=== PATIENT | male | born 1955 | race Caucasian/White ===

== ENCOUNTER 2019-05-17 12:31 | Outpatient (RCR) | payer MEDICARE, SELFPAY ==
[2019-03-12 10:21] LABS: INR 1.6; Prothrombin Time 18.8 Seconds (11.1-14.7)
[2019-03-15 12:17] LABS: INR 2.1
[2019-04-03 10:44] LABS: INR 3.8; Prothrombin Time 36.8 Seconds (11.1-14.7)
[2019-05-07 15:29] LABS: Prothrombin Time 12.9 Seconds (11.1-14.7)
[2019-05-17 13:07] LABS: INR 2.3; Prothrombin Time 25.1 Seconds (11.1-14.7)
== END 2019-06-03 23:59 | disposition home or self-care (01) ==
LOC: ANHLAB 12:31
PROVIDERS: Visit Provider Internal Medicine Cardiovascular Disease
DX: Z95.4 Presence of other heart-valve replacement (principal); Z79.01 Long term (current) use of anticoagulants
CPT/HCPCS: 36415; 85610

== ENCOUNTER 2019-07-04 15:19 | Inpatient (IN) | payer MEDICARE, SELFPAY ==
[2019-07-04] VITALS (26 sets, daily range): BP systolic 77–132; BP diastolic 44–79; PULSE 56–80; RESP 10–23; TEMP 35.8–36.8; O2SAT 93–100; BMI 24.0
--- NOTE | ~2019-07-04 | US_ITS ---
US right upper quadrant INDICATION: Possible choledocholithiasis PROCEDURE: Realtime right upper abdominal ultrasound. COMPARISON: No prior studies for comparison. FINDINGS: The pancreas is normal without focal mass or pancreatic ductal dilation. Fatty infiltratio n of the liver. There is normal directional flow in the portal vein. There are gallstones. Mild gallbladder wall thickening. Common bile duct measures 9 mm. No sonograph ic Luis's sign. IMPRESSION: 1: Choledocholithiasis with dilated common bile duct measuring 9 mm and mild gallbladder wall thicken ing. Findings suspicious for acute cholecystitis. Correlate clinically. Reviewed, dictated and finalized at location A. IMPRESSION: 1: Choledocholithiasis with dilated common bile duct measuring 9 mm and mild ga llbladder wall thickening. Findings suspicious for acute cholecystitis. Correla te clinically.
--- NOTE | ~2019-07-04 | CT_ITS ---
EXAMINATION: CT abdomen pelvis wo con DATE: 07/09/2019 09:19 INDICATION: Right lower quadrant abscess, pain TECHNIQUE: Computed tomography (CT) of the abdomen and pelvis was performed without intravenous contr ast. Automated exposure control and iterative reconstruction technique were employed. Exam dose: 629 .50 mGy-cm total exam DLP. COMPARISON: 07/04/2019 CT abdomen pelvis FINDINGS: There are mild bilateral pleural effusions. No pericardial effusion. There is dependent ate lectasis in both lower lobes. Plate and screws are noted at the sternum; status post aortic valve rep lacement. Coronary artery calcification. Again noted is an approximately 13 mm left hepatic cyst. Calcified splenic granulomas. Multiple stones are noted in the dependent aspect of the gallbladder. No gallbladder wall thickening or pericholecystic fluid or stranding. Small stones are suggested in the common bile duct that there is no common bile duct or pancreatic du ct dilatation. Minimal calcification of the pancreatic head. Normal morphology of the adrenal glands. Again noted are abdominal aortic and right and left common iliac artery aneurysms as described on 07/03. No intraperitoneal or retroperitoneal mass lesion or lymphadenopathy. There is minimal free fluid in the dependent pelvis. There is a percutaneous drainage catheter in the right lower quadrant with nearly complete resolution of right lower quadrant abscess, with minimal remaining fluid and free air. Prostate calcifications. The urinary bladder and seminal vesicles are unremarkable. No bowel obstruction is evident. There is mild anterior wedge compression fracture deformity of L2. Degenerative changes of the thorac ic us and lumbar spine. 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 Reviewed, dictated and finalized at location B. 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
--- NOTE | ~2019-07-04 | XR_ITS ---
EXAMINATION: XR chest 2V EXAM DATE: 07/04/2019 19:39 INDICATION: Cough, right lower quadrant pain. History CHF hypertension. TECHNIQUE: Frontal and lateral projections of the chest obtained and reviewed. Comparison is made to prior examination from 05/10/2019. FINDINGS: Aortic valve replacement. Sternotomy hardware. The lungs are clear. There are no pleural effusions. The cardiomediastinal silhouette is within normal limits. There is no pneumothorax suspe cted. Mild to moderate thoracic spondylosis. IMPRESSION: No acute cardiopulmonary findings. Reviewed, dictated and finalized at location A. [employer]
--- NOTE | ~2019-07-04 | CT_ITS ---
EXAMINATION: CT guide absc cath placement DATE: 07/05/2019 10:41 INDICATION: Periappendiceal abscess. TECHNIQUE: The procedure including the risks, benefits, and alternatives was discussed with the patie nt. Risks discussed included bleeding and infection. The patient understood the risks and benefits an d agreed to proceed. The patient was confirmed to be receiving appropriate antibiotic coverage. The skin overlying the abdomen was prepped and draped in usual sterile fashion. Anesthetic was administe red with 1% lidocaine subcutaneously. Sedation was provided by anesthesiology. An 18 gauge trochar ne edle was inserted into the periappendiceal abscess with CT guidance. The needle was exchanged over a wire for 6 Guatemalan, 8 Guatemalan, and 9 Guatemalan dilators and then for an 8.5 Guatemalan pigtail catheter. The c atheter was stitched to the skin, and a sterile dressing was applied. The mA was adjusted according t o patient size. Iterative reconstruction technique was employed. The dose-length product was 113.92 m Gy-cm. There were no immediate complications. FINDINGS: CT images demonstrate the catheter within the periappendiceal abscess. 6 mL fluid was aspir ated for testing. IMPRESSION: 1. Successful CT-guided periappendiceal abscess drainage. 2. 6 mL foul-smelling, opaque, red-mercado fluid was sent for aerobic and anaerobic cultures. Reviewed, dictated and finalized at location A. MATIC BUFFING WHEEL FORMER
--- NOTE | ~2019-07-04 | CT_ITS ---
EXAMINATION: CT abdomen pelvis w con EXAM DATE: 07/04/2019 19:31 INDICATION: Right lower quadrant pain. TECHNIQUE: Spiral CT of the abdomen and pelvis was performed following intravenous injection of 100 m L Omnipaque 350. Axial, coronal and sagittal images were reviewed. The dose-length product (DLP) fo r this examination was 456.29 mGy-cm. The exposure was tailored according to patient size (auto mA e xposure control), and iterative reconstruction (ASIR) was used as additional dose reduction technique . There is no prior study for comparison. FINDINGS: There is severe edema, inflammation of the terminal ileum and cecal base, with a fluid neil ection which appears to involve the wall of both of these 2 structures measuring about 6 x 10 cm in s ize. There are septations within this wall, some tiny foci of gas and surrounding inflammation. Appen gilmar is not identified. Differential diagnosis includes appendical abscess, cancer, terminal ileitis. No small bowel obstruction. There is a hypodensity in the left liver lobe measuring 1.3 cm consistent with a cyst. The spleen, p ancreas, and adrenal glands are unremarkable. There are gallstones within an otherwise unremarkable gallbladder. No evidence of obstructive biliary disease. Portal and splenic veins are patent. Kidn eys enhance symmetrically. There is no hydronephrosis. The prostate is unremarkable. The bladder is unremarkable. There is no retroperitoneal or pelvic lymphadenopathy. There is abdominal aortic aneurysm measuring 4.1 x 3.5 cm. The right common iliac artery is also aneurysmal at 2.6 cm. Smaller left common iliac artery at 2.3 cm. Aortic valve replacement. Sternotomy wires. The lung bases are unremarkable. There are no osteoblas tic or osteolytic lesions identified. Small umbilical fat-containing hernia. IMPRESSION: 1. Large right lower quadrant abscess involving the patricia of the cecal base and terminal ileum. Coul d be perforated appendicitis with abscess. Differential diagnosis does include cancer, terminal ileit is. 2. Abdominal aortic, common iliac artery aneurysms. Reviewed, dictated and finalized at location A. L MUSIC INSTRUCTOR IMPRESSION: 1. Large right lower quadrant abscess involving the patricia of the cecal base an d terminal ileum. Could be perforated appendicitis with abscess. Differential d iagnosis does include cancer, terminal ileitis. 2. Abdominal aortic, common iliac artery aneurysms.
--- NOTE | ~2019-07-04 | CT_ITS ---
EXAMINATION: CT guide absc cath placement DATE: 07/06/2019 12:14 INDICATION: Periappendiceal abscess. TECHNIQUE: The procedure including the risks, benefits, and alternatives was discussed with the patie nt. Risks discussed included bleeding and infection. The patient understood the risks and benefits an d agreed to proceed. The patient was confirmed to be receiving appropriate antibiotic coverage. The skin overlying the abdomen was prepped and draped in usual sterile fashion. Anesthetic was administe red with 1% lidocaine subcutaneously. The existing abscess drain was cut and exchanged over a wire fo r 10 Serbian, 12 Serbian, and 14 Serbian dilators and then for a 14 Serbian pigtail catheter under [address] candace dance. The catheter was stitched to the skin, and a sterile dressing was applied. The mA was adjusted according to patient size. Iterative reconstruction technique was employed. The dose-length product was 69.68 mGy-cm. There were no immediate complications. FINDINGS: CT images demonstrate the catheter within the periappendiceal abscess. IMPRESSION: 1. Successful CT-guided periappendiceal abscess drain exchange. Reviewed, dictated and finalized at location A. ING MACHINE OPERATOR
[2019-07-04 17:15] LABS: Basophils Absolute Auto 0.1 K/mm3 (0.0-0.1); Basophils Percent Auto 0.2 % (0.2-1.2); Hematocrit 44.6 % (42.0-52.0); Hemoglobin 14.8 g/dL (14.0-18.0); Immature Granulocyte Absolute 0.39 K/mm3 (0.00-0.031); Immature Granulocyte Percent A 1.5 % (0-0.5); Lymphocytes Percent Auto 3.6 % (18.3-44.2); Mean Corpuscular HGB Conc 33.2 g/dl (32-36); Mean Corpuscular Hemoglobin 28.1 pg (26-34); Mean Corpuscular Volume 84.6 fl (80-100); Mean Platelet Volume 10.1 fl (7.4-10.4); Neutrophils Absolute Auto 21.9 K/mm3 (1.3-6.7); Neutrophils Percent Auto 86.7 % (45.5-73.1); Platelet Count Result 411 k/mm3 (150-375); Red Blood Count 5.27 M/mm3 (4.6-6.20); Red Cell Distribution Width 14.2 % (11.5-14.5); White Blood Count 25.3 K/mm3 (4.5-10.0)
[2019-07-04 17:27] LABS: Alanine Aminotransferase 24 U/L (4-50); Albumin Level 3.9 g/dL (3.5-5.1); Alkaline Phosphatase 116 U/L (38-126); Aspartate Amino Transferase 27 U/L (17-59); Bilirubin,Total 0.7 mg/dL (0.2-1.3); Blood Urea Nitrogen 25 mg/dL (9-20); Calcium 9.1 mg/dL (8.4-10.2); Carbon Dioxide 30 mmol/L (22-30); Chloride 85 mmol/L (98-107); Estimated CRCL calculation 51 ml/min; Estimated Glomerular Filt Rate 55; Glucose 279 mg/dL (75-110); Lipase 39 U/L (23-300); Potassium 3.9 mmol/L (3.4-5.0); Sodium 131 mmol/L (137-145)
--- NOTE | 2019-07-04 18:56 | ED.ABDPAIN ---
HPI - Abdominal Pain General Chief Complaint: Abdominal Pain Stated Complaint: blood in stool Time Seen by Provider: 07/04/19 18:54 Source: patient Mode of arrival: ambulatory Limitations: no limitations History of Present Illness HPI narrative: A 64 y/o male pt presents to the ED, with c/o ABD pain x 5 days that is worsening and dark stools that began today. Pt notes sweats, N/V/D, cough, bulging to the rt side of his ABD, SOB d/t pain, but denies dysuria, obvious blood in stools, or frequent/infrequent urination. Pt denies having any similar episodes to this in the past. He notes that laying down and sitting up aggravates his pain. Pt notes a PMHx of CHF, AL, DM. He states that he was prescribed Trulicity for his DM, but he was taken off of this d/t his BS being maintained. Pt reports being hospitalised for his CHF in May 2019. He denies any recent Abx use and reports NKA. Pt rates his pain as a 10. MD elicited complaint: abdominal pain Onset (ago): day(s) (5) Pain Consistency: other (worsening) Location: other (rt abd) Pain scale (0-10): 10 Exacerbating factors: movement Associated symptoms: nausea, vomiting, diarrhea and other (sweats, cough, bulging in rt ABD, SOB d/t pain, dark stools) Related Data Home Medications Medication Instructions Recorded Confirmed aspirin 81 mg PO DAILY 05/10/19 05/10/19 clopidogrel 75 mg PO DAILY 05/10/19 05/10/19 escitalopram oxalate [Lexapro] 20 mg PO DAILY 05/10/19 05/10/19 furosemide 40 mg PO DAILY 05/10/19 05/10/19 gabapentin 300 mg PO TID 05/10/19 05/10/19 isosorbide mononitrate 60 mg PO DAILY 05/10/19 05/10/19 lisinopril 5 mg PO DAILY 05/10/19 05/10/19 nitroglycerin 0.4 mg SUBLINGUAL Q5M PRN 05/10/19 05/10/19 rosuvastatin 20 mg PO DAILY 05/10/19 05/10/19 Allergies Allergy/AdvReac Type Severity Reaction Status Date / Time No Known Allergies Allergy Verified 05/10/19 15:55 Review of Systems Review of Systems: All systems reviewed & are unremarkable except as noted in HPI and below Constitutional: Constitutional: Reports excessive sweating Respiratory: Respiratory: Reports cough and Reports dyspnea (d/t pain) Gastrointestinal: Gastrointestinal: Reports abdominal pain (rt side, rt side bulging), Reports diarrhea, Reports nausea, Reports vomiting and Reports other (dark stools) Genitourinary: Genitourinary: Denies dysuria, Denies urinary frequency and Denies other (infrequent urination) [facility] Past Medical History Medical History Angina at rest Atrial flutter Congestive heart failure Echocardiogram July 2018 showed ejection fraction of 30 to 35% with moderate to severe mitral regurgitation, aortic valve area of 1.3 centimeter squared with mean gradient 8 millimeters of mercury, mild tricuspid regurgitation, and RVSP of 50 to 55 millimeters of mercury. Coronary artery disease Depression Diabetes History of left common carotid artery stent placement March 2019, Bib Bender History of right common carotid artery stent placement December 2018, Bib Villarreal Hyperlipidemia Hypertension Ischemic cardiomyopathy Myocardial infarction Neoplasm of prostate Peripheral vascular disease 2013: Bilateral common femoral artery rectum ease and patch angioplasty by Dr. Moreno 2014: Complex intervention of both femoral arteries and SFA is by Dr. Yancey Tobacco use Surgical History Surgical History H/O aortic valve replacement 2003, mechanical aortic valve replacement H/O mechanical aortic valve replacement H/O Spinal surgery H/O vascular surgery Bilateral common femoral endarterectomy with patch angioplasty in 2012. Status post complex intervention of, and superficial femoral artery History of cardiac cath 03/2011: SVG to PDA occluded, radial to OM was string sign, and MALDONADO to LAD was patent. 09/2018: Chronic total occlusion of the mid LAD and mid RCA as well as proximal circumflex with patent
--- NOTE | 2019-07-04 19:29 | PC.NURSE ---
Called lab to add on on PT INT, PTT
[2019-07-04] MEDS: SODIUM CHLORIDE 0.9% IV 1,000 ML 999 ML IV CONT ×2 (19:41→21:22)
[2019-07-04 19:42] LABS: Lactic Acid Reflex 2.3 mmol/L (0.7-2.1)
[2019-07-04 20:07] LABS: CRP 20.9 mg/dL (<1.0)
[2019-07-04 20:55] LABS: Prothrombin Time > 120.0 Seconds (11.1-14.7)
[2019-07-04 20:57] LABS: INR > 19.0
[2019-07-04 20:58] LABS: Partial Thromboplastin Time 182.9 SECONDS (22.3-36.8)
[2019-07-04] MEDS: PHYTONADIONE INJ 10 MG/ML AMP IM (21:06)
[2019-07-04 21:26] LABS: Add Urine Microscopic? YES; Appearance Urine Clear (Clear); Bilirubin Urine Negative (Negative); Blood Urine 1+ (Negative); Color Urine Yellow (Yellow); Glucose Urine UA 1+ mg/dL (Negative); Ketones Urine Negative (Negative); Leukocyte Esterase Ur Negative LEU/UL (Negative); Mucus Urine Rare /lpf; Nitrate Urine Negative (Negative); Protein Urine 1+ mg/dL (Negative); Specific Grav Ur 1.041 (1.001-1.035); Squamous Epithelial Cell Urine Rare /hpf (Few); Urobilinogen Urine Negative mg/dL (<2.0)
--- NOTE | 2019-07-04 21:30 | PM.IMHP ---
H&P: HPI History of Present Illness Chief complaint: sepsis intra abdominal abscess Narrative: This is a 64 year old Diabetic male with known atrial flutter, CHF, CAD, mechanical aortic valve on chronic anticoagulation w/ warfarin presented to the hospital tonight after having worsening RLQ abdominal pain for the past 5 days. He initially developed RLQ abdominal pain while doing yardwork and simply thought he had pulled a muscle. He has had chills but no overt fevers. He also complains of associated diaphoresis, sporadic cough, and abdominal distention. He has been nauseated but denies any vomiting. He has had diarrhea which he noted was black in color. Today he had #2 episodes of bloody nose. He denies any other symptoms tonight and denies any chest pain. The patient was evaluated in the ER tonight and found to be severely septic with an elevated WBC of 25,300, tachypneic, and an elevated lactic acid of 2.3. CT abd pelvis demonstrated a large right lower quadrant abscess involving the patricia of the cecal base and terminal ileum. The patient's INR came back at 19. General Surgery has been consulted by ER provider and has asked that we admit the patient to the hospital and they will evaluate him. Review of Systems Review of Systems: All systems reviewed & are unremarkable except as noted in HPI and below PMFSH Past Medical History Medical History Angina at rest Atrial flutter Congestive heart failure Echocardiogram July 2018 showed ejection fraction of 30 to 35% with moderate to severe mitral regurgitation, aortic valve area of 1.3 centimeter squared with mean gradient 8 millimeters of mercury, mild tricuspid regurgitation, and RVSP of 50 to 55 millimeters of mercury. Coronary artery disease Depression Diabetes History of left common carotid artery stent placement March 2019, Bib Bender History of right common carotid artery stent placement December 2018, Bib Villarreal Hyperlipidemia Hypertension Ischemic cardiomyopathy Myocardial infarction Neoplasm of prostate Peripheral vascular disease 2013: Bilateral common femoral artery rectum ease and patch angioplasty by Dr. Moreno 2014: Complex intervention of both femoral arteries and SFA is by Dr. Yancey Tobacco use Surgical History Surgical History (Updated 07/04/19 @ 21:42 by Mark Tapia MD) H/O aortic valve replacement 2003, mechanical aortic valve replacement H/O mechanical aortic valve replacement H/O Spinal surgery H/O vascular surgery Bilateral common femoral endarterectomy with patch angioplasty in 2012. Status post complex intervention of, and superficial femoral artery History of cardiac cath 03/2011: SVG to PDA occluded, radial to OM was string sign, and MALDONADO to LAD was patent. 09/2018: Chronic total occlusion of the mid LAD and mid RCA as well as proximal circumflex with patent MALDONADO to LAD. History of endarterectomy Bilateral. S/P CABG x 2 2009. Status post cataract extraction Family History Family History Mother Diabetes mellitus Breast cancer Hypertension Sibling Diabetes mellitus Hypertension Father Hypertension Pneumonia Social History Social History Social History: Lives with girlfriend, Nathaly, in [place]. They have a pit bull named Dayna and a pot belly pig named Thien. 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 Smokes half a pack per day, but smoked as much as 2 packs of cigarettes a day. Occasionally smokes marijuana. Denies alcohol abuse. he designates his girlfriend, Dari, as his surrogate decision maker and wishes to be a full code. Smoking packs per day: 0.5 Smoking cigarettes per day: 10.0 Years smoked: 40 Smoking pack-years: 20.00 Smoking status: Current every day smoker Tobacco type: cigarettes Second hand tobacco smoke exposure: Yes Alcohol intake: never
--- NOTE | 2019-07-04 21:35 | ADMGEN ---
This patient, Onel He, was admitted to Intensive Care Unit-5. Patient/family oriented to hospital policies and general routines including ID bracelet, bed and alarms, visiting hours, pain management, procedures, bathroom and other care routines, personal items, smoking policy, room service/diet, and visiting hours. Valuables list has been completed. Information on how to activate the Rapid Response Team has been discussed. Patient/Family are encouraged to report perceived risks to care and to ask questions if they do not understand what they are told or what they should do.
--- NOTE | 2019-07-04 21:45 | ECG_ITS ---
Measurements Intervals [place] Rate: 76 P: [place]: 0 QRS: 48 QRSD: 119 T: 108 QT: 435 QTc: 491 Interpretive Statements ATRIAL FLUTTER/TACHYCARDIA INTRAVENTRICULAR CONDUCTION DELAY DELAYED PRECORDIAL R/S TRANSITION CONSIDER INFERIOR INFARCT, AGE INDETERMINATE BORDERLINE ST-T WAVE ABNORMALITY- ANTEROLAT/LAT LEADS BASELINE WANDER- V1-V3 ABNORMAL ECG Electronically Signed On 07-07-2019 12:41:10 ASSAYER by Jake Bird D.O.
[2019-07-04 22:22] LABS: Lactic Acid Reflex 1.3 mmol/L (0.7-2.1)
[2019-07-04 22:27] LABS: Reflex Lactic Acid Yes or No Add Lactic
[2019-07-04] MEDS: SODIUM CHLORIDE 0.9% IV 250 ML 30 ML IV CONT (23:17)
[2019-07-04 23:47] LABS: Glucose Point of Care 174 (65-105)
[2019-07-05] VITALS (20 sets, daily range): BP systolic 103–142; BP diastolic 65–108; PULSE 63–122; RESP 16–25; TEMP 36.4–37.4; O2SAT 91–99
[2019-07-05 04:34] LABS: IFOB Positive Control Positive; Immunochemical Fecal Occult Bl Positive (N)
[2019-07-05] MEDS: SODIUM CHLORIDE 0.9% IV 1,000 ML 50 ML IV CONT (05:05)
[2019-07-05 06:11] LABS: Basophils Percent Auto 0.2 % (0.2-1.2); Eosinophils Percent Auto 0.1 % (0-4.4); Hemoglobin 10.8 g/dL (14.0-18.0); Immature Granulocyte Absolute 0.22 K/mm3 (0.00-0.031); Immature Granulocyte Percent A 1.2 % (0-0.5); Lymphocytes Absolute Auto 0.77 K/mm3 (0.9-3.2); Lymphocytes Percent Auto 4.1 % (18.3-44.2); Mean Corpuscular HGB Conc 32.7 g/dl (32-36); Mean Corpuscular Hemoglobin 27.9 pg (26-34); Mean Corpuscular Volume 85.3 fl (80-100); Mean Platelet Volume 9.9 fl (7.4-10.4); Monocytes Absolute Auto 1.7 K/mm3 (0.1-0.6); Monocytes Percent Auto 9.1 % (2.6-8.5); Neutrophils Absolute Auto 15.8 K/mm3 (1.3-6.7); Neutrophils Percent Auto 85.3 % (45.5-73.1); Platelet Count Result 309 k/mm3 (150-375); Red Blood Count 3.87 M/mm3 (4.6-6.20); Red Cell Distribution Width 14.2 % (11.5-14.5); White Blood Count 18.6 K/mm3 (4.5-10.0)
[2019-07-05 06:20] LABS: INR 2.9; Prothrombin Time 29.7 Seconds (11.1-14.7)
[2019-07-05 06:22] LABS: Partial Thromboplastin Time 73.5 SECONDS (22.3-36.8)
--- NOTE | 2019-07-05 07:43 | PM.CNGS ---
Assessment and Plan Assessment and plan (1) Severe sepsis: Code(s): A41.9 - Sepsis, unspecified organism; R65.20 - Severe sepsis without septic shock Status: Acute Assessment and Plan: Improving with critical care management per Dr. bates. Patient has received IV fluids antibiotics. We will proceed with source control today with CT-guided drainage of the right lower quadrant abscess. (2) Abdominal abscess: Status: Acute Assessment and Plan: Proceed with CT-guided drainage of abscess per Radiology. If this does not provide adequate source control, he will need operative drainage. Keep patient NPO and do not restart Plavix or warfarin. (3) Supratherapeutic INR: Code(s): R79.1 - Abnormal coagulation profile Status: Acute Assessment and Plan: Improved after vitamin K and FFP (4) Lactic acidosis: Code(s): E87.2 - Acidosis Status: Acute Assessment and Plan: improving. (5) COPD (chronic obstructive pulmonary disease): Qualifiers: COPD type: unspecified COPD Qualified Code(s): J44.9 - Chronic obstructive pulmonary disease, unspecified Code(s): J44.9 - Chronic obstructive pulmonary disease, unspecified Status: Chronic (6) CHF (congestive heart failure): Qualifiers: Heart failure chronicity: unspecified Heart failure type: unspecified Qualified Code(s): I50.9 - Heart failure, unspecified Code(s): I50.9 - Heart failure, unspecified Status: Chronic (7) Tobacco use: Code(s): Z72.0 - Tobacco use Status: Chronic History of Present Illness Consult details Consult date: 07/05/19 Reason for consult: abdominal pain ( Right lower quadrant for the last 5 days) Narrative: patient is a 64-year-old man with severe cardiac cerebral and peripheral vascular disease. He has had coronary artery bypass and aortic valve replacement. He has also had bilateral carotid artery stents and bilateral femoral endarterectomies as well as bilateral femoral angioplasty and stenting. He has an ejection fraction of 30-35%. He was admitted with congestive heart failure in May of this year. He smokes both cigarettes and occasionally marijuana. He presented to the emergency room with a 5 day history of severe right lower quadrant abdominal pain. In the emergency room he was noted to have a right lower quadrant mass. CT scan showed this to be a large abscess adjacent to the cecum. He had severe coagulopathy last night with INR over 19 and a PT of over 120. He received vitamin K as well as 3 units of FFP. He has also had fluid resuscitation for sepsis. He has been on antibiotics. His protime was down to 29.7 this morning. His INR is now 2.9. APTT is 73.5. I reviewed his CT scan myself and he does have a large abscess in the right lower quadrant most likely due to ruptured appendicitis. He is seen now in consultation. Plans are to proceed with CT-guided drainage later today. He currently feels better and his pain is less than it was last night. He has not had any fever but his initial temperature in the emergency room was 35.8. His blood pressure was low initially and the lowest measurement was 77/44. He has responded to the above therapy including fluid resuscitation and pressures now are 120/70 or better. Review of Systems Review of Systems: All systems reviewed & are unremarkable except as noted in HPI and below Constitutional: Constitutional: Denies headache(s) ENT: Denies headache(s) Cardiovascular: Cardiovascular: Denies chest pain and Denies dyspnea Respiratory: Respiratory: Denies cough and Denies dyspnea Gastrointestinal: Gastrointestinal: Reports as per HPI Neurologic: Denies confusion and Denies headache(s) Psychiatric: Psychiatric: Denies confusion Hematologic/Lymphatic: Hematologic/Lymphatic: Reports easy bleeding and Reports easy bruising Comments: takes both Coumadin and Plavix. PMFSH
--- NOTE | 2019-07-05 08:03 | WPDMODSED ---
Moderate Sedation Note-Pt Data Patient Data Diagnosis: Periappendiceal abscess. Present Complaint: Periappendiceal abscess. Procedure to be performed/Plan: CT-guided periappendiceal abscess drainage. Allergies Allergy/AdvReac Type Severity Reaction Status Date / Time No Known Allergies Allergy Verified 05/10/19 15:55 Home Medications Medication Instructions Recorded Confirmed Type aspirin 81 mg PO DAILY 05/10/19 07/04/19 History clopidogrel 75 mg PO DAILY 05/10/19 07/04/19 History escitalopram oxalate [Lexapro] 20 mg PO DAILY 05/10/19 07/04/19 History furosemide 40 mg PO DAILY 05/10/19 07/04/19 History gabapentin 300 mg PO TID 05/10/19 07/04/19 History isosorbide mononitrate 60 mg PO DAILY 05/10/19 07/04/19 History lisinopril 5 mg PO DAILY 05/10/19 07/04/19 History nitroglycerin 0.4 mg SUBLINGUAL Q5M PRN 05/10/19 07/04/19 History rosuvastatin 20 mg PO DAILY 05/10/19 07/04/19 History metoprolol succinate [Toprol XL] 12.5 mg PO QAM #30 tablet 05/11/19 07/04/19 Rx warfarin [Coumadin] 2 mg PO 3XW 07/04/19 07/04/19 History warfarin [Coumadin] 5 mg PO 3XW 07/04/19 07/04/19 History warfarin [Coumadin] 6 mg PO 4XW 07/04/19 07/04/19 History Current Medications: Active Medications Dextrose (Dextrose 50% Syringe) 12.5 gm IV PUSH PRN PRN; Protocol PRN Reason: Hypoglycemia Glucagon (Glucagon For Inj) 1 mg IM PRN PRN; Protocol PRN Reason: Hypoglycemia Piperacillin/Tazobactam/Dextrose (Zosyn 3.375 Gm/D5w 50ml Pm) 3.375 gm in 50 mls @ 100 mls/hr IVPB Q6HR ABBEY Last Infusion: 07/05/19 05:35 Dose: Infused Documented by: Acetaminophen (Ofirmev 1,000 Mg Ivpb) 1,000 mg in 100 mls @ 400 mls/hr IVPB Q6H PRN PRN Reason: Pain Rated 4-6 Stop: 07/05/19 21:49 Dextrose (Dextrose 5% 1,000 Ml) 1,000 mls @ 100 mls/hr IVPB PRN PRN; Protocol PRN Reason: Hypoglycemia Sodium Chloride (Normal Saline Iv) 1,000 mls @ 50 mls/hr IV CONT .Q20H [facility] Last Admin: 07/05/19 05:05 Dose: 50 mls/hr Documented by: Insulin Aspart (Novolog) 2 - 5 units SUB-Q TIDWM ABBEY; Protocol Sedation/Anesthesia: No previous sedation/anesthesia problems (including family history). [facility] Past Medical History Medical History Angina at rest Atrial flutter Congestive heart failure Echocardiogram July 2018 showed ejection fraction of 30 to 35% with moderate to severe mitral regurgitation, aortic valve area of 1.3 centimeter squared with mean gradient 8 millimeters of mercury, mild tricuspid regurgitation, and RVSP of 50 to 55 millimeters of mercury. Coronary artery disease Depression Diabetes History of left common carotid artery stent placement March 2019, Bib Bender History of right common carotid artery stent placement December 2018, Bib Villarreal Hyperlipidemia Hypertension Ischemic cardiomyopathy Myocardial infarction Neoplasm of prostate Peripheral vascular disease 2013: Bilateral common femoral artery rectum ease and patch angioplasty by Dr. Moreno 2014: Complex intervention of both femoral arteries and SFA is by Dr. Yancey Tobacco use Surgical History Surgical History H/O aortic valve replacement 2003, mechanical aortic valve replacement H/O mechanical aortic valve replacement H/O Spinal surgery H/O vascular surgery Bilateral common femoral endarterectomy with patch angioplasty in 2012. Status post complex intervention of, and superficial femoral artery History of cardiac cath 03/2011: SVG to PDA occluded, radial to OM was string sign, and MALDONADO to LAD was patent. 09/2018: Chronic total occlusion of the mid LAD and mid RCA as well as proximal circumflex with patent MALDONADO to LAD. History of endarterectomy Bilateral. S/P CABG x 2 2009. Status post cataract extraction Family History Family History Mother Diabetes mellitus Breast cancer Hypertension Sibling Diabetes mellitus Hypertension Father
--- NOTE | 2019-07-05 08:46 | WPDCNINT ---
Assessment and Plan Assessment and plan (1) Severe sepsis: Code(s): A41.9 - Sepsis, unspecified organism; R65.20 - Severe sepsis without septic shock Status: Acute Assessment and Plan: patient with severe sepsis, elevated lactic acid, supratherapeutic INR and leukocytosis or chills. Likely related to abdominal abscess - continue Zosyn - patient adequately fluid-resuscitated - lactic acid has normalized - blood cultures obtained and pending (2) Abdominal abscess: Status: Acute Assessment and Plan: appreciate surgery evaluation and recommendations. Patient to proceed with CT-guided drainage of right lower quadrant abscess - will send fluid for culture - pain control (3) Supratherapeutic INR: Code(s): R79.1 - Abnormal coagulation profile Status: Acute Assessment and Plan: patient presented with supratherapeutic INR > 19. patient was given 2 units of FFP is and vitamin K, this morning INR is 2.9 (4) Ischemic cardiomyopathy: Code(s): I25.5 - Ischemic cardiomyopathy Status: Acute Assessment and Plan: patient has history of ischemic cardiomyopathy - echocardiogram on 05/11/2019 showed an EF of 30-35% with moderately reduced LV systolic function. Aortic valve mechanical prosthesis is poorly visualized, functional valve area 1.6 centimeters squared. No prosthetic regurgitation. (5) H/O mechanical aortic valve replacement: Code(s): Z95.2 - Presence of prosthetic heart valve Status: Chronic Assessment and Plan: Patient on Coumadin, INR supratherapeutic, received FFP and vitamin K, INR 2.9 (6) Atrial flutter: Qualifiers: Atrial flutter type: unspecified Qualified Code(s): I48.92 - Unspecified atrial flutter Code(s): I48.92 - Unspecified atrial flutter Status: Chronic Assessment and Plan: Rate controlled atrial flutter (7) DVT prophylaxis: Code(s): Z29.9 - Encounter for prophylactic measures, unspecified Status: Acute Assessment and Plan: therapeutic INR Additional Plan discussed with patient updated with his condition and plan of care. He is aware that his abscess is going to be drained today. Code status: Full code Critical care time spent: 43 minutes Due to a high probability of clinically significant, life threatening deterioration, the patient required my highest level of preparedness to intervene emergently and I personally spent this critical care time directly and personally managing the patient. This critical care time included obtaining a history; examining the patient; pulse oximetry; ordering and review of studies; arranging urgent treatment with development of a management plan; evaluation of patient's response to treatment; frequent reassessment; and discussions with other providers. It was exclusive of separately billable procedures and treating other patients and teaching time. Please see Assessment and Plan section and the rest of the note for further information on patient assessment and treatment [facility] Consult Note Consult date: 07/05/19 Time Seen: 07:01 Reason for consult: severe sepsis, intra-abdominal abscess HPI: Onel He is a 64 year old male with significant past medical history of ischemic cardiomyopathy, diabetes, atrial flutter, CHF, mechanical aortic valve on chronic anticoagulation with warfarin, peripheral vascular disease presented the ED on 07/04/2019 with complains of worsening right lower abdominal pain for about 5 days. In the emergency room he was noted to have a right lower quadrant mass it CT scan showed this to be a large abscess adjacent to the cecum. He denies any fevers but complained of chills along with diaphoresis, sporadic cough and abdominal distension. Patient also complained of nausea but no vomiting. He has been having diarrhea which is noted to be black in color. He also had 2 episodes of epistaxis. David
--- NOTE | 2019-07-05 09:37 | WPDANESEPPF ---
Anes - Initial Pre Proc Eval Procedure: Drain placement under CT Date/Time: 07/05/19 09:37 Surgeon: Gary Pre Op Diagnosis: sepsis intra abdominal abscess Patient Data Age: 64 Gender: M Height: 1.75 m Weight: 74.3 kg Last Vital Signs Temp 36.5 C 07/05/19 08:00 Pulse 75 07/05/19 08:00 Resp 16 07/05/19 08:00 BP 142/76 H 07/05/19 08:00 Pulse Ox 99 07/05/19 08:00 Allergies Allergy/AdvReac Type Severity Reaction Status Date / Time No Known Allergies Allergy Verified 05/10/19 15:55 Home Medications Medication Instructions Recorded Confirmed Type aspirin 81 mg PO DAILY 05/10/19 07/04/19 History clopidogrel 75 mg PO DAILY 05/10/19 07/04/19 History escitalopram oxalate [Lexapro] 20 mg PO DAILY 05/10/19 07/04/19 History furosemide 40 mg PO DAILY 05/10/19 07/04/19 History gabapentin 300 mg PO TID 05/10/19 07/04/19 History isosorbide mononitrate 60 mg PO DAILY 05/10/19 07/04/19 History lisinopril 5 mg PO DAILY 05/10/19 07/04/19 History nitroglycerin 0.4 mg SUBLINGUAL Q5M PRN 05/10/19 07/04/19 History rosuvastatin 20 mg PO DAILY 05/10/19 07/04/19 History metoprolol succinate [Toprol XL] 12.5 mg PO QAM #30 tablet 05/11/19 07/04/19 Rx warfarin [Coumadin] 2 mg PO 3XW 07/04/19 07/04/19 History warfarin [Coumadin] 5 mg PO 3XW 07/04/19 07/04/19 History warfarin [Coumadin] 6 mg PO 4XW 07/04/19 07/04/19 History Laboratory Tests 07/04/19 07/04/19 07/04/19 17:07 17:07 19:22 WBC 25.3 K/mm3 H K/mm3 (4.5-10.0) RBC 5.27 M/mm3 M/mm3 (4.6-6.20) Hgb 14.8 g/dL g/dL (14.0-18.0) Hct 44.6 % % (42.0-52.0) MCV 84.6 fl fl (80-100) MCH 28.1 pg pg (26-34) MCHC 33.2 g/dl g/dl (32-36) RDW 14.2 % % (11.5-14.5) Plt Count 411 k/mm3 H k/mm3 (150-375) MPV 10.1 fl fl (7.4-10.4) Immature Gran % (Auto) 1.5 % H % (0-0.5) Neut % (Auto) 86.7 % H % (45.5-73.1) Lymph % (Auto) 3.6 % L % (18.3-44.2) V[place] % (Auto) 8.0 % % (2.6-8.5) Eos % (Auto) 0.0 % % (0-4.4) Baso % (Auto) 0.2 % % (0.2-1.2) Lymph # (Auto) 0.90 K/mm3 K/mm3 (0.9-3.2) [place] # (Auto) 2.0 K/mm3 H K/mm3 (0.1-0.6) Eos # (Auto) 0.0 K/mm3 K/mm3 (0-0.3) Baso # (Auto) 0.1 K/mm3 K/mm3 (0.0-0.1) Abs Immat Gran (auto) 0.39 K/mm3 H K/mm3 (0.00-0.031) Absolute Neuts (auto) 21.9 K/mm3 H K/mm3 (1.3-6.7) Absolute Nucleated RBC 0.0 K/mm3 K/mm3 (0.0-0.012) Nucleated RBC % 0.0 % % (0.0-0.2) PT INR APTT Sodium 131 mmol/L L mmol/L (137-145) Potassium 3.9 mmol/L mmol/L (3.4-5.0) Chloride 85 mmol/L L mmol/L (98-107) Carbon Dioxide 30 mmol/L mmol/L (22-30) BUN 25 mg/dL H mg/dL (9-20) Creatinine 1.30 mg/dL mg/dL (0.7-1.3) Estim Creat Clear Calc 51 ml/min ml/min Estimated GFR 55 L (59 - ) Glucose 279 mg/dL H mg/dL (75-110) POC Capillary Glucose Lactic Acid 2.3 mmol/L H mmol/L (0.7-2.1) Calcium 9.1 mg/dL mg/dL (8.4-10.2) Total Bilirubin 0.7 mg/dL mg/dL (0.2-1.3) AST 27 U/L U/L (17-59) ALT 24 U/L U/L (4-50) Alkaline Phosphatase 116 U/L U/L (38-126) C-Reactive Protein Total Protein 8.0 g/dL g/dL (6.3-8.2) Albumin 3.9 g/dL g/dL (3.5-5.1) Lipase 39 U/L U/L (23-300) Urine Color Urine Appearance Urine pH Ur Specific [place] Urine Protein Urine Glucose (UA) Urine Ketones Ur Blood (Man) Urine Nitrate Urine Bilirubin Urine Urobilinogen Leukocyte Esterase Rfl Urine RBC Urine WBC Ur Squamous
--- NOTE | 2019-07-05 11:39 | PM.IMPN ---
Progress Note: A&P Assessment and Plan (1) Abdominal abscess: Status: Acute Assessment and Plan: Likely a perforated appendicitis? The patient with severe sepsis from a large abdominal abscess. Percut drain placed today. Follow up on cultures. Continue abx. (2) Severe sepsis: Code(s): A41.9 - Sepsis, unspecified organism; R65.20 - Severe sepsis without septic shock Status: Acute Assessment and Plan: Source of sepsis appears to be intraabdominal abscess. Currently on IV Zosyn Day2. Blood cultures NGTD. Percut drain placed today. Follow up on culture results. Appreciate General Surgery and Switch Operator input. (3) Supratherapeutic INR: Code(s): R79.1 - Abnormal coagulation profile Status: Acute Assessment and Plan: PT/PTT were markedly elevated (unmeasurable). INR reversed w/ vitamin K and FFP. INR better at 2.9. Monitor PT/INR. Start Heparin once INR<2.0. (4) Lactic acidosis: Code(s): E87.2 - Acidosis Status: Acute Assessment and Plan: Secondary to severe sepsis from abdominal abscess. Repeat Lactic acid was normal. (5) CHF (congestive heart failure): Qualifiers: Heart failure chronicity: unspecified Heart failure type: unspecified Qualified Code(s): I50.9 - Heart failure, unspecified Code(s): I50.9 - Heart failure, unspecified Status: Chronic Assessment and Plan: Currently compensated. Monitor Is and Os, daily weights closely. (6) Atrial flutter: Qualifiers: Atrial flutter type: unspecified Qualified Code(s): I48.92 - Unspecified atrial flutter Code(s): I48.92 - Unspecified atrial flutter Status: Chronic Assessment and Plan: Tele reviewed. Patient is rate controlled. Continue to monitor. (7) H/O mechanical aortic valve replacement: Code(s): Z95.2 - Presence of prosthetic heart valve Status: Chronic Assessment and Plan: Patient with a [employer] mechanical valve. INR better. Resume coumadin when appropriate. May need Heparin drip if further surgery/procedure planned. (8) Diabetes: Qualifiers: Diabetes mellitus complication status: without complication Diabetes mellitus loan adviser insulin use: without loan adviser use Diabetes mellitus type: type 2 Qualified Code(s): E11.9 - Type 2 diabetes mellitus without complications Code(s): E11.9 - Type 2 diabetes mellitus without complications Status: Chronic Assessment and Plan: A1c 6.4 last year. Glucose reviewed on 07/05/19 but not many values. Continue accuchecks with SSI Coverage and hypoglycemic protocol. (9) Hypertension: Qualifiers: Hypertension type: unspecified Qualified Code(s): I10 - Essential (primary) hypertension Code(s): I10 - Essential (primary) hypertension Status: Chronic Assessment and Plan: Continue to hold home antihypertensives as the patient has been hypotensive. Monitor blood pressure. Resume home antihypertensives when appropriate. Subjective Date/time seen: 07/05/19 0740 Interval history: 64yo male with chronic AFlutter adn mechanical AVR here for abd abscess. Pateint noted RLQ abdominal pain on Tuesday. Pain progressively worsened and he noted swelling in the RLQ. No fever but subjective chills. Developed nausea and vomiting and diarrhea. Decreased appetite. He was admitted to the ICU. no problems overnight. Pain controlled. Exam Narrative: Exam Narrative: Gen - NARD Chest -expiratory rhonchi anteriorly and flanks. CV - RRR S1/S2; telemetry showing atrial flutter. Abd -soft. Positive bowel sounds. Large, firm and tender right lower quadrant mass. Ext - No pedal edema Psych - Nml mood and affect Skin - Warm and dry Objective Data Vital Signs Vital Signs: Vital Signs - 24 hr 07/04/19 17:00 07/04/19 19:13 07/04/19 19:41 Temperature 96.5 F L 98.3 F Pulse Rate 56 L 80 76 Respi
[2019-07-05] MEDS: PANTOPRAZOLE SODIUM IV 40 MG VIAL IV PUSH ×2 (12:36→22:13)
[2019-07-05 17:19] LABS: Glucose Point of Care 290 (65-105)
[2019-07-05] MEDS: INSULIN ASPART (*BKC) 100 UNITS/ML SUB-Q (17:40)
[2019-07-06] VITALS (12 sets, daily range): BP systolic 75–115; BP diastolic 51–90; PULSE 73–105; RESP 10–20; TEMP 36.4–37.1; O2SAT 93–98; BMI 24.2
[2019-07-06 04:43] LABS: Basophils Absolute Auto 0.1 K/mm3 (0.0-0.1); Basophils Percent Auto 0.3 % (0.2-1.2); Hematocrit 35.9 % (42.0-52.0); Hemoglobin 11.7 g/dL (14.0-18.0); Immature Granulocyte Absolute 0.25 K/mm3 (0.00-0.031); Immature Granulocyte Percent A 1.1 % (0-0.5); Lymphocytes Absolute Auto 0.82 K/mm3 (0.9-3.2); Lymphocytes Percent Auto 3.7 % (18.3-44.2); Mean Corpuscular HGB Conc 32.6 g/dl (32-36); Mean Corpuscular Hemoglobin 28.1 pg (26-34); Mean Corpuscular Volume 86.1 fl (80-100); Mean Platelet Volume 10.2 fl (7.4-10.4); Monocytes Absolute Auto 1.6 K/mm3 (0.1-0.6); Monocytes Percent Auto 7.1 % (2.6-8.5); Neutrophils Absolute Auto 19.2 K/mm3 (1.3-6.7); Neutrophils Percent Auto 87.8 % (45.5-73.1); Platelet Count Result 344 k/mm3 (150-375); Red Blood Count 4.17 M/mm3 (4.6-6.20); Red Cell Distribution Width 14.3 % (11.5-14.5); White Blood Count 21.9 K/mm3 (4.5-10.0)
[2019-07-06 04:55] LABS: Hemoglobin A1C 8.5 % (<5.7)
[2019-07-06 05:00] LABS: Albumin Level 3.1 g/dL (3.5-5.1); Blood Urea Nitrogen 14 mg/dL (9-20); Calcium 8.3 mg/dL (8.4-10.2); Carbon Dioxide 37 mmol/L (22-30); Chloride 91 mmol/L (98-107); Estimated CRCL calculation 65 ml/min; Estimated Glomerular Filt Rate > 60; Glucose 183 mg/dL (75-110); Magnesium 1.7 mg/dL (1.6-2.3); Potassium 3.1 mmol/L (3.4-5.0); Sodium 133 mmol/L (137-145)
[2019-07-06 07:49] LABS: Glucose Point of Care 165 (65-105)
--- NOTE | 2019-07-06 08:44 | PM.PNGS ---
Progress Note: A&P Assessment and Plan (1) Abdominal abscess: Status: Acute Assessment and Plan: Drainage from pigtail has the appearance of fecal matter. If this is the case, the abscess may not be adequately drained with pigtail catheter drainage. 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 . He is definitely improved from yesterday and the day before. Will repeat labs tomorrow and continue clear liquid diet. I will repeat his protime and INR tomorrow as well. Surgery may be necessary but he is a very poor surgical candidate and the decision to operate should not be taken lightly. (2) Severe sepsis: Code(s): A41.9 - Sepsis, unspecified organism; R65.20 - Severe sepsis without septic shock Status: Acute Assessment and Plan: Much improved. Hopefully adequate source control with pigtail catheter drainage done yesterday. Continue IV antibiotics. Okay to transfer from ICU from my perspective. (3) Supratherapeutic INR: Code(s): R79.1 - Abnormal coagulation profile Status: Acute Assessment and Plan: Recheck coags tomorrow. (4) Ischemic cardiomyopathy: Code(s): I25.5 - Ischemic cardiomyopathy Status: Chronic (5) CAD (coronary artery disease): Code(s): I25.10 - Atherosclerotic heart disease of cheesh-na coronary artery without angina pectoris Status: Chronic (6) H/O mechanical aortic valve replacement: Code(s): Z95.2 - Presence of prosthetic heart valve Status: Chronic (7) Tobacco use: Code(s): Z72.0 - Tobacco use Status: Chronic (8) Hypertension: Qualifiers: Hypertension type: unspecified Qualified Code(s): I10 - Essential (primary) hypertension Code(s): I10 - Essential (primary) hypertension Status: Chronic (9) Diabetes: Qualifiers: Diabetes mellitus type: type 2 Diabetes mellitus shelter insulin use: without outside plant supervisor use Diabetes mellitus complication status: without complication Qualified Code(s): E11.9 - Type 2 diabetes mellitus without complications Code(s): E11.9 - Type 2 diabetes mellitus without complications Status: Chronic Subjective Subjective Date/Time Seen: 07/06/19 08:44 Feels better. Right lower quadrant drain site is sore. Tolerated clear liquids without difficulty. Review of Systems Review of Systems: All systems reviewed & are unremarkable except as noted in HPI and below Constitutional: Constitutional: Denies headache(s) ENT: Denies headache(s) Cardiovascular: Cardiovascular: Denies chest pain and Denies dyspnea Respiratory: Respiratory: Denies cough and Denies dyspnea Gastrointestinal: Gastrointestinal: Reports as per HPI Neurologic: Denies confusion and Denies headache(s) Psychiatric: Psychiatric: Denies confusion Exam Const: General: comfortable and no acute distress; No confusion Orientation/consciousness: patient oriented x3 and No confusion GI: Inspection: non-distended and incision ( Right lower quadrant pigtail draining feculent material) GI Palp: Yes Soft to palpation, Yes Tenderness to palpation present (GI) ( right lower quadrant drain site.), No Guarding due to palpation present (GI) and No Rebound tenderness present Auscultation: normal bowel sounds Neuro: General: patient oriented x3, no focal motor deficits and No confusion Extrem: General: no calf tenderness and no edema Psych: Affect: normal affect Insight: Good insight present (Psych) Judgement: Good judgement present (Psych) Objective Data Vital Signs Vital Signs: Vital Signs - 24 hr 07/05/19 10:00 07/05/19 12:00 07/05/19 14:00 Temperature 36.5 C 36.6 C Pulse Rate 80 63 66 Respiratory Rate 22 H 22 H 25 H Blood Pressure 115/73 115/71 133/80 Pulse Oximetry 95 96 95 07/05/19 16:00 07/05/19 18:00 07/05/19 20:00 Temperature 37.4 C 37.2 C Pulse Rate 122 H 94 70 Respiratory Rate 16 22 H 18 Blood Pressure 123/108
[2019-07-06] MEDS: POTASSIUM CHLORIDE 20 MEQ TABLET.ER PO ×3 (09:10→17:00)
[2019-07-06] MEDS: KCL 40 MEQ/D5/0.9% SOD CHL 1,000 ML 60 ML IV CONT (09:10)
[2019-07-06] MEDS: PANTOPRAZOLE 40 MG TABLET PO (09:10)
[2019-07-06 12:29] LABS: Glucose Point of Care 260 (65-105)
[2019-07-06] MEDS: INSULIN ASPART (*BKC) 100 UNITS/ML SUB-Q (12:31)
--- NOTE | 2019-07-06 14:43 | PM.IMPN ---
Progress Note: A&P Assessment and Plan (1) Abdominal abscess: Status: Acute Assessment and Plan: Likely a perforated appendicitis. Can not exclude cancer. The patient with severe sepsis from a large abdominal abscess. Percut drain replaced today. Blood cultures NGTD. Abscess culture pending. Continue abx. Check CEA (2) Severe sepsis: Code(s): A41.9 - Sepsis, unspecified organism; R65.20 - Severe sepsis without septic shock Status: Acute Assessment and Plan: Source of sepsis appears to be intraabdominal abscess. Currently on IV Zosyn Day3. Blood cultures NGTD. MRSA nasal swab negative. Percut drain replaced today. Abscess cx growing GNB and GPC. Follow up on culture results. Appreciate General Surgery. (3) Supratherapeutic INR: Code(s): R79.1 - Abnormal coagulation profile Status: Acute Assessment and Plan: PT/PTT were markedly elevated (unmeasurable). INR reversed w/ vitamin K and FFP. INR better. Monitor PT/INR. Start Heparin once INR<2.0. (4) Lactic acidosis: Code(s): E87.2 - Acidosis Status: Acute Assessment and Plan: Secondary to severe sepsis from abdominal abscess. Repeat Lactic acid was normal. (5) CHF (congestive heart failure): Qualifiers: Heart failure chronicity: unspecified Heart failure type: unspecified Qualified Code(s): I50.9 - Heart failure, unspecified Code(s): I50.9 - Heart failure, unspecified Status: Chronic Assessment and Plan: Currently compensated. Monitor Is and Os, daily weights closely. Still on IVF. (6) Atrial flutter: Qualifiers: Atrial flutter type: unspecified Qualified Code(s): I48.92 - Unspecified atrial flutter Code(s): I48.92 - Unspecified atrial flutter Status: Chronic Assessment and Plan: Tele reviewed. Patient is rate controlled. Continue to monitor. (7) H/O mechanical aortic valve replacement: Code(s): Z95.2 - Presence of prosthetic heart valve Status: Chronic Assessment and Plan: Patient with a [employer] mechanical valve. INR better. Resume coumadin when appropriate. May need Heparin drip if further surgery/procedure planned. (8) Diabetes: Qualifiers: Diabetes mellitus complication status: without complication Diabetes mellitus snf insulin use: without manager intermediate use Diabetes mellitus type: type 2 Qualified Code(s): E11.9 - Type 2 diabetes mellitus without complications Code(s): E11.9 - Type 2 diabetes mellitus without complications Status: Chronic Assessment and Plan: A1c 8.5. Glucose reviewed on 07/06/19 and ranging anywhere from 160-290. Not on home meds for DM. Continue accuchecks with SSI coverage and hypoglycemic protocol. Add Lantus (9) Hypertension: Qualifiers: Hypertension type: unspecified Qualified Code(s): I10 - Essential (primary) hypertension Code(s): I10 - Essential (primary) hypertension Status: Chronic Assessment and Plan: BP reviewed on 07/06/19. BP 75/51 but not felt to be real per RN. BP otherwise stable. Continue to hold home antihypertensive medication for now. Monitor blood pressure. Resume home antihypertensives when appropriate. Subjective Date/time seen: 07/06/19 14:43 Interval history: 64yo male with chronic AFlutter and mechanical AVR here for abd abscess. Pain better controlled. Feels better. Does feel sore in the abdomen. Toelrting clear liquid diet. +flatus. No CP or SOB. Drain replaced today. Exam Narrative: Exam Narrative: Gen - NARD lying semirecumbent in bed Chest -CTA bilaterally. nml RR CV - RRR S1/S2; telemetry showing atrial flutter with variable conduction (currently 2:1). Abd -soft. Positive bowel sounds. RLQ dressing that is clean and dry. chocolate brown liquid in drain Ext - No pedal edema Psych - Nml mood and affect Skin - Warm and dry Objec
[2019-07-06 15:16] LABS: INR 2.8; Prothrombin Time 29.1 Seconds (11.1-14.7)
[2019-07-06 16:45] LABS: Glucose Point of Care 142 (65-105)
[2019-07-06] MEDS: ESCITALOPRAM OXALATE 10 MG TABLET 20 MG PO (16:59)
[2019-07-06] MEDS: GABAPENTIN 300 MG CAPSULE PO ×2 (17:00→21:23)
[2019-07-06 21:47] LABS: Glucose Point of Care 129 (65-105)
[2019-07-06] MEDS: INSULIN GLARGINE (*BKC) 100 UNITS/ML 8 UNITS SUB-Q (22:27)
[2019-07-07] VITALS (14 sets, daily range): BP systolic 91–103; BP diastolic 54–69; PULSE 63–99; RESP 16–22; TEMP 36.1–36.9; O2SAT 90–96
--- NOTE | 2019-07-07 01:18 | ADMGEN ---
This patient, Onel He, was transferred from ICU-5 to IMU Room 201-01 on 07/06/19 at 1900. Patient/family oriented to hospital policies and general routines including ID bracelet, bed and alarms, visiting hours, pain management, procedures, bathroom and other care routines, personal items, smoking policy, room service/diet, and visiting hours. Valuables list has been completed. Report received from ANGY Varela. Information on how to activate the Rapid Response Team has been discussed. Patient/Family are encouraged to report perceived risks to care and to ask questions if they do not understand what they are told or what they should do.
[2019-07-07] MEDS: GABAPENTIN 300 MG CAPSULE PO ×3 (05:08→20:24)
[2019-07-07] MEDS: KCL 40 MEQ/D5/0.9% SOD CHL 1,000 ML 60 ML IV CONT ×2 (05:08→23:35)
[2019-07-07 05:31] LABS: Hematocrit 32.2 % (42.0-52.0); Hemoglobin 10.4 g/dL (14.0-18.0); Mean Corpuscular HGB Conc 32.3 g/dl (32-36); Mean Corpuscular Hemoglobin 28.2 pg (26-34); Mean Corpuscular Volume 87.3 fl (80-100); Mean Platelet Volume 10.4 fl (7.4-10.4); Platelet Count Result 347 k/mm3 (150-375); Red Blood Count 3.69 M/mm3 (4.6-6.20); Red Cell Distribution Width 14.2 % (11.5-14.5); White Blood Count 15.5 K/mm3 (4.5-10.0)
[2019-07-07 05:42] LABS: INR 2.9; Prothrombin Time 29.5 Seconds (11.1-14.7)
[2019-07-07 05:43] LABS: Partial Thromboplastin Time 76.2 SECONDS (22.3-36.8)
[2019-07-07 05:46] LABS: Blood Urea Nitrogen 12 mg/dL (9-20); Calcium 7.6 mg/dL (8.4-10.2); Carbon Dioxide 34 mmol/L (22-30); Chloride 92 mmol/L (98-107); Estimated CRCL calculation 80 ml/min; Estimated Glomerular Filt Rate > 60; Glucose 203 mg/dL (75-110); Potassium 3.4 mmol/L (3.4-5.0); Sodium 129 mmol/L (137-145)
[2019-07-07 06:05] LABS: Glucose Point of Care 210 (65-105)
[2019-07-07 06:15] LABS: Carcinoembryonic Antigen 1.5 ng/mL (0.0-3.0)
[2019-07-07] MEDS: ESCITALOPRAM OXALATE 10 MG TABLET 20 MG PO (09:48)
[2019-07-07] MEDS: POTASSIUM CHLORIDE 20 MEQ TABLET.ER PO ×3 (09:49→17:08)
[2019-07-07] MEDS: PANTOPRAZOLE 40 MG TABLET PO (09:49)
--- NOTE | 2019-07-07 11:37 | PM.IMPN ---
Progress Note: A&P Assessment and Plan (1) Abdominal abscess: Status: Acute Assessment and Plan: Likely a perforated appendicitis. Can not exclude cancer but CEA 1.5. The patient with severe sepsis from a large abdominal abscess. Percut drain in place and clinically improving. Abscess culture growing Strept miliieri. Continue abx. (2) Severe sepsis: Code(s): A41.9 - Sepsis, unspecified organism; R65.20 - Severe sepsis without septic shock Status: Acute Assessment and Plan: Source of sepsis is an intraabdominal abscess. Currently on IV Zosyn Day4. Blood cultures NGTD. MRSA nasal swab negative. Percut drain placed on 07/05/19 but replaced with higher gauge on 07/06/19. Abscess cx results as above. Appreciate General Surgery input. (3) Supratherapeutic INR: Code(s): R79.1 - Abnormal coagulation profile Status: Acute Assessment and Plan: PT/PTT were markedly elevated (unmeasurable). INR reversed w/ vitamin K and FFP. INR better at 2.9 today. Monitor PT/INR. Start Heparin once INR<2.0. (4) Lactic acidosis: Code(s): E87.2 - Acidosis Status: Acute Assessment and Plan: Secondary to severe sepsis from abdominal abscess. Repeat Lactic acid was normal. (5) CHF (congestive heart failure): Qualifiers: Heart failure chronicity: chronic Heart failure type: systolic Qualified Code(s): I50.22 - Chronic systolic (congestive) heart failure Code(s): I50.9 - Heart failure, unspecified Status: Chronic Assessment and Plan: Echo 05/11/19 showing LV EF 30-35%. Currently compensated. +Fluid balance. Monitor Is and Os, daily weights closely. Still on IVF. Watch closely. (6) Atrial flutter: Qualifiers: Atrial flutter type: unspecified Qualified Code(s): I48.92 - Unspecified atrial flutter Code(s): I48.92 - Unspecified atrial flutter Status: Chronic Assessment and Plan: Patient with chronic AFlutter. Heart rate is controlled. Continue to monitor. (7) H/O mechanical aortic valve replacement: Code(s): Z95.2 - Presence of prosthetic heart valve Status: Chronic Assessment and Plan: Patient with a [facility] mechanical valve. Echo 05/11/19 shows that the aortic valve mechanical prosthesis is poorly visualized. Functional valve area 1.6 cm2. No prosthetic regurgitation. INR >19 on admission but better now. Resume coumadin when appropriate. Would recommend Heparin drip if further surgery/procedure planned. (8) Diabetes: Qualifiers: Diabetes mellitus type: type 2 Diabetes mellitus detention insulin use: without detention use Diabetes mellitus complication status: without complication Qualified Code(s): E11.9 - Type 2 diabetes mellitus without complications Code(s): E11.9 - Type 2 diabetes mellitus without complications Status: Chronic Assessment and Plan: A1c 8.5. Glucose reviewed on 07/07/19 and ranging anywhere from 120-210. Not on home meds for DM. Lantus started. Continue accuchecks with SSI coverage and hypoglycemic protocol. Monitor closely if IVF stopped. (9) Hypertension: Qualifiers: Hypertension type: unspecified Qualified Code(s): I10 - Essential (primary) hypertension Code(s): I10 - Essential (primary) hypertension Status: Chronic Assessment and Plan: BP reviewed on 07/07/19. BP 75/51 yesterday but not felt to be real per RN. BP otherwise stable since then. 'Normal' BP possibly related to the sepsis. Takes metoprolol, lisinopril, ISMO and Lasix at home. Continue to hold home antihypertensive medication for now. Monitor blood pressure. Resume home antihypertensives when appropriate. (10) Hypokalemia: Code(s): E87.6 - Hypokalemia Status: Acute Assessment and Plan: Potassium 3.4 today. He currently has potassium in IVF and on oral replacement so julienne
[2019-07-07] MEDS: INSULIN ASPART (*BKC) 100 UNITS/ML SUB-Q ×2 (12:47→17:09)
[2019-07-07 13:01] LABS: Glucose Point of Care 218 (65-105)
--- NOTE | 2019-07-07 14:00 | PM.PNGS ---
Progress Note: A&P Assessment and Plan (1) Abdominal abscess: Status: Acute Assessment and Plan: Seems to be drained better with 14 [place] pigtail catheter rather than the 8.5 Icelandic she had initially. White count is down to 15.5 1000 as well. Abdomen is negative to exam. Will advance to soft diet. (2) Supratherapeutic INR: Code(s): R79.1 - Abnormal coagulation profile Status: Acute Assessment and Plan: INR 2.9 again yesterday (3) Ischemic cardiomyopathy: Code(s): I25.5 - Ischemic cardiomyopathy Status: Chronic Assessment and Plan: poor surgical candidate (4) H/O mechanical aortic valve replacement: Code(s): Z95.2 - Presence of prosthetic heart valve Status: Chronic (5) Peripheral vascular disease: Code(s): I73.9 - Peripheral vascular disease, unspecified Status: Acute (6) History of right common carotid artery stent placement: Code(s): Z98.890 - Other specified postprocedural states; Z95.828 - Presence of other vascular implants and grafts Status: Acute Subjective Subjective Date/Time Seen: 07/07/19 14:00 Patient reports: no new complaints, feels better and pain is less Interval history: Larger pigtail catheter placed yesterday under CT guidance. Seems to be draining better. Patient reports he feels better today. Review of Systems Review of Systems: All systems reviewed & are unremarkable except as noted in HPI and below ( HPI) Constitutional: Constitutional: Denies chills and Denies fever(s) Gastrointestinal: Gastrointestinal: Denies abdominal pain, Denies GI cramping, Denies nausea and Denies vomiting Exam Const: General: comfortable and no acute distress; No confusion Orientation/consciousness: patient oriented x3 and No confusion GI: Inspection: other ( Seropurulent or possibly feculent drainage from pigtail catheter.) GI Palp: Yes Soft to palpation, Yes Tenderness to palpation present (GI) ( tender at exit site of pigtail catheter.), No Guarding due to palpation present (GI), No Palpable mass present and No Rebound tenderness present Auscultation: normal bowel sounds Neuro: General: patient oriented x3, no focal motor deficits and No confusion Extrem: General: no calf tenderness and no edema Psych: Affect: normal affect Insight: Good insight present (Psych) Judgement: Good judgement present (Psych) Objective Data Vital Signs Vital Signs: Vital Signs - 24 hr 07/06/19 16:00 07/06/19 18:00 07/06/19 20:00 Temperature 36.6 C 36.4 C L Pulse Rate 76 75 76 Respiratory Rate 19 18 Blood Pressure 107/60 Pulse Oximetry 97 07/06/19 22:00 07/07/19 00:00 07/07/19 01:31 Temperature 36.1 C L Pulse Rate 75 74 63 Respiratory Rate 18 Blood Pressure 99/54 L Pulse Oximetry 94 07/07/19 04:00 07/07/19 06:00 07/07/19 08:00 Temperature 36.1 C L 36.2 C L Pulse Rate 72 68 73 Respiratory Rate 18 20 Blood Pressure 101/67 100/62 Pulse Oximetry 90 93 07/07/19 10:00 07/07/19 12:00 Temperature 36.6 C Pulse Rate 75 75 Respiratory Rate 20 Blood Pressure 103/69 Pulse Oximetry 93 Intake/Output Intake/Output: Intake & Output 07/04/19 07/05/19 07/06/19 07/07/19 23:59 23:59 23:59 23:59 Intake Total 1050 1734 2588 1432 Output Total 1000 1400 545 Balance 1960 497 0447 887 Meds/Results Medications: Active Medications Generic Name Dose Route Start Last Admin Trade Name Freq PRN Reason Stop Dose Admin Hydrocodone Bitart/Acetaminophen 1 tab 07/06/19 00:17 07/07/19 12:48 [place] 5-325 Mg PO 1 tab Q6H PRN Administration Pain Rated 4-6 Dextrose 12.5 gm 07/04/19 21:50 Dextrose 50% Syringe IV PUSH PRN PRN Hypoglycemia Protocol Escitalopram Oxalate 20 mg 07/06/19 14:55 07/07/19 09:48 Lexapro PO 20 mg DAILY ABBEY Administration Gabapentin 300 mg 07/06/19 14:00 07/07/19 12:50 Neurontin PO 300 mg Q8HR ABBEY Administration
[2019-07-07 17:13] LABS: Glucose Point of Care 220 (65-105)
[2019-07-07 20:25] LABS: Glucose Point of Care 220 (65-105)
[2019-07-07] MEDS: INSULIN GLARGINE (*BKC) 100 UNITS/ML 8 UNITS SUB-Q (20:25)
[2019-07-08] VITALS (15 sets, daily range): BP systolic 100–128; BP diastolic 66–69; PULSE 49–95; RESP 16–22; TEMP 35.8–36.6; O2SAT 94–100
[2019-07-08 01:39] LABS: Glucose Point of Care 171 (65-105)
[2019-07-08 05:12] LABS: Basophils Absolute Auto 0.1 K/mm3 (0.0-0.1); Basophils Percent Auto 0.3 % (0.2-1.2); Eosinophils Absolute Auto 0.1 K/mm3 (0-0.3); Eosinophils Percent Auto 0.5 % (0-4.4); Hematocrit 31.9 % (42.0-52.0); Hemoglobin 10.2 g/dL (14.0-18.0); Immature Granulocyte Absolute 0.29 K/mm3 (0.00-0.031); Immature Granulocyte Percent A 1.7 % (0-0.5); Lymphocytes Absolute Auto 1.48 K/mm3 (0.9-3.2); Lymphocytes Percent Auto 8.5 % (18.3-44.2); Mean Corpuscular Hemoglobin 28.3 pg (26-34); Mean Corpuscular Volume 88.4 fl (80-100); Mean Platelet Volume 10.1 fl (7.4-10.4); Monocytes Absolute Auto 1.2 K/mm3 (0.1-0.6); Monocytes Percent Auto 6.7 % (2.6-8.5); Neutrophils Absolute Auto 14.4 K/mm3 (1.3-6.7); Neutrophils Percent Auto 82.3 % (45.5-73.1); Platelet Count Result 359 k/mm3 (150-375); Red Blood Count 3.61 M/mm3 (4.6-6.20); Red Cell Distribution Width 14.1 % (11.5-14.5); White Blood Count 17.5 K/mm3 (4.5-10.0)
[2019-07-08 05:15] LABS: INR 2.4; Prothrombin Time 25.5 Seconds (11.1-14.7)
[2019-07-08 05:24] LABS: Albumin Level 2.7 g/dL (3.5-5.1); Blood Urea Nitrogen 12 mg/dL (9-20); Calcium 7.6 mg/dL (8.4-10.2); Carbon Dioxide 30 mmol/L (22-30); Chloride 96 mmol/L (98-107); Estimated CRCL calculation 65 ml/min; Estimated Glomerular Filt Rate > 60; Glucose 165 mg/dL (75-110); Magnesium 1.6 mg/dL (1.6-2.3); Potassium 4.2 mmol/L (3.4-5.0); Sodium 130 mmol/L (137-145)
--- NOTE | 2019-07-08 05:26 | PC.NURSE ---
Daylight Savings Time For Daylight Savings Time Ending in the Fall - Clocks are moved back. For Daylight Savings Time Beginning in the Spring - Clocks are moved ahead. For [facility], the time of change occurs at 0200 hrs. Time is taken from the server security administrator. This entry on the patient's chart recognizes the change in time reflected during documentation. Example: 2 entries for vital signs may be charted for 0200 hrs.
[2019-07-08] MEDS: GABAPENTIN 300 MG CAPSULE PO ×3 (05:59→21:12)
[2019-07-08 06:15] LABS: Glucose Point of Care 185 (65-105)
[2019-07-08] MEDS: POTASSIUM CHLORIDE 20 MEQ TABLET.ER PO (09:15)
[2019-07-08] MEDS: PANTOPRAZOLE 40 MG TABLET PO (09:15)
[2019-07-08] MEDS: ESCITALOPRAM OXALATE 10 MG TABLET 20 MG PO (09:15)
[2019-07-08 13:13] LABS: Glucose Point of Care 359 (65-105)
[2019-07-08] MEDS: INSULIN ASPART (*BKC) 100 UNITS/ML SUB-Q (13:14)
--- NOTE | 2019-07-08 15:31 | PM.PNGS ---
Progress Note: A&P Assessment and Plan (1) Abdominal abscess: Status: Acute Assessment and Plan: seems to be well drained. Continue IV Zosyn antibiotics. Will recheck CT scan tomorrow. Advance to diabetic diet. WBC trending down but slightly higher today than yesterday. (2) Supratherapeutic INR: Code(s): R79.1 - Abnormal coagulation profile Status: Acute Assessment and Plan: Protime 25.5 today. Continue to monitor. (3) CHF (congestive heart failure): Qualifiers: Heart failure chronicity: chronic Heart failure type: systolic Qualified Code(s): I50.22 - Chronic systolic (congestive) heart failure Code(s): I50.9 - Heart failure, unspecified Status: Chronic (4) COPD (chronic obstructive pulmonary disease): Qualifiers: COPD type: unspecified COPD Qualified Code(s): J44.9 - Chronic obstructive pulmonary disease, unspecified Code(s): J44.9 - Chronic obstructive pulmonary disease, unspecified Status: Chronic (5) Tobacco use: Code(s): Z72.0 - Tobacco use Status: Chronic (6) H/O mechanical aortic valve replacement: Code(s): Z95.2 - Presence of prosthetic heart valve Status: Chronic (7) Peripheral vascular disease: Code(s): I73.9 - Peripheral vascular disease, unspecified Status: Acute (8) History of right common carotid artery stent placement: Code(s): Z98.890 - Other specified postprocedural states; Z95.828 - Presence of other vascular implants and grafts Status: Acute (9) History of left common carotid artery stent placement: Code(s): Z98.890 - Other specified postprocedural states; Z95.828 - Presence of other vascular implants and grafts Status: Acute (10) CAD (coronary artery disease): Code(s): I25.10 - Atherosclerotic heart disease of [place] coronary artery without angina pectoris Status: Chronic Subjective Subjective Date/Time Seen: 07/08/19 15:31 no complaints. Tolerating solid food and having bowel movements. No fever or chills. Review of Systems Review of Systems: All systems reviewed & are unremarkable except as noted in HPI and below ( HPI) Constitutional: Constitutional: Denies chills, Denies fever(s), Reports lethargy and Denies night sweats Gastrointestinal: Gastrointestinal: Denies abdominal pain ( some soreness at pigtail drainage site), Denies bloating, Denies diarrhea, Denies nausea and Denies vomiting Exam GI: Inspection: non-distended and other ( output from pigtail 90 cc yesterday. Seems to be less today.) GI Palp: Yes Soft to palpation, Yes Tenderness to palpation present (GI) ( At pigtail catheter site only) and No Guarding due to palpation present (GI) Auscultation: normal bowel sounds Objective Data Vital Signs Vital Signs: Vital Signs - 24 hr 07/07/19 16:00 07/07/19 18:00 07/07/19 19:14 Temperature 36.4 C L 36.9 C Pulse Rate 74 75 72 Respiratory Rate 16 22 H Blood Pressure 91/58 L 101/63 Pulse Oximetry 96 95 07/07/19 20:00 07/07/19 22:00 07/07/19 23:57 Temperature 36.6 C Pulse Rate 72 98 74 Respiratory Rate 22 H 18 Blood Pressure 102/68 Pulse Oximetry 95 96 07/08/19 00:00 07/08/19 01:46 07/08/19 04:00 Temperature Pulse Rate 74 87 73 Respiratory Rate 18 16 Blood Pressure Pulse Oximetry 96 95 07/08/19 04:29 07/08/19 06:00 07/08/19 07:49 Temperature 36.1 C L 35.8 C L Pulse Rate 72 70 63 Respiratory Rate 16 20 Blood Pressure 108/66 100/67 Pulse Oximetry 95 95 07/08/19 08:00 07/08/19 10:00 07/08/19 12:00 Temperature 36.3 C L Pulse Rate 72 75 72 Respiratory Rate 20 Blood Pressure 128/68 Pulse Oximetry 99 Intake/Output Intake/Output: Intake & Output 07/05/19 07/06/19 07/07/19 07/09/19 23:59 23:59 23:59 00:59 Intake Total 1734 8268 3912 2219 Output Total 1000 1400 1165 1940 Balance 736 5354 3541 279 Meds/Results Medications: Active Medications
--- NOTE | 2019-07-08 17:12 | PM.IMPN ---
Progress Note: A&P Assessment and Plan (1) Abdominal abscess: Status: Acute Assessment and Plan: Likely a perforated appendicitis. Can not exclude cancer but CEA 1.5. The patient with severe sepsis from a large abdominal abscess. Percut drain in place and clinically improving. Output from the drain is decreasing. Abscess culture growing Strept miliieri. Continue abx. (2) Severe sepsis: Code(s): A41.9 - Sepsis, unspecified organism; R65.20 - Severe sepsis without septic shock Status: Acute Assessment and Plan: Source of sepsis is an intraabdominal abscess. Currently on IV Zosyn Day5. Blood cultures NGTD. MRSA nasal swab negative. Percut drain placed on 07/05/19 but replaced with higher gauge on 07/06/19. Abscess cx results as above. Appreciate General Surgery input. (3) Supratherapeutic INR: Code(s): R79.1 - Abnormal coagulation profile Status: Acute Assessment and Plan: PT/PTT were markedly elevated (unmeasurable). INR reversed with vitamin K and FFP. INR better at 2.4 today. Monitor daily PT/INR. Start Heparin once INR<2.0. (4) Lactic acidosis: Code(s): E87.2 - Acidosis Status: Acute Assessment and Plan: Secondary to severe sepsis from abdominal abscess. Repeat Lactic acid was normal. (5) CHF (congestive heart failure): Qualifiers: Heart failure chronicity: chronic Heart failure type: systolic Qualified Code(s): I50.22 - Chronic systolic (congestive) heart failure Code(s): I50.9 - Heart failure, unspecified Status: Chronic Assessment and Plan: Echo 05/11/19 showing LV EF 30-35%. Currently compensated but off his Lasix. +Fluid balance overall but good UOP today. Monitor Is and Os, daily weights closely. IVF stopped. Continue to monitor. (6) Atrial flutter: Qualifiers: Atrial flutter type: unspecified Qualified Code(s): I48.92 - Unspecified atrial flutter Code(s): I48.92 - Unspecified atrial flutter Status: Chronic Assessment and Plan: Patient with chronic AFlutter. Heart rate is controlled. Continue to monitor. (7) H/O mechanical aortic valve replacement: Code(s): Z95.2 - Presence of prosthetic heart valve Status: Chronic Assessment and Plan: Patient with a [facility] mechanical valve. Echo 05/11/19 shows that the aortic valve mechanical prosthesis is poorly visualized. Functional valve area 1.6 cm2. No prosthetic regurgitation. INR >19 on admission but now 2.4. Start Heparin probably tomorrow. Resume coumadin when appropriate. Would recommend Heparin drip if further surgery/procedure planned. (8) Diabetes: Qualifiers: Diabetes mellitus complication status: without complication Diabetes mellitus halfway insulin use: without exterminator termite use Diabetes mellitus type: type 2 Qualified Code(s): E11.9 - Type 2 diabetes mellitus without complications Code(s): E11.9 - Type 2 diabetes mellitus without complications Status: Chronic Assessment and Plan: A1c 8.5. Glucose reviewed on 07/08/19 and ranging anywhere from 170-180 today but then 360 at lunch. Taken off the IVF with dextrose. Toelrating his oral intake. He is not on diabetic medications at home. Currently on Lantus. Continue accuchecks with SSI coverage and hypoglycemic protocol. Will hold on changes since IVF have been stopped. (9) Hypertension: Qualifiers: Hypertension type: unspecified Qualified Code(s): I10 - Essential (primary) hypertension Code(s): I10 - Essential (primary) hypertension Status: Chronic Assessment and Plan: Patietn HoTN on admission to as low as 77/44. BP since has been more stable (except 75/51 on 07/05 but not felt to be real per RN). Takes metoprolol, lisinopril, ISMO and Lasix at home. Will resume Metoprolol today and slowly add back meds as his BP tolerates. (10) Hypokal
[2019-07-08] MEDS: MAGNESIUM OXIDE 400 MG TABLET PO (17:44)
[2019-07-08] MEDS: POTASSIUM/PHOSPHORUS/SODIUM 1.5 GM PACKET 1 PACKET PO (17:44)
[2019-07-08 18:22] LABS: Glucose Point of Care 150 (65-105)
[2019-07-08] MEDS: INSULIN GLARGINE (*BKC) 100 UNITS/ML 8 UNITS SUB-Q (21:12)
[2019-07-08 21:15] LABS: Glucose Point of Care 212 (65-105)
[2019-07-09] VITALS (20 sets, daily range): BP systolic 101–134; BP diastolic 62–78; PULSE 50–107; RESP 16–20; TEMP 35.6–36.5; O2SAT 95–100
[2019-07-09] MEDS: METOPROLOL SUCCINATE EXT REL 12.5 MG TABCR PO ×2 (02:33→13:19)
[2019-07-09 05:06] LABS: Hematocrit 32.1 % (42.0-52.0); Hemoglobin 10.4 g/dL (14.0-18.0); Mean Corpuscular HGB Conc 32.4 g/dl (32-36); Mean Corpuscular Hemoglobin 28.3 pg (26-34); Mean Corpuscular Volume 87.5 fl (80-100); Mean Platelet Volume 9.6 fl (7.4-10.4); Platelet Count Result 398 k/mm3 (150-375); Red Blood Count 3.67 M/mm3 (4.6-6.20); Red Cell Distribution Width 14.3 % (11.5-14.5); White Blood Count 17.4 K/mm3 (4.5-10.0)
[2019-07-09 05:16] LABS: INR 1.7; Prothrombin Time 19.8 Seconds (11.1-14.7)
[2019-07-09 05:19] LABS: Blood Urea Nitrogen 13 mg/dL (9-20); Calcium 8.2 mg/dL (8.4-10.2); Carbon Dioxide 33 mmol/L (22-30); Chloride 94 mmol/L (98-107); Estimated CRCL calculation 65 ml/min; Estimated Glomerular Filt Rate > 60; Glucose 130 mg/dL (75-110); Magnesium 1.7 mg/dL (1.6-2.3); Phosphorus 2.8 mg/dL (2.5-4.5); Potassium 4.3 mmol/L (3.4-5.0); Sodium 130 mmol/L (137-145)
[2019-07-09] MEDS: GABAPENTIN 300 MG CAPSULE PO ×3 (05:26→21:39)
[2019-07-09 07:37] LABS: Glucose Point of Care 125 (65-105)
[2019-07-09] MEDS: ESCITALOPRAM OXALATE 10 MG TABLET 20 MG PO (09:35)
[2019-07-09] MEDS: PANTOPRAZOLE 40 MG TABLET PO (09:36)
[2019-07-09] MEDS: MAGNESIUM OXIDE 400 MG TABLET PO (09:36)
[2019-07-09] MEDS: ROSUVASTATIN 10 MG TABLET 20 MG PO (09:37)
[2019-07-09] MEDS: ASPIRIN 81 MG CHEWABLE TABLET PO (09:37)
[2019-07-09 10:14] LABS: Partial Thromboplastin Time 47.6 SECONDS (22.3-36.8)
--- NOTE | 2019-07-09 11:47 | PM.PNGS ---
Progress Note: A&P Assessment and Plan (1) Abdominal abscess: Status: Acute Assessment and Plan: Possibly from perforated acute appendicitis. Perc. drain output continues to decrease and is minimal now. CT scan repeated today and shows near complete resolution of the right lower quadrant abscess. WBC stable today at 17,400 and he remains afebrile. Continue IV antibiotics. Abscess cultures showing growth of streptococcus milleri group in preliminary results, awaiting final. Blood cultures NGTD. Will plan to leave the percutaneous drain in place and plan for about 2 weeks of antibiotics. He would likely benefit from having a colonoscopy about 6 weeks out from this episode once he is healed due to the possibility of malignancy being the cause of this. CEA was 1.5 on this admission. (2) Supratherapeutic INR: Code(s): R79.1 - Abnormal coagulation profile Status: Acute Assessment and Plan: Protime 19.8 and INR 1.7 today. Hospitalist starting Heparin gtt. (3) CHF (congestive heart failure): Qualifiers: Heart failure chronicity: chronic Heart failure type: systolic Qualified Code(s): I50.22 - Chronic systolic (congestive) heart failure Code(s): I50.9 - Heart failure, unspecified Status: Chronic (4) COPD (chronic obstructive pulmonary disease): Qualifiers: COPD type: unspecified COPD Qualified Code(s): J44.9 - Chronic obstructive pulmonary disease, unspecified Code(s): J44.9 - Chronic obstructive pulmonary disease, unspecified Status: Chronic (5) Tobacco use: Code(s): Z72.0 - Tobacco use Status: Chronic (6) H/O mechanical aortic valve replacement: Code(s): Z95.2 - Presence of prosthetic heart valve Status: Chronic (7) Peripheral vascular disease: Code(s): I73.9 - Peripheral vascular disease, unspecified Status: Acute (8) History of right common carotid artery stent placement: Code(s): Z98.890 - Other specified postprocedural states; Z95.828 - Presence of other vascular implants and grafts Status: Acute (9) History of left common carotid artery stent placement: Code(s): Z98.890 - Other specified postprocedural states; Z95.828 - Presence of other vascular implants and grafts Status: Acute (10) CAD (coronary artery disease): Code(s): I25.10 - Atherosclerotic heart disease of [place] coronary artery without angina pectoris Status: Chronic (11) Severe sepsis: Code(s): A41.9 - Sepsis, unspecified organism; R65.20 - Severe sepsis without septic shock Status: Acute Assessment and Plan: Due to the intra-abdominal abscess. Continue IV abx and plan as mentioned above. Additional Plan Overall, notably a poor surgical candidate due to his multiple co-morbidities. Discussed plan of care with Dr. Sterling today. Subjective Subjective Date/Time Seen: 07/09/19 11:20 Patient reports: no new complaints, feels better, pain is less (RLQ) and tolerating a regular diet Interval history: Patient seen and examined. Denies any new complaints today. Reports still some mild abdominal pain where the drain is located in the RLQ but much improved from admission. Same type of soreness near the drain as yesterday. Tolerating his diet without nausea, vomiting, or bloating. Reports having a bowel movement yesterday but not yet today. Flatus today. No other complaints at this time. Review of Systems Review of Systems: All systems reviewed & are unremarkable except as noted in HPI and below Exam Const: General: comfortable and no acute distress Orientation/consciousness: patient oriented x3 GI: Inspection: non-distended and incision (Right lower quadrant pigtail draining brown-bloody material) GI Palp: Yes Soft to palpation, Yes Tenderness to palpation present (GI) (at perc. drain site in RLQ only), No Guarding due to palpation present (GI) and No Rebound tenderness present Auscultation: kevin
[2019-07-09 12:23] LABS: Glucose Point of Care 169 (65-105)
[2019-07-09] MEDS: HEPARIN SOD/D5W 100 UNITS/ML 25,000 UNITS/250 ML BAG 10 UNITS IV CONT (13:17)
[2019-07-09] MEDS: HEPARIN SODIUM 5,000 UNITS/ML VIAL 4000 UNITS IV PUSH (13:18)
--- NOTE | 2019-07-09 14:29 | PCDIET ---
Nutrition Follow-Up Complete: Nutrition Diagnosis: Inadequate oral intake related to intraabdominal abscess as evidenced by NPO/clear liquid diet x 3 days. Nutrition Goal: Patient to meet estimated nutritional needs. Goal met. Patient consuming 75-100% of most meals on diabetic, carbohydrate controlled diet. Patient reports tolerating well with no GI c/o. Denies questions re: diet at this time. Last recorded weight is 83.8 kg which is increased from last review. +I/O noted. Bowel Motility: +BM today, solid, per patient Labs Reviewed: Glu (169), Na (130) Meds Noted: Novolog, Lantus, Mag-Ox, Protonix, Zosyn Additional Notes: No pressure ulcers documented. Right abdominal drain with decreased output. Recommend continuing present diet with same goal. Nutrition Monitoring and Evaluation: Follow up every 5 days.
--- NOTE | 2019-07-09 15:00 | PM.IMPN ---
Progress Note: A&P Assessment and Plan (1) Abdominal abscess: Status: Acute Assessment and Plan: Likely a perforated appendicitis. Can not exclude cancer but CEA 1.5. The patient with severe sepsis from a large abdominal abscess. Percut drain in place and clinically improving. Output from the drain is decreasing. Abscess culture growing Strept miliieri. Repeat CT scan showing near complete resolution of the abscess. CT scan also showing possible common bile duct stones. Check RUQ US. Continue abx. (2) Severe sepsis: Code(s): A41.9 - Sepsis, unspecified organism; R65.20 - Severe sepsis without septic shock Status: Acute Assessment and Plan: Source of sepsis is an intraabdominal abscess. Currently on IV Zosyn Day5. Blood cultures NGTD. MRSA nasal swab negative. Percut drain placed on 07/05/19 but replaced with higher gauge on 07/06/19. Abscess cx results as above. Appreciate General Surgery input. (3) Supratherapeutic INR: Code(s): R79.1 - Abnormal coagulation profile Status: Acute Assessment and Plan: PT/PTT were markedly elevated (unmeasurable). INR reversed with vitamin K and FFP. INR down to 1.7. Monitor daily PT/INR. (4) Lactic acidosis: Code(s): E87.2 - Acidosis Status: Acute Assessment and Plan: Secondary to severe sepsis from abdominal abscess. Repeat Lactic acid was normal. (5) CHF (congestive heart failure): Qualifiers: Heart failure chronicity: chronic Heart failure type: systolic Qualified Code(s): I50.22 - Chronic systolic (congestive) heart failure Code(s): I50.9 - Heart failure, unspecified Status: Chronic Assessment and Plan: Echo 05/11/19 showing LV EF 30-35%. Currently compensated but off his Lasix. +Fluid balance overall but good UOP yesterday. Continue to monitor. (6) Atrial flutter: Qualifiers: Atrial flutter type: unspecified Qualified Code(s): I48.92 - Unspecified atrial flutter Code(s): I48.92 - Unspecified atrial flutter Status: Chronic Assessment and Plan: Patient with chronic AFlutter. Heart rate is controlled. Continue to monitor. (7) H/O mechanical aortic valve replacement: Code(s): Z95.2 - Presence of prosthetic heart valve Status: Chronic Assessment and Plan: Patient with a [facility] mechanical valve. Echo 05/11/19 shows that the aortic valve mechanical prosthesis is poorly visualized. Functional valve area 1.6 cm2. No prosthetic regurgitation. INR >19 on admission but now 1.7. Heparin started. Resume Coumadin when okay with General Surgery. (8) Diabetes: Qualifiers: Diabetes mellitus complication status: without complication Diabetes mellitus intermodal dispatcher insulin use: without intermodal dispatcher use Diabetes mellitus type: type 2 Qualified Code(s): E11.9 - Type 2 diabetes mellitus without complications Code(s): E11.9 - Type 2 diabetes mellitus without complications Status: Chronic Assessment and Plan: A1c 8.5. Glucose reviewed on 07/09/19 and glucose better controlled since coming off the Dextrose fluids. Tolerating oral intake. He is not on diabetic medications at home. Currently on Lantus here. Continue accuchecks with SSI coverage and hypoglycemic protocol. (9) Hypertension: Qualifiers: Hypertension type: unspecified Qualified Code(s): I10 - Essential (primary) hypertension Code(s): I10 - Essential (primary) hypertension Status: Chronic Assessment and Plan: BP reviewed on 07/09/19. Patient with HoTN on admission to as low as 77/44. BP since has been more stable (except 75/51 on 07/05 but not felt to be real per RN). Takes metoprolol, lisinopril, ISMO and Lasix at home. Metoprolol resumed. Slowly add back his other BP meds as he tolerates. (10) Hypokalemia: Code(s): E87.6 - Hypokalemia Status: Acute Asse
[2019-07-09 16:15] LABS: Glucose Point of Care 177 (65-105)
[2019-07-09 20:45] LABS: Glucose Point of Care 187 (65-105)
[2019-07-09] MEDS: INSULIN GLARGINE (*BKC) 100 UNITS/ML 8 UNITS SUB-Q (21:39)
[2019-07-09 21:57] LABS: Partial Thromboplastin Time 76.3 SECONDS (22.3-36.8)
[2019-07-10] VITALS (13 sets, daily range): BP systolic 108–131; BP diastolic 50–80; PULSE 48–74; RESP 17–22; TEMP 36–36.8; O2SAT 94–98
[2019-07-10 04:37] LABS: Basophils Absolute Auto 0.1 K/mm3 (0.0-0.1); Basophils Percent Auto 0.3 % (0.2-1.2); Eosinophils Absolute Auto 0.2 K/mm3 (0-0.3); Eosinophils Percent Auto 1.2 % (0-4.4); Hemoglobin 10.2 g/dL (14.0-18.0); Immature Granulocyte Percent A 2.7 % (0-0.5); Lymphocytes Absolute Auto 1.88 K/mm3 (0.9-3.2); Lymphocytes Percent Auto 12.9 % (18.3-44.2); Mean Corpuscular HGB Conc 31.9 g/dl (32-36); Mean Corpuscular Hemoglobin 28.1 pg (26-34); Mean Corpuscular Volume 88.2 fl (80-100); Mean Platelet Volume 9.6 fl (7.4-10.4); Monocytes Absolute Auto 1.3 K/mm3 (0.1-0.6); Monocytes Percent Auto 8.8 % (2.6-8.5); Neutrophils Absolute Auto 10.8 K/mm3 (1.3-6.7); Neutrophils Percent Auto 74.1 % (45.5-73.1); Platelet Count Result 398 k/mm3 (150-375); Red Blood Count 3.63 M/mm3 (4.6-6.20); Red Cell Distribution Width 14.3 % (11.5-14.5); White Blood Count 14.6 K/mm3 (4.5-10.0)
[2019-07-10 04:46] LABS: INR 1.4
[2019-07-10 04:47] LABS: Partial Thromboplastin Time 78.9 SECONDS (22.3-36.8)
[2019-07-10 04:52] LABS: Blood Urea Nitrogen 17 mg/dL (9-20); Calcium 8.3 mg/dL (8.4-10.2); Carbon Dioxide 36 mmol/L (22-30); Chloride 93 mmol/L (98-107); Estimated CRCL calculation 59 ml/min; Estimated Glomerular Filt Rate > 60; Glucose 141 mg/dL (75-110); Potassium 4.4 mmol/L (3.4-5.0); Sodium 131 mmol/L (137-145)
[2019-07-10] MEDS: GABAPENTIN 300 MG CAPSULE PO ×3 (05:05→21:44)
[2019-07-10 08:34] LABS: Glucose Point of Care 238 (65-105)
--- NOTE | 2019-07-10 11:24 | PM.IMPN ---
Progress Note: A&P Assessment and Plan (1) Abdominal abscess: Status: Acute Assessment and Plan: Appreciate help from general surgery. CT scan on admission with large RLQ abscess. Repeat CT scan on 07/09/2019 with diminished size of RLQ abscess since placement of percutaneous drain. Culture positive for Streptococcus milleri. Discussed with surgery today. Has been on IV Zosyn. Will discharge home on oral Augmentin to complete 2 week course when ready for discharge. Unable to discharge today due to mechanical aortic valve with subtherapeutic INR. Will however transfer to medical floor as stable. (2) Severe sepsis: Code(s): A41.9 - Sepsis, unspecified organism; R65.20 - Severe sepsis without septic shock Status: Acute Assessment and Plan: Criteria met on admission. Result of intra-abdominal abscess. Will continue IV Zosyn while here. MRSA nasal culture negative. Blood and urine cultures final and negative. Culture of intra-abdominal abscess positive for Streptococcus milleri as noted above. WBC down to 14.6 today. (3) H/O mechanical aortic valve replacement: Code(s): Z95.2 - Presence of prosthetic heart valve Status: Chronic Assessment and Plan: Patient with a [employer] [facility] mechanical valve. Echocardiogram on 05/11/19 shows that the aortic valve mechanical prosthesis is poorly visualized. Functional valve area 1.6 cm2. No prosthetic regurgitation. INR >19 on admission with warfarin held. Heparin resumed yesterday with INR down to 1.7. INR 1.4 today. Will resume warfarin at 4 mg today after clearance by surgery. Will continue heparin bridge until therapeutic. (4) Supratherapeutic INR: Code(s): R79.1 - Abnormal coagulation profile Status: Acute Assessment and Plan: PT/PTT were markedly elevated (unmeasurable). INR reversed with vitamin K and FFP. INR 1.4 today as noted above. Will continue monitor. (5) Atrial flutter: Qualifiers: Atrial flutter type: unspecified Qualified Code(s): I48.92 - Unspecified atrial flutter Code(s): I48.92 - Unspecified atrial flutter Status: Chronic Assessment and Plan: Patient with chronic atrial flutter. Telemetry reviewed on 07/10/2019 with heart rate controlled. Will continue to monitor. (6) Lactic acidosis: Code(s): E87.2 - Acidosis Status: Acute Assessment and Plan: Secondary to severe sepsis from abdominal abscess. Repeat Lactic acid was normal. (7) CHF (congestive heart failure): Qualifiers: Heart failure chronicity: chronic Heart failure type: systolic Qualified Code(s): I50.22 - Chronic systolic (congestive) heart failure Code(s): I50.9 - Heart failure, unspecified Status: Chronic Assessment and Plan: Echocardiogram 05/11/19 showing LV EF 30-35%. Currently compensated but off his Lasix. Will continue to monitor. Will continue metoprolol. Home lisinopril also still on hold. (8) Diabetes: Qualifiers: Diabetes mellitus complication status: without complication Diabetes mellitus usp insulin use: without terminal press operator use Diabetes mellitus type: type 2 Qualified Code(s): E11.9 - Type 2 diabetes mellitus without complications Code(s): E11.9 - Type 2 diabetes mellitus without complications Status: Chronic Assessment and Plan: HgbA1C 8.5. Glucose reviewed on 07/10/2019 with acceptable control. Not on medication at home. Remains on Lantus here. Will continue to monitor. Sliding scale insulin available as needed. (9) Hypertension: Qualifiers: Hypertension type: unspecified Qualified Code(s): I10 - Essential (primary) hypertension Code(s): I10 - Essential (primary) hypertension Status: Chronic Assessment and Plan: Blood pressure reviewed on 07/10/2019. Blood pressure low normal stable. Will continue to monitor on metoprolol. Other home medicatio
[2019-07-10] MEDS: ROSUVASTATIN 10 MG TABLET 20 MG PO (11:35)
[2019-07-10] MEDS: METOPROLOL SUCCINATE EXT REL 12.5 MG TABCR PO (11:35)
[2019-07-10] MEDS: PANTOPRAZOLE 40 MG TABLET PO (11:35)
[2019-07-10] MEDS: ASPIRIN 81 MG CHEWABLE TABLET PO (11:36)
[2019-07-10] MEDS: MAGNESIUM OXIDE 400 MG TABLET PO (11:36)
[2019-07-10] MEDS: ESCITALOPRAM OXALATE 10 MG TABLET 20 MG PO (11:36)
--- NOTE | 2019-07-10 11:44 | PM.PNGS ---
Progress Note: A&P Assessment and Plan (1) Abdominal abscess: Status: Acute Assessment and Plan: Possibly from perforated acute appendicitis. Perc. drain output continues to decrease and is minimal now. CT scan repeated yesterday and shows near complete resolution of the right lower quadrant abscess. WBC down to 14,000 and he remains afebrile. Abscess cultures showing growth of streptococcus milleri group. Blood cultures NGTD. Day 6 of IV Zosyn. He continues to tolerate a diet and his bowels are moving. Okay from a surgical standpoint to discharge the patient. Leave the percutaneous drain in place on discharge and follow-up with Dr. Sterling in 1 week in our office. Okay to switch to oral antibiotics on discharge for a total of a 2 week course. He would likely benefit from having a colonoscopy about 6 weeks out from this episode once he is healed due to the possibility of malignancy being the cause of this. This can be discussed and scheduled as an outpatient. (2) Supratherapeutic INR: Code(s): R79.1 - Abnormal coagulation profile Status: Acute Assessment and Plan: Resolved. Okay from a surgical standpoint to restart the patient's warfarin and Plavix. (3) CHF (congestive heart failure): Qualifiers: Heart failure chronicity: chronic Heart failure type: systolic Qualified Code(s): I50.22 - Chronic systolic (congestive) heart failure Code(s): I50.9 - Heart failure, unspecified Status: Chronic (4) COPD (chronic obstructive pulmonary disease): Qualifiers: COPD type: unspecified COPD Qualified Code(s): J44.9 - Chronic obstructive pulmonary disease, unspecified Code(s): J44.9 - Chronic obstructive pulmonary disease, unspecified Status: Chronic (5) Tobacco use: Code(s): Z72.0 - Tobacco use Status: Chronic (6) H/O mechanical aortic valve replacement: Code(s): Z95.2 - Presence of prosthetic heart valve Status: Chronic (7) Peripheral vascular disease: Code(s): I73.9 - Peripheral vascular disease, unspecified Status: Acute (8) History of right common carotid artery stent placement: Code(s): Z98.890 - Other specified postprocedural states; Z95.828 - Presence of other vascular implants and grafts Status: Acute (9) History of left common carotid artery stent placement: Code(s): Z98.890 - Other specified postprocedural states; Z95.828 - Presence of other vascular implants and grafts Status: Acute (10) CAD (coronary artery disease): Qualifiers: Coronary Disease-Associated Artery/Lesion type: [place] artery [place] vs. transplanted heart: [place] heart Associated angina: without angina Qualified Code(s): I25.10 - Atherosclerotic heart disease of [place] coronary artery without angina pectoris Code(s): I25.10 - Atherosclerotic heart disease of [place] coronary artery without angina pectoris Status: Chronic (11) Severe sepsis: Code(s): A41.9 - Sepsis, unspecified organism; R65.20 - Severe sepsis without septic shock Status: Acute (12) Cholelithiasis with choledocholithiasis: Code(s): K80.70 - Calculus of gallbladder and bile duct without cholecystitis without obstruction Status: Acute Assessment and Plan: Noted incidentally on CT yesterday and on ultrasound today. Patient is completely asymptomatic. No biliary colic. Again a poor surgical candidate due to multiple co-morbidities and his overall health and acute infection. I checked his LFTs today, which were normal. No indication for urgent surgery at this time, but we will be following him on an outpatient basis and would be able to discuss cholecystectomy further once he has recovered from this intra-abdominal abscess. I discussed with the patient that if he develops upper abdominal pain, nausea, vomiting, or fevers, then to present to the ED. Additional Plan Overall, notably a poor surgical candidate due to his
[2019-07-10 11:55] LABS: Alanine Aminotransferase 24 U/L (4-50); Albumin Level 3.5 g/dL (3.5-5.1); Alkaline Phosphatase 93 U/L (38-126); Aspartate Amino Transferase 25 U/L (17-59); Bilirubin,Total 0.5 mg/dL (0.2-1.3)
[2019-07-10 13:17] LABS: Glucose Point of Care 200 (65-105)
[2019-07-10 17:10] LABS: Glucose Point of Care 178 (65-105)
[2019-07-10] MEDS: HEPARIN SOD/D5W 100 UNITS/ML 25,000 UNITS/250 ML BAG 10 UNITS IV CONT (17:52)
[2019-07-10] MEDS: WARFARIN (*PBKC) 4 MG TABLET PO (17:53)
[2019-07-10] MEDS: INSULIN GLARGINE (*BKC) 100 UNITS/ML 8 UNITS SUB-Q (21:44)
[2019-07-10 21:58] LABS: Glucose Point of Care 194 (65-105)
[2019-07-11 05:34] LABS: Hematocrit 31.1 % (42.0-52.0); Hemoglobin 9.9 g/dL (14.0-18.0); Mean Corpuscular HGB Conc 31.8 g/dl (32-36); Mean Corpuscular Hemoglobin 28.1 pg (26-34); Mean Corpuscular Volume 88.4 fl (80-100); Mean Platelet Volume 9.5 fl (7.4-10.4); Platelet Count Result 422 k/mm3 (150-375); Red Blood Count 3.52 M/mm3 (4.6-6.20); Red Cell Distribution Width 14.6 % (11.5-14.5); White Blood Count 10.5 K/mm3 (4.5-10.0)
[2019-07-11] MEDS: GABAPENTIN 300 MG CAPSULE PO ×3 (05:42→21:56)
[2019-07-11 05:44] LABS: INR 1.1; Prothrombin Time 14.2 Seconds (11.1-14.7)
[2019-07-11 05:46] LABS: Partial Thromboplastin Time 62.3 SECONDS (22.3-36.8)
[2019-07-11 06:00] VITALS: BP 110/55; PULSE 56; RESP 18; TEMP 36; O2SAT 97
[2019-07-11 06:04] LABS: Blood Urea Nitrogen 19 mg/dL (9-20); Calcium 8.4 mg/dL (8.4-10.2); Carbon Dioxide 34 mmol/L (22-30); Chloride 95 mmol/L (98-107); Estimated CRCL calculation 59 ml/min; Estimated Glomerular Filt Rate > 60; Glucose 166 mg/dL (75-110); Potassium 4.2 mmol/L (3.4-5.0); Sodium 131 mmol/L (137-145)
[2019-07-11] MEDS: HEPARIN SODIUM 5,000 UNITS/ML VIAL 3500 UNITS IV PUSH ×2 (07:31→15:02)
[2019-07-11] MEDS: ROSUVASTATIN 10 MG TABLET 20 MG PO (09:26)
[2019-07-11] MEDS: MAGNESIUM OXIDE 400 MG TABLET PO (09:27)
[2019-07-11] MEDS: ESCITALOPRAM OXALATE 10 MG TABLET 20 MG PO (09:27)
[2019-07-11] MEDS: PANTOPRAZOLE 40 MG TABLET PO (09:27)
[2019-07-11] MEDS: ASPIRIN 81 MG CHEWABLE TABLET PO (09:27)
[2019-07-11] MEDS: METOPROLOL SUCCINATE EXT REL 12.5 MG TABCR PO (09:27)
[2019-07-11 09:31] LABS: Glucose Point of Care 119 (65-105)
[2019-07-11 10:00] VITALS: BP 91/62; PULSE 67; RESP 16; TEMP 36.4; O2SAT 92
[2019-07-11 13:43] LABS: Partial Thromboplastin Time 69.3 SECONDS (22.3-36.8)
[2019-07-11 14:00] VITALS: BP 121/74; PULSE 57; RESP 16; TEMP 36.6; O2SAT 98
[2019-07-11 14:10] LABS: Glucose Point of Care 165 (65-105)
--- NOTE | 2019-07-11 15:56 | PM.IMPN ---
Progress Note: A&P Assessment and Plan (1) Abdominal abscess: Status: Acute Assessment and Plan: Appreciate help from general surgery. CT scan on admission with large RLQ abscess. Repeat CT scan on 07/09/2019 with diminished size of RLQ abscess since placement of percutaneous drain. Culture positive for Streptococcus milleri. Discussed with surgery on 07/10/2019. Continue IV Zosyn while here but plan to transition to oral Augmentin to complete a 2 week course when ready for discharge. Not yet ready to discharge due to subtherapeutic INR. Will continue to monitor. (2) Severe sepsis: Code(s): A41.9 - Sepsis, unspecified organism; R65.20 - Severe sepsis without septic shock Status: Acute Assessment and Plan: Criteria met on admission. Result of intra-abdominal abscess. Will continue IV Zosyn while here as noted above. MRSA nasal culture negative. Blood and urine cultures final and negative. Culture of intra-abdominal abscess positive for Streptococcus milleri as noted above. WBC down to 10.5 today. (3) H/O mechanical aortic valve replacement: Code(s): Z95.2 - Presence of prosthetic heart valve Status: Chronic Assessment and Plan: Patient with a [facility] mechanical valve. Echocardiogram on 05/11/19 shows that the aortic valve mechanical prosthesis is poorly visualized. Functional valve area 1.6 cm2. No prosthetic regurgitation. INR >19 on admission with warfarin held. Heparin resumed on 07/09/2019 with INR down to 1.7. Warfarin resumed at 4 mg on 07/10/2019. INR lower again today at 1.1. Will increase warfarin. Continue heparin bridge until INR therapeutic. Home when INR therapeutic. (4) Supratherapeutic INR: Code(s): R79.1 - Abnormal coagulation profile Status: Acute Assessment and Plan: PT/PTT were markedly elevated (unmeasurable). INR reversed with vitamin K and FFP. INR 1.1 today as noted above. Will continue monitor. (5) Atrial flutter: Qualifiers: Atrial flutter type: unspecified Qualified Code(s): I48.92 - Unspecified atrial flutter Code(s): I48.92 - Unspecified atrial flutter Status: Chronic Assessment and Plan: Patient with chronic atrial flutter. Clinically stable. Will monitor. (6) Lactic acidosis: Code(s): E87.2 - Acidosis Status: Acute Assessment and Plan: Secondary to severe sepsis from abdominal abscess. Repeat Lactic acid was normal. (7) CHF (congestive heart failure): Qualifiers: Heart failure chronicity: chronic Heart failure type: systolic Qualified Code(s): I50.22 - Chronic systolic (congestive) heart failure Code(s): I50.9 - Heart failure, unspecified Status: Chronic Assessment and Plan: Echocardiogram 05/11/19 showing LV EF 30-35%. Remains compensated but off his Lasix. Will continue to monitor. Will continue metoprolol. Home lisinopril also still on hold. (8) Diabetes: Qualifiers: Diabetes mellitus complication status: without complication Diabetes mellitus prison insulin use: without doughnut dough mixer use Diabetes mellitus type: type 2 Qualified Code(s): E11.9 - Type 2 diabetes mellitus without complications Code(s): E11.9 - Type 2 diabetes mellitus without complications Status: Chronic Assessment and Plan: HgbA1C 8.5. Glucose reviewed on 07/11/2019 with continue acceptable control. Not on medication at home. Remains on Lantus here. Will continue to monitor. Sliding scale insulin available as needed. (9) Hypertension: Qualifiers: Hypertension type: unspecified Qualified Code(s): I10 - Essential (primary) hypertension Code(s): I10 - Essential (primary) hypertension Status: Chronic Assessment and Plan: Blood pressure reviewed on 07/11/2019. Blood pressure remaining lower end of normal but stable. Will continue to monitor on metoprolol. Other home medi
[2019-07-11] MEDS: HEPARIN SOD/D5W 100 UNITS/ML 25,000 UNITS/250 ML BAG 14 UNITS IV CONT (16:57)
[2019-07-11] MEDS: WARFARIN (*PBKC) 5 MG TABLET PO (17:00)
[2019-07-11 18:00] VITALS: BP 102/52; PULSE 53; RESP 16; TEMP 36.6; O2SAT 96
[2019-07-11 18:20] LABS: Glucose Point of Care 208 (65-105)
[2019-07-11] MEDS: INSULIN ASPART (*BKC) 100 UNITS/ML SUB-Q (18:45)
[2019-07-11] MEDS: INSULIN GLARGINE (*BKC) 100 UNITS/ML 8 UNITS SUB-Q (20:42)
[2019-07-11 21:21] LABS: Partial Thromboplastin Time 130.2 SECONDS (22.3-36.8)
[2019-07-11 22:01] LABS: Glucose Point of Care 207 (65-105)
[2019-07-11 22:23] VITALS: BP 98/51; PULSE 62; RESP 16; TEMP 36.6; O2SAT 96
[2019-07-12] VITALS (7 sets, daily range): BP systolic 93–131; BP diastolic 53–79; PULSE 16–74; RESP 16–68; TEMP 35.6–36.4; O2SAT 92–96
[2019-07-12 04:35] LABS: Hematocrit 32.3 % (42.0-52.0); Hemoglobin 10.1 g/dL (14.0-18.0); Mean Corpuscular HGB Conc 31.3 g/dl (32-36); Mean Corpuscular Hemoglobin 27.8 pg (26-34); Mean Platelet Volume 9.1 fl (7.4-10.4); Platelet Count Result 448 k/mm3 (150-375); Red Blood Count 3.63 M/mm3 (4.6-6.20); Red Cell Distribution Width 14.9 % (11.5-14.5); White Blood Count 11.7 K/mm3 (4.5-10.0)
[2019-07-12 04:45] LABS: INR 1.3; Prothrombin Time 15.4 Seconds (11.1-14.7)
[2019-07-12 04:47] LABS: Blood Urea Nitrogen 17 mg/dL (9-20); Calcium 8.5 mg/dL (8.4-10.2); Carbon Dioxide 34 mmol/L (22-30); Chloride 96 mmol/L (98-107); Estimated CRCL calculation 59 ml/min; Estimated Glomerular Filt Rate > 60; Glucose 146 mg/dL (75-110); Partial Thromboplastin Time 119.9 SECONDS (22.3-36.8); Potassium 4.7 mmol/L (3.4-5.0); Sodium 132 mmol/L (137-145)
[2019-07-12] MEDS: GABAPENTIN 300 MG CAPSULE PO ×3 (06:07→21:01)
[2019-07-12] MEDS: ROSUVASTATIN 10 MG TABLET 20 MG PO (08:12)
[2019-07-12] MEDS: METOPROLOL SUCCINATE EXT REL 12.5 MG TABCR PO (08:12)
[2019-07-12] MEDS: ESCITALOPRAM OXALATE 10 MG TABLET 20 MG PO (08:12)
[2019-07-12] MEDS: MAGNESIUM OXIDE 400 MG TABLET PO (08:12)
[2019-07-12] MEDS: PANTOPRAZOLE 40 MG TABLET PO (08:12)
[2019-07-12] MEDS: ASPIRIN 81 MG CHEWABLE TABLET PO (08:12)
[2019-07-12 08:21] LABS: Glucose Point of Care 132 (65-105)
--- NOTE | 2019-07-12 11:01 | PCDIET ---
Nutrition Follow-Up Complete: Inadequate oral intake related to intraabdominal abcess POD #1 s/p CT guided periappendiceal abscess drainage as evidenced by NPO/clear liquid diet x 3 days. Patient to meet estimated nutritional needs. Goal met. Pt consuming 100% of all meals since 07/09 Nutrition recommendation: Recommend continuation of DM CHO consistent diet to establish blood glu control and help pt meet estimated nutrient needs. Last recorded weight is 81.4 kg. Has increased from 74.3kg at admin. Bowel Motility: +BM 07/11 Labs Reviewed: Na(132), K(4.7), BUN(17), Cr(1.10), Glu(146), Ca(8.5), PT(15.4), RBC (3.63) Meds Noted: Coumadin, Lantus, Staples, Mg-Ox, crestor Additional Notes: Pt tolerating diet well and appetite remains good. Had biscuits and gravy, stubbs, sausage, cream of wheat and fruit cup this morning. States no N/V but some pain from abscess. He had just been given pain medication but rated pain at about 6-7. Will monitor intake and labs. Follow up every 5 days.
[2019-07-12 11:41] LABS: Partial Thromboplastin Time 65.5 SECONDS (22.3-36.8)
--- NOTE | 2019-07-12 11:50 | PCNSR ---
On 07/12/19, the student, [An Callahan ], provided care and completed [facility] documentation on this patient. I have reviewed the student's documentation and agree with the findings.
[2019-07-12] MEDS: HEPARIN SODIUM 5,000 UNITS/ML VIAL 3500 UNITS IV PUSH (11:54)
[2019-07-12 13:19] LABS: Glucose Point of Care 178 (65-105)
--- NOTE | 2019-07-12 13:26 | PM.IMPN ---
Progress Note: A&P Assessment and Plan (1) H/O mechanical aortic valve replacement: Code(s): Z95.2 - Presence of prosthetic heart valve Status: Chronic Assessment and Plan: Patient with a [facility] mechanical valve. Echocardiogram on 05/11/19 shows that the aortic valve mechanical prosthesis is poorly visualized. Functional valve area 1.6 cm2. No prosthetic regurgitation. INR >19 on admission with warfarin held. Heparin resumed on 07/09/2019 with INR down to 1.7. Warfarin resumed on 07/10/2019. INR still low at 1.3 today. Will increase warfarin to 6 mg daily. Continue heparin bridge until INR therapeutic. Home when INR therapeutic with range needed to be 2.5-3.5. (2) Abdominal abscess: Status: Acute Assessment and Plan: Appreciate help from general surgery. CT scan on admission with large RLQ abscess. Repeat CT scan on 07/09/2019 with diminished size of RLQ abscess since placement of percutaneous drain. Culture positive for Streptococcus milleri. Discussed with surgery on 07/10/2019. Continue IV Zosyn while here but plan to transition to oral Augmentin to complete a 2 week course when ready for discharge. Steadily improving. Home when INR therapeutic as noted above. (3) Severe sepsis: Code(s): A41.9 - Sepsis, unspecified organism; R65.20 - Severe sepsis without septic shock Status: Acute Assessment and Plan: Criteria met on admission. Result of intra-abdominal abscess. Will continue IV Zosyn while here as noted above. MRSA nasal culture negative. Blood and urine cultures final and negative. Culture of intra-abdominal abscess positive for Streptococcus milleri as noted above. WBC 11.7 today. (4) Supratherapeutic INR: Code(s): R79.1 - Abnormal coagulation profile Status: Acute Assessment and Plan: PT/PTT were markedly elevated (unmeasurable). INR reversed with vitamin K and FFP. INR 1.3 as noted above. (5) Atrial flutter: Qualifiers: Atrial flutter type: unspecified Qualified Code(s): I48.92 - Unspecified atrial flutter Code(s): I48.92 - Unspecified atrial flutter Status: Chronic Assessment and Plan: Patient with chronic atrial flutter. Clinically remains stable. Will monitor. (6) Lactic acidosis: Code(s): E87.2 - Acidosis Status: Acute Assessment and Plan: Secondary to severe sepsis from abdominal abscess. Repeat Lactic acid was normal. (7) CHF (congestive heart failure): Qualifiers: Heart failure chronicity: chronic Heart failure type: systolic Qualified Code(s): I50.22 - Chronic systolic (congestive) heart failure Code(s): I50.9 - Heart failure, unspecified Status: Chronic Assessment and Plan: Echocardiogram 05/11/19 showing LV EF 30-35%. Still off Lasix but stable. Continue metoprolol. Home lisinopril also still on hold but will resume with blood pressure improved. Will monitor. (8) Diabetes: Qualifiers: Diabetes mellitus complication status: without complication Diabetes mellitus residential insulin use: without watermelon inspector use Diabetes mellitus type: type 2 Qualified Code(s): E11.9 - Type 2 diabetes mellitus without complications Code(s): E11.9 - Type 2 diabetes mellitus without complications Status: Chronic Assessment and Plan: HgbA1C 8.5. Glucose reviewed on 07/12/2019 and remains controlled. Not on medication at home. Remains on Lantus here. Will continue to monitor. Sliding scale insulin available as needed. (9) Hypertension: Qualifiers: Hypertension type: unspecified Qualified Code(s): I10 - Essential (primary) hypertension Code(s): I10 - Essential (primary) hypertension Status: Chronic Assessment and Plan: Blood pressure reviewed on 07/12/2019. Blood pressure still in normal range but increasing. Will continue metoprolol. Resuming lisinopril as noted above. Ulises
[2019-07-12] MEDS: HEPARIN SOD/D5W 100 UNITS/ML 25,000 UNITS/250 ML BAG 12 UNITS IV CONT (16:21)
[2019-07-12] MEDS: WARFARIN (*PBKC) 4 MG TABLET PO (17:41)
[2019-07-12] MEDS: WARFARIN (*PBKC) 3 MG TABLET PO (17:41)
[2019-07-12 17:51] LABS: Glucose Point of Care 187 (65-105)
[2019-07-12 18:24] LABS: Partial Thromboplastin Time 128.4 SECONDS (22.3-36.8)
[2019-07-12] MEDS: INSULIN GLARGINE (*BKC) 100 UNITS/ML 8 UNITS SUB-Q (20:57)
[2019-07-12 22:40] LABS: Glucose Point of Care 207 (65-105)
[2019-07-13] VITALS (7 sets, daily range): BP systolic 92–128; BP diastolic 46–76; PULSE 65–74; RESP 16–18; TEMP 36–36.6; O2SAT 93–98
[2019-07-13 00:46] LABS: Partial Thromboplastin Time 149.4 SECONDS (22.3-36.8)
--- NOTE | 2019-07-13 00:58 | PC.NURSE ---
0055 PTT 149.4, HEP GTT TURNED OFF FOR 1 HR THE WILL DECREASE RATE
[2019-07-13] MEDS: GABAPENTIN 300 MG CAPSULE PO ×3 (05:48→20:45)
[2019-07-13 07:30] LABS: Glucose Point of Care 110 (65-105)
[2019-07-13 08:10] LABS: Hematocrit 36.7 % (42.0-52.0); Hemoglobin 11.2 g/dL (14.0-18.0); Mean Corpuscular HGB Conc 30.5 g/dl (32-36); Mean Corpuscular Hemoglobin 27.7 pg (26-34); Mean Corpuscular Volume 90.6 fl (80-100); Mean Platelet Volume 9.1 fl (7.4-10.4); Platelet Count Result 477 k/mm3 (150-375); Red Blood Count 4.05 M/mm3 (4.6-6.20); Red Cell Distribution Width 15.2 % (11.5-14.5); White Blood Count 9.6 K/mm3 (4.5-10.0)
[2019-07-13 08:21] LABS: INR 1.3; Prothrombin Time 16.1 Seconds (11.1-14.7)
[2019-07-13 08:22] LABS: Partial Thromboplastin Time 45.4 SECONDS (22.3-36.8)
[2019-07-13 08:23] LABS: Blood Urea Nitrogen 15 mg/dL (9-20); Calcium 8.7 mg/dL (8.4-10.2); Carbon Dioxide 35 mmol/L (22-30); Chloride 96 mmol/L (98-107); Estimated CRCL calculation 65 ml/min; Estimated Glomerular Filt Rate > 60; Glucose 130 mg/dL (75-110); Potassium 4.9 mmol/L (3.4-5.0); Sodium 134 mmol/L (137-145)
[2019-07-13] MEDS: ASPIRIN 81 MG CHEWABLE TABLET PO (08:38)
[2019-07-13] MEDS: ESCITALOPRAM OXALATE 10 MG TABLET 20 MG PO (08:38)
[2019-07-13] MEDS: ROSUVASTATIN 10 MG TABLET 20 MG PO (08:38)
[2019-07-13] MEDS: PANTOPRAZOLE 40 MG TABLET PO (08:38)
[2019-07-13] MEDS: METOPROLOL SUCCINATE EXT REL 12.5 MG TABCR PO (08:38)
[2019-07-13] MEDS: MAGNESIUM OXIDE 400 MG TABLET PO (08:38)
[2019-07-13] MEDS: lisinopriL 5 MG TABLET PO (08:38)
[2019-07-13] MEDS: HEPARIN SODIUM 5,000 UNITS/ML VIAL 4000 UNITS IV PUSH (08:40)
[2019-07-13 12:04] LABS: Glucose Point of Care 153 (65-105)
--- NOTE | 2019-07-13 12:53 | PM.IMPN ---
Progress Note: A&P Assessment and Plan (1) H/O mechanical aortic valve replacement: Code(s): Z95.2 - Presence of prosthetic heart valve Status: Chronic Assessment and Plan: No new issues. Patient with a [employer] [facility] mechanical valve. Echocardiogram on 05/11/19 shows that the aortic valve mechanical prosthesis is poorly visualized. Functional valve area 1.6 cm2. No prosthetic regurgitation. INR >19 on admission with warfarin held and reversal with vitamin K and FFP given. Heparin resumed on 07/09/2019 with INR down to 1.7. Warfarin resumed on 07/10/2019. INR remains low and unchanged at 1.3 today. Will increase warfarin to 10 mg daily. Continue heparin bridge until INR therapeutic. Home when INR therapeutic with range needed to be 2.5-3.5. Will not be able to discharge until INR therapeutic. (2) Abdominal abscess: Status: Acute Assessment and Plan: Appreciate help from general surgery. CT scan on admission with large RLQ abscess. Repeat CT scan on 07/09/2019 with diminished size of RLQ abscess since placement of percutaneous drain. Culture positive for Streptococcus milleri. Discussed with surgery on 07/10/2019. Continue IV Zosyn while here but plan to transition to oral Augmentin to complete a 2 week course when ready for discharge. Dressing around drain redone today. Will monitor for any concerns of leakage. (3) Severe sepsis: Code(s): A41.9 - Sepsis, unspecified organism; R65.20 - Severe sepsis without septic shock Status: Acute Assessment and Plan: Criteria met on admission. Result of intra-abdominal abscess. Will continue IV Zosyn while here as noted above. MRSA nasal culture negative. Blood and urine cultures final and negative. Culture of intra-abdominal abscess positive for Streptococcus milleri as noted above. WBC normal at 9.6. (4) Supratherapeutic INR: Code(s): R79.1 - Abnormal coagulation profile Status: Acute Assessment and Plan: PT/PTT were markedly elevated (unmeasurable). INR reversed with vitamin K and FFP. INR still low at 1.3 as noted above. (5) Atrial flutter: Qualifiers: Atrial flutter type: unspecified Qualified Code(s): I48.92 - Unspecified atrial flutter Code(s): I48.92 - Unspecified atrial flutter Status: Chronic Assessment and Plan: Patient with chronic atrial flutter. Remains stable. Will monitor. (6) CHF (congestive heart failure): Qualifiers: Heart failure chronicity: chronic Heart failure type: systolic Qualified Code(s): I50.22 - Chronic systolic (congestive) heart failure Code(s): I50.9 - Heart failure, unspecified Status: Chronic Assessment and Plan: Echocardiogram 05/11/19 showing LV EF 30-35%. Stable on metoprolol and lisinopril. Lasix remains on hold. Will monitor. (7) Diabetes: Qualifiers: Diabetes mellitus complication status: without complication Diabetes mellitus long-term insulin use: without long-term use Diabetes mellitus type: type 2 Qualified Code(s): E11.9 - Type 2 diabetes mellitus without complications Code(s): E11.9 - Type 2 diabetes mellitus without complications Status: Chronic Assessment and Plan: HgbA1C 8.5. Glucose reviewed on 07/13/2019. Remains well controlled. Not on medication at home. Continue Lantus here. Will continue to monitor. Sliding scale insulin available as needed. (8) Hypertension: Qualifiers: Hypertension type: unspecified Qualified Code(s): I10 - Essential (primary) hypertension Code(s): I10 - Essential (primary) hypertension Status: Chronic Assessment and Plan: Blood pressure reviewed on 07/13/2019. Blood pressure low normal but stable. Will continue metoprolol and lisinopril. Will continue to monitor. (9) Hypokalemia: Code(s): E87.6 - Hypokalemia Status: Resolved Assessment and Plan: Potassium 4.9 today.
[2019-07-13 15:03] LABS: Partial Thromboplastin Time 89.1 SECONDS (22.3-36.8)
[2019-07-13] MEDS: WARFARIN (*PBKC) 10 MG TABLET PO (17:16)
[2019-07-13] MEDS: HEPARIN SOD/D5W 100 UNITS/ML 25,000 UNITS/250 ML BAG 10 UNITS IV CONT (17:16)
[2019-07-13 17:23] LABS: Glucose Point of Care 191 (65-105)
[2019-07-13] MEDS: INSULIN GLARGINE (*BKC) 100 UNITS/ML 8 UNITS SUB-Q (20:48)
[2019-07-13 20:54] LABS: Glucose Point of Care 204 (65-105)
[2019-07-14] VITALS (7 sets, daily range): BP systolic 93–126; BP diastolic 54–72; PULSE 53–75; RESP 16–18; TEMP 36.3–36.6; O2SAT 92–99
[2019-07-14 05:46] LABS: INR 1.8; Prothrombin Time 20.4 Seconds (11.1-14.7)
[2019-07-14 05:49] LABS: Partial Thromboplastin Time 113.7 SECONDS (22.3-36.8)
[2019-07-14 05:56] LABS: Blood Urea Nitrogen 18 mg/dL (9-20); Calcium 8.7 mg/dL (8.4-10.2); Carbon Dioxide 36 mmol/L (22-30); Chloride 98 mmol/L (98-107); Estimated CRCL calculation 55 ml/min; Estimated Glomerular Filt Rate > 60; Glucose 145 mg/dL (75-110); Potassium 4.8 mmol/L (3.4-5.0); Sodium 134 mmol/L (137-145)
[2019-07-14] MEDS: GABAPENTIN 300 MG CAPSULE PO ×3 (06:02→20:22)
[2019-07-14 07:08] LABS: Glucose Point of Care 117 (65-105)
[2019-07-14] MEDS: lisinopriL 5 MG TABLET PO (08:01)
[2019-07-14] MEDS: MAGNESIUM OXIDE 400 MG TABLET PO (08:01)
[2019-07-14] MEDS: PANTOPRAZOLE 40 MG TABLET PO (08:01)
[2019-07-14] MEDS: ASPIRIN 81 MG CHEWABLE TABLET PO (08:01)
[2019-07-14] MEDS: ROSUVASTATIN 10 MG TABLET 20 MG PO (08:01)
[2019-07-14] MEDS: METOPROLOL SUCCINATE EXT REL 12.5 MG TABCR PO (08:02)
[2019-07-14] MEDS: ESCITALOPRAM OXALATE 10 MG TABLET 20 MG PO (08:02)
[2019-07-14 12:04] LABS: Glucose Point of Care 109 (65-105)
--- NOTE | 2019-07-14 12:09 | PM.IMPN ---
Progress Note: A&P Assessment and Plan (1) H/O mechanical aortic valve replacement: Code(s): Z95.2 - Presence of prosthetic heart valve Status: Chronic Assessment and Plan: No new issues. Patient with a [employer] mechanical valve. Echocardiogram on 05/11/19 shows that the aortic valve mechanical prosthesis is poorly visualized. Functional valve area 1.6 cm2. No prosthetic regurgitation. INR >19 on admission with warfarin held and reversal with vitamin K and FFP given. Heparin resumed on 07/09/2019 with INR down to 1.7. Warfarin resumed on 07/10/2019. INR still low but now up to 1.8 today. Continue warfarin at 10 mg daily with heparin bridge. Will need to continue heparin bridge until INR therapeutic. Home when INR therapeutic with range needed to be 2.5-3.5. Will not be able to discharge until INR therapeutic. Hopeful discharge soon. (2) Abdominal abscess: Status: Acute Assessment and Plan: Appreciate help from general surgery. CT scan on admission with large RLQ abscess. Repeat CT scan on 07/09/2019 with diminished size of RLQ abscess since placement of percutaneous drain. Culture positive for Streptococcus milleri. Discussed with surgery on 07/10/2019. Continue IV Zosyn while here but plan to transition to oral Augmentin to complete a 2 week course when ready for discharge. Currently stable. Will monitor. (3) Severe sepsis: Code(s): A41.9 - Sepsis, unspecified organism; R65.20 - Severe sepsis without septic shock Status: Acute Assessment and Plan: Criteria met on admission. Result of intra-abdominal abscess. Will continue IV Zosyn while here as noted above. MRSA nasal culture negative. Blood and urine cultures final and negative. Culture of intra-abdominal abscess positive for Streptococcus milleri as noted above. WBC normal at 9.6 on last check. (4) Supratherapeutic INR: Code(s): R79.1 - Abnormal coagulation profile Status: Acute Assessment and Plan: PT/PTT were markedly elevated (unmeasurable). INR reversed with vitamin K and FFP. INR up to 1.8 as noted above. (5) Atrial flutter: Qualifiers: Atrial flutter type: unspecified Qualified Code(s): I48.92 - Unspecified atrial flutter Code(s): I48.92 - Unspecified atrial flutter Status: Chronic Assessment and Plan: Patient with chronic atrial flutter. Remains stable. Will monitor. (6) CHF (congestive heart failure): Qualifiers: Heart failure chronicity: chronic Heart failure type: systolic Qualified Code(s): I50.22 - Chronic systolic (congestive) heart failure Code(s): I50.9 - Heart failure, unspecified Status: Chronic Assessment and Plan: Echocardiogram 05/11/19 showing LV EF 30-35%. Stable on metoprolol and lisinopril. Continue to hold Lasix. Will monitor. (7) Diabetes: Qualifiers: Diabetes mellitus complication status: without complication Diabetes mellitus meterman insulin use: without long-term use Diabetes mellitus type: type 2 Qualified Code(s): E11.9 - Type 2 diabetes mellitus without complications Code(s): E11.9 - Type 2 diabetes mellitus without complications Status: Chronic Assessment and Plan: HgbA1C 8.5. Glucose reviewed on 07/14/2019. Remains on Lantus here with glucose well controlled. Not on medication at home. Sliding scale insulin available as needed. Will monitor. (8) Hypertension: Qualifiers: Hypertension type: unspecified Qualified Code(s): I10 - Essential (primary) hypertension Code(s): I10 - Essential (primary) hypertension Status: Chronic Assessment and Plan: Blood pressure reviewed on 07/14/2019. Blood pressure remains low normal but stable. Will continue metoprolol and lisinopril. Will continue to monitor. (9) Hypokalemia: Code(s): E87.6 - Hypokalemia Status: Resolved Assessment and Plan: Potassium
[2019-07-14 13:14] LABS: Partial Thromboplastin Time 71.6 SECONDS (22.3-36.8)
[2019-07-14 17:00] LABS: Glucose Point of Care 209 (65-105)
[2019-07-14] MEDS: INSULIN ASPART (*BKC) 100 UNITS/ML SUB-Q (17:22)
[2019-07-14] MEDS: CLOPIDOGREL BISULFATE 75 MG TABLET PO (17:23)
[2019-07-14] MEDS: WARFARIN (*PBKC) 10 MG TABLET PO (17:24)
[2019-07-14 19:57] LABS: Partial Thromboplastin Time 65.7 SECONDS (22.3-36.8)
[2019-07-14] MEDS: HEPARIN SOD/D5W 100 UNITS/ML 25,000 UNITS/250 ML BAG 8 UNITS IV CONT (20:25)
[2019-07-14] MEDS: INSULIN GLARGINE (*BKC) 100 UNITS/ML 8 UNITS SUB-Q (20:26)
[2019-07-14] MEDS: HEPARIN SODIUM 5,000 UNITS/ML VIAL 3500 UNITS IV PUSH (20:43)
[2019-07-14 20:48] LABS: Glucose Point of Care 228 (65-105)
[2019-07-15 02:00] VITALS: BP 118/64; PULSE 58; RESP 16; TEMP 36.2; O2SAT 96
[2019-07-15 03:13] LABS: INR 2.4; Prothrombin Time 25.7 Seconds (11.1-14.7)
[2019-07-15] MEDS: GABAPENTIN 300 MG CAPSULE PO ×3 (04:50→20:39)
[2019-07-15 06:00] VITALS: BP 107/65; PULSE 70; RESP 18; TEMP 36.3; O2SAT 96
[2019-07-15 06:14] LABS: Glucose Point of Care 158 (65-105)
[2019-07-15 09:16] VITALS: PULSE 70
[2019-07-15] MEDS: METOPROLOL SUCCINATE EXT REL 12.5 MG TABCR PO (09:16)
[2019-07-15] MEDS: lisinopriL 5 MG TABLET PO (09:16)
[2019-07-15] MEDS: PANTOPRAZOLE 40 MG TABLET PO (09:16)
[2019-07-15] MEDS: ASPIRIN 81 MG CHEWABLE TABLET PO (09:16)
[2019-07-15] MEDS: ESCITALOPRAM OXALATE 10 MG TABLET 20 MG PO (09:16)
[2019-07-15] MEDS: ROSUVASTATIN 10 MG TABLET 20 MG PO (09:16)
[2019-07-15] MEDS: CLOPIDOGREL BISULFATE 75 MG TABLET PO (09:16)
[2019-07-15] MEDS: MAGNESIUM OXIDE 400 MG TABLET PO (09:17)
[2019-07-15 11:22] LABS: Partial Thromboplastin Time 91.9 SECONDS (22.3-36.8)
--- NOTE | 2019-07-15 11:56 | PM.IMPN ---
Progress Note: A&P Assessment and Plan (1) H/O mechanical aortic valve replacement: Code(s): Z95.2 - Presence of prosthetic heart valve Status: Chronic Assessment and Plan: No new issues. Patient with a [facility] mechanical valve. Echocardiogram on 05/11/19 shows that the aortic valve mechanical prosthesis is poorly visualized. Functional valve area 1.6 cm2. No prosthetic regurgitation. INR >19 on admission with warfarin held and reversal with vitamin K and FFP given. Heparin resumed on 07/09/2019 with INR down to 1.7. Warfarin resumed on 07/10/2019. INR now up to 2.4 today. Will decrease warfarin to 7 mg tonight. Continue heparin bridge. Hopeful discharge tomorrow if INR therapeutic and no other issues. (2) Abdominal abscess: Status: Acute Assessment and Plan: Appreciate help from general surgery. CT scan on admission with large RLQ abscess. Repeat CT scan on 07/09/2019 with diminished size of RLQ abscess since placement of percutaneous drain. Culture positive for Streptococcus milleri. Discussed with surgery on 07/10/2019. Has been on IV Zosyn with plan to transition to oral Augmentin to complete a 2 week course when ready for discharge but transitioned today as IV Zosyn due to renew. Surgery to be notified of issues with drain. Will monitor. (3) Severe sepsis: Code(s): A41.9 - Sepsis, unspecified organism; R65.20 - Severe sepsis without septic shock Status: Acute Assessment and Plan: Criteria met on admission. Result of intra-abdominal abscess. No on oral Augmentin as noted above. MRSA nasal culture negative. Blood and urine cultures final and negative. Culture of intra-abdominal abscess positive for Streptococcus milleri as noted above. WBC normal at 9.6 on last check on 07/13/2019. (4) Supratherapeutic INR: Code(s): R79.1 - Abnormal coagulation profile Status: Acute Assessment and Plan: PT/PTT were markedly elevated (unmeasurable). INR reversed with vitamin K and FFP. INR 2.4 today as noted above. (5) Atrial flutter: Qualifiers: Atrial flutter type: unspecified Qualified Code(s): I48.92 - Unspecified atrial flutter Code(s): I48.92 - Unspecified atrial flutter Status: Chronic Assessment and Plan: Patient with chronic atrial flutter. No acute issue. Stable. Will monitor. (6) CHF (congestive heart failure): Qualifiers: Heart failure chronicity: chronic Heart failure type: systolic Qualified Code(s): I50.22 - Chronic systolic (congestive) heart failure Code(s): I50.9 - Heart failure, unspecified Status: Chronic Assessment and Plan: Echocardiogram 05/11/19 showing LV EF 30-35%. Remains stable on metoprolol and lisinopril. Continue to hold Lasix for now. Will monitor. (7) Diabetes: Qualifiers: Diabetes mellitus complication status: without complication Diabetes mellitus halfway insulin use: without curriculum manager use Diabetes mellitus type: type 2 Qualified Code(s): E11.9 - Type 2 diabetes mellitus without complications Code(s): E11.9 - Type 2 diabetes mellitus without complications Status: Chronic Assessment and Plan: HgbA1C 8.5. Glucose reviewed on 07/15/2019. Remains on low-dose Lantus here with glucose well controlled. Not on medication at home. Sliding scale insulin available as needed. Will monitor. (8) Hypertension: Qualifiers: Hypertension type: unspecified Qualified Code(s): I10 - Essential (primary) hypertension Code(s): I10 - Essential (primary) hypertension Status: Chronic Assessment and Plan: Blood pressure reviewed on 07/15/2019. Blood pressure still low normal but stable. Will continue metoprolol and lisinopril. Will continue to monitor. (9) Hypokalemia: Code(s): E87.6 - Hypokalemia Status: Resolved Assessment and Plan: Potassium stable at 4.8 on 07/14/2019. Wi
[2019-07-15 12:38] LABS: Glucose Point of Care 124 (65-105)
[2019-07-15] MEDS: AMOXICILLIN/CLAVULANATE K 875-125 MG TAB 1 TABLET PO ×2 (13:39→20:39)
[2019-07-15 14:00] VITALS: BP 94/46; PULSE 80; RESP 18; TEMP 36.4; O2SAT 100
[2019-07-15] MEDS: WARFARIN (*PBKC) 2 MG TABLET PO (17:25)
[2019-07-15] MEDS: WARFARIN (*PBKC) 5 MG TABLET PO (17:25)
[2019-07-15 17:34] LABS: Glucose Point of Care 190 (65-105)
[2019-07-15 17:54] LABS: Partial Thromboplastin Time 67.8 SECONDS (22.3-36.8)
[2019-07-15] MEDS: HEPARIN SODIUM 5,000 UNITS/ML VIAL 3500 UNITS IV PUSH (18:00)
[2019-07-15] MEDS: INSULIN GLARGINE (*BKC) 100 UNITS/ML 8 UNITS SUB-Q (20:47)
[2019-07-15 21:44] VITALS: BP 98/52; PULSE 53; RESP 16; TEMP 36.1; O2SAT 98
[2019-07-15 21:50] LABS: Glucose Point of Care 191 (65-105)
[2019-07-16 00:42] LABS: Partial Thromboplastin Time 194.1 SECONDS (22.3-36.8)
[2019-07-16] MEDS: GABAPENTIN 300 MG CAPSULE PO (05:36)
[2019-07-16 06:00] VITALS: BP 103/81; PULSE 58; RESP 16; TEMP 36.2; O2SAT 98
--- NOTE | 2019-07-16 07:12 | PM.PNGS ---
Progress Note: A&P Assessment and Plan (1) Abdominal abscess: Status: Acute Assessment and Plan: minimal output from drain. Patient plans to go home today. I will see him in the office on and if still doing well, DC pigtail catheter at that time. Subjective Subjective Date/Time Seen: 07/16/19 07:12 Patient reports: no new complaints, pain is less ( no abdominal pain) and tolerating a regular diet Review of Systems Review of Systems: All systems reviewed & are unremarkable except as noted in HPI and below ( HPI) Constitutional: Constitutional: Denies chills, Denies fever(s) and Denies night sweats Exam Const: General: comfortable and no acute distress; No confusion Orientation/consciousness: patient oriented x3 and No confusion GI: Inspection: non-distended and incision ( 45 cc output pigtail catheter yesterday, dark bloody fluid) GI Palp: Yes Soft to palpation, Yes Tenderness to palpation present (GI) ( at exit site of pigtail catheter.), No Guarding due to palpation present (GI) and No Rebound tenderness present Auscultation: normal bowel sounds Neuro: General: patient oriented x3, no focal motor deficits and No confusion Extrem: General: no calf tenderness and no edema Psych: Affect: normal affect Insight: Good insight present (Psych) Judgement: Good judgement present (Psych) Objective Data Vital Signs Vital Signs: Vital Signs - 24 hr 07/15/19 09:16 07/15/19 14:00 07/15/19 21:44 Temperature 36.4 C 36.1 C L Pulse Rate 70 80 53 L Respiratory Rate 18 16 Blood Pressure 94/46 L 98/52 L Pulse Oximetry 100 98 07/16/19 06:00 Temperature 36.2 C L Pulse Rate 58 L Respiratory Rate 16 Blood Pressure 103/81 Pulse Oximetry 98 Intake/Output Intake/Output: Intake & Output 07/13/19 07/14/19 07/15/19 07/16/19 23:59 23:59 23:59 23:59 Intake Total 3050 2610 1872 300 Output Total 2322 3110 2096 1450 Balance 722 -500 -223 -4810 Meds/Results Medications: Active Medications Generic Name Dose Route Start Last Admin Trade Name Freq PRN Reason Stop Dose Admin Hydrocodone Bitart/Acetaminophen 1 tab 07/06/19 00:17 07/16/19 04:46 [place] 5-325 Mg PO 1 tab Q6H PRN Administration Pain Rated 4-6 Amoxicillin/Clavulanate Potassium 1 tablet 07/15/19 21:00 07/15/19 20:39 Augmentin 875-125 Mg Tab PO 1 tablet Q12HR ABBEY Administration Aspirin 81 mg 07/09/19 09:00 07/15/19 09:16 Aspirin Chewable PO 81 mg DAILY ABBEY Administration Clopidogrel Bisulfate 75 mg 07/14/19 09:00 07/15/19 09:16 Plavix PO 75 mg DAILY ABBEY Administration Dextrose 12.5 gm 07/04/19 21:50 Dextrose 50% Syringe IV PUSH PRN PRN Hypoglycemia Protocol Escitalopram Oxalate 20 mg 07/06/19 14:55 07/15/19 09:16 Lexapro PO 20 mg DAILY ABBEY Administration Gabapentin 300 mg 07/06/19 14:00 07/16/19 05:36 Neurontin PO 300 mg Q8HR ABBEY Administration Glucagon 1 mg 07/04/19 21:50 Glucagon For Inj IM PRN PRN Hypoglycemia Protocol Heparin Sodium (Porcine) 4,000 units 07/09/19 08:38 07/13/19 08:40 Heparin Sodium IV PUSH 4,000 units PRN PRN Administration aPTT less than 55 seconds Heparin Sodium (Porcine) 3,500 units 07/09/19 08:38 07/15/19 18:00 Heparin Sodium IV PUSH 3,500 units PRN PRN Administration aPTT 55 - 70 seconds Dextrose 1,000 mls @ 100 mls/hr 07/04/19 21:50 Dextrose 5% 1,000 Ml IVPB PRN PRN Hypoglycemia Protocol Heparin Sodium/Dextrose 25,000 units in 250 mls @ 6 mls/hr 07/09/19 08:40 07/16/19 01:55 Heparin Sodium/D5w 100 Units/Ml IV CONT 600 units/hr .Q24H ABBEY 6 mls/hr Titration Protocol 600 UNITS/HR Insulin Aspart 2 - 5 units 07/05/19 08:00 07/15/19 17:28 Novolog SUB-Q Not Given [facility] Protocol Insulin Glargine 8 units 07/06/19 21:00 07/15/19 20:47 Lantus SUB-Q 8 units HS ABBEY Administration Li
[2019-07-16 07:34] LABS: Glucose Point of Care 115 (65-105)
[2019-07-16 08:09] LABS: Hematocrit 36.9 % (42.0-52.0); Hemoglobin 11.6 g/dL (14.0-18.0); Mean Corpuscular HGB Conc 31.4 g/dl (32-36); Mean Corpuscular Hemoglobin 28.5 pg (26-34); Mean Corpuscular Volume 90.7 fl (80-100); Mean Platelet Volume 9.2 fl (7.4-10.4); Platelet Count Result 458 k/mm3 (150-375); Red Blood Count 4.07 M/mm3 (4.6-6.20); Red Cell Distribution Width 16.2 % (11.5-14.5)
[2019-07-16] MEDS: ESCITALOPRAM OXALATE 10 MG TABLET 20 MG PO (08:16)
[2019-07-16] MEDS: ROSUVASTATIN 10 MG TABLET 20 MG PO (08:16)
[2019-07-16] MEDS: lisinopriL 5 MG TABLET PO (08:16)
[2019-07-16] MEDS: PANTOPRAZOLE 40 MG TABLET PO (08:16)
[2019-07-16] MEDS: CLOPIDOGREL BISULFATE 75 MG TABLET PO (08:16)
[2019-07-16 08:17] VITALS: PULSE 72
[2019-07-16] MEDS: MAGNESIUM OXIDE 400 MG TABLET PO (08:17)
[2019-07-16] MEDS: ASPIRIN 81 MG CHEWABLE TABLET PO (08:17)
[2019-07-16] MEDS: METOPROLOL SUCCINATE EXT REL 12.5 MG TABCR PO (08:17)
[2019-07-16] MEDS: AMOXICILLIN/CLAVULANATE K 875-125 MG TAB 1 TABLET PO (08:17)
[2019-07-16 08:19] LABS: INR 2.5; Prothrombin Time 26.8 Seconds (11.1-14.7)
[2019-07-16 08:20] LABS: Partial Thromboplastin Time 63.7 SECONDS (22.3-36.8)
[2019-07-16 08:30] LABS: Blood Urea Nitrogen 19 mg/dL (9-20); Calcium 9.3 mg/dL (8.4-10.2); Carbon Dioxide 34 mmol/L (22-30); Chloride 99 mmol/L (98-107); Estimated CRCL calculation 65 ml/min; Estimated Glomerular Filt Rate > 60; Glucose 165 mg/dL (75-110); Potassium 5.1 mmol/L (3.4-5.0); Sodium 135 mmol/L (137-145)
--- NOTE | 2019-07-16 08:34 | PC.NURSE ---
Heparin drip stopped per orders.
--- NOTE | 2019-07-16 09:22 | PM.IMPN ---
Progress Note: A&P Assessment and Plan (1) H/O mechanical aortic valve replacement: Code(s): Z95.2 - Presence of prosthetic heart valve Status: Chronic Assessment and Plan: No new issues. Patient with a [facility] mechanical valve. Echocardiogram on 05/11/19 shows that the aortic valve mechanical prosthesis is poorly visualized. Functional valve area 1.6 cm2. No prosthetic regurgitation. INR >19 on admission with warfarin held and reversal with vitamin K and FFP given. Heparin resumed on 07/09/2019 with INR down to 1.7. Warfarin resumed on 07/10/2019. INR now up to 2.5 today with heparin discontinued this morning. Will send home with warfarin 7 mg daily and recheck in [address] Yancey as outpatient. (2) Abdominal abscess: Status: Acute Assessment and Plan: Appreciate help from general surgery. CT scan on admission with large RLQ abscess. Repeat CT scan on 07/09/2019 with diminished size of RLQ abscess since placement of percutaneous drain. Culture positive for Streptococcus milleri. Discussed with surgery on 07/10/2019. Was on IV Zosyn with transition to oral Augmentin yesterday. Follow up with surgery as outpatient. Drain issues corrected yesterday. (3) Severe sepsis: Code(s): A41.9 - Sepsis, unspecified organism; R65.20 - Severe sepsis without septic shock Status: Acute Assessment and Plan: Criteria met on admission. Result of intra-abdominal abscess. No on oral Augmentin as noted above. MRSA nasal culture negative. Blood and urine cultures final and negative. Culture of intra-abdominal abscess positive for Streptococcus milleri as noted above. WBC normal at 10.0 today. (4) Supratherapeutic INR: Code(s): R79.1 - Abnormal coagulation profile Status: Acute Assessment and Plan: PT/PTT were markedly elevated (unmeasurable). INR reversed with vitamin K and FFP. INR 2.5 today as noted above. (5) Atrial flutter: Qualifiers: Atrial flutter type: unspecified Qualified Code(s): I48.92 - Unspecified atrial flutter Code(s): I48.92 - Unspecified atrial flutter Status: Chronic Assessment and Plan: Patient with chronic atrial flutter. No acute issue. Stable. (6) CHF (congestive heart failure): Qualifiers: Heart failure chronicity: chronic Heart failure type: systolic Qualified Code(s): I50.22 - Chronic systolic (congestive) heart failure Code(s): I50.9 - Heart failure, unspecified Status: Chronic Assessment and Plan: Echocardiogram 05/11/19 showing LV EF 30-35%. Stable on metoprolol and lisinopril. Lasix has been on hold but will resume at discharge. Follow as outpatient. (7) Diabetes: Qualifiers: Diabetes mellitus type: type 2 Diabetes mellitus chcf insulin use: without chcf use Diabetes mellitus complication status: without complication Qualified Code(s): E11.9 - Type 2 diabetes mellitus without complications Code(s): E11.9 - Type 2 diabetes mellitus without complications Status: Chronic Assessment and Plan: HgbA1C 8.5. Glucose reviewed on 07/15/2019. Remains on low-dose Lantus here with glucose well controlled. Not on medication at home but okay with continuing Lantus. Will need to follow up with PCP. (8) Hypertension: Qualifiers: Hypertension type: unspecified Qualified Code(s): I10 - Essential (primary) hypertension Code(s): I10 - Essential (primary) hypertension Status: Chronic Assessment and Plan: Blood pressure reviewed on 07/16/2019. Blood pressure stable. Will continue metoprolol and lisinopril. Follow as outpatient. (9) Hypokalemia: Code(s): E87.6 - Hypokalemia Status: Resolved Assessment and Plan: Potassium now 5.1 today. Recheck as outpatient. (10) CAD (coronary artery disease): Qualifiers: Coronary Disease-Associated Artery/Lesion type:
--- NOTE | 2019-07-16 09:32 | PM.DS ---
DS: Diagnosis Admitting Diagnosis Admitting Diagnosis: Sepsis, unspecified organism Discharge Diagnosis (1) H/O mechanical aortic valve replacement: Code(s): Z95.2 - Presence of prosthetic heart valve Status: Chronic (2) Abdominal abscess: Status: Acute (3) Severe sepsis: Code(s): A41.9 - Sepsis, unspecified organism; R65.20 - Severe sepsis without septic shock Status: Acute (4) Supratherapeutic INR: Code(s): R79.1 - Abnormal coagulation profile Status: Acute (5) Atrial flutter: Qualifiers: Atrial flutter type: unspecified Qualified Code(s): I48.92 - Unspecified atrial flutter Code(s): I48.92 - Unspecified atrial flutter Status: Chronic (6) CHF (congestive heart failure): Qualifiers: Heart failure chronicity: chronic Heart failure type: systolic Qualified Code(s): I50.22 - Chronic systolic (congestive) heart failure Code(s): I50.9 - Heart failure, unspecified Status: Chronic (7) Diabetes: Qualifiers: Diabetes mellitus complication status: without complication Diabetes mellitus watermelon 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 insulin use: without watermelon 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 use Diabetes mellitus type: type 2 Qualified Code(s): E11.9 - Type 2 diabetes mellitus without complications Code(s): E11.9 - Type 2 diabetes mellitus without complications Status: Chronic (8) Hypertension: Qualifiers: Hypertension type: unspecified Qualified Code(s): I10 - Essential (primary) hypertension Code(s): I10 - Essential (primary) hypertension Status: Chronic (9) Hypokalemia: Code(s): E87.6 - Hypokalemia Status: Resolved (10) CAD (coronary artery disease): Qualifiers: Associated angina: without angina Coronary Disease-Associated Artery/Lesion type: [place] artery [place] vs. transplanted heart: [place] heart Qualified Code(s): I25.10 - Atherosclerotic heart disease of [place] coronary artery without angina pectoris Code(s): I25.10 - Atherosclerotic heart disease of [place] coronary artery without angina pectoris Status: Chronic (11) Lactic acidosis: Code(s): E87.2 - Acidosis Status: Resolved DS: Summary Hospital Course Reason for hospitalization: Worsening RLQ abdominal pain. Hospital Course: Date of Service of Discharge: July 16, 2019. History of Present Illness: Patient is 64-year-old gentleman with known atrial flutter, congestive heart failure, coronary disease, mechanical aortic valve on chronic anticoagulation with warfarin who presented to the emergency room with complaint of worsening RLQ abdominal pain x5 days. Patient reports pain began while doing yd work and simply thought he had pulled a muscle. He had had chills but no overt fevers. He reports associated diaphoresis, sporadic cough and abdominal distension. He has had nausea but no vomiting. He also reports diarrhea. Additionally patient reports 2 episodes of bloody nose. On evaluation the emergency room findings were consistent with sepsis as well as abscess in the right lower quadrant. General surgery was consulted by the ER. Patient was admitted for further evaluation and treatment. Course in Hospital: Patient is initially admitted to the ICU with Surgical and Critical Care consultations. CT-guided placement of drain into the abscess of the RLQ was done on 07/05/2019. Patient was maintained on IV Zosyn during his stay in converted to oral Augmentin in the last 24 hours. Culture eventually did grow Streptococcus milleri. Drain remains in place with plan to remove as an outpatient. Abdominal pain did decrease. WBC returned to normal prior to discharge. Patient's INR was supratherapeutic on admission with patient receiving vitamin K and FFP as INR unreadable. Once INR had decreased to approximately to heparin drip was started. PTT continue to be monitored. Warfarin was restarted on 07/10/2019. Warfarin dose continued to be adj
== END 2019-07-16 12:35 | disposition home or self-care (01) | DRG 871 ==
LOC: ANHED 20:56 → ANHICU 21:20 → ANHIMU 07-08 22:16 → ANH2MED 07-15 15:14 → ANHICU 07-18 15:04 → ANHIMU 07-18 15:04
PROVIDERS: Emergency Medicine; Internal Medicine; Nurse Practitioner Family; Physician Assistant; Surgery; Admitting Provider Family Medicine; Emergency Provider Emergency Medicine; Visit Provider Hospitalist
DX: A41.9 Sepsis, unspecified organism (principal); K65.1 Peritoneal abscess; I48.92 Unspecified atrial flutter; E87.2 Acidosis; I50.22 Chronic systolic (congestive) heart failure; Z79.01 Long term (current) use of anticoagulants; I25.10 Atherosclerotic heart disease of native coronary artery without angina pectoris; R65.20 Severe sepsis without septic shock; Z95.2 Presence of prosthetic heart valve; E87.6 Hypokalemia; F32.9 Major depressive disorder, single episode, unspecified; I11.0 Hypertensive heart disease with heart failure; I25.5 Ischemic cardiomyopathy; E11.51 Type 2 diabetes mellitus with diabetic peripheral angiopathy without gangrene; Z95.820 Peripheral vascular angioplasty status with implants and grafts; I25.2 Old myocardial infarction; Z95.1 Presence of aortocoronary bypass graft; Z98.49 Cataract extraction status, unspecified eye; F17.210 Nicotine dependence, cigarettes, uncomplicated; R79.1 Abnormal coagulation profile; J44.9 Chronic obstructive pulmonary disease, unspecified; I25.82 Chronic total occlusion of coronary artery
CPT/HCPCS: 36415; 36430; 71046; 74176; 74177; 75989; 76705; 80048; 80053; 80069; 80076; 81001; 82274; 82378; 83036; 83605; 83690; 83735; 84100; 85025; 85027; 85610; 85730; 86140; 86900; 86901; 87040; 87070; 87075; 87076; 87077; 87081; 87086; 87205; 87804; 93005; 96361; 96365; 96372; 96375; 99285; A9270; C1729; C1769; C9113; J1644; J1815; J2250; J2543; J3010; J3430; J3480; J7030; J7050; P9017; Q9967

== ENCOUNTER 2019-08-04 12:37 | Emergency (ER) | payer MEDICARE, SELFPAY ==
--- NOTE | ~2019-08-04 | US_ITS ---
US venous doppler [facility] DATE: 08/04/2019 13:21 INDICATION: Calf pain TECHNIQUE: Real-time and color flow imaging and Doppler analysis of the veins of the left lower extre mity COMPARISON: None FINDINGS: There is spontaneous and phasic flow and normal augmentation and color flow signal and norm al compression of the deep veins of the left lower extremity. The left greater saphenous vein is jc nt. IMPRESSION: No evidence of deep venous thrombosis of left lower extremity Reviewed, dictated and finalized at [facility]. Reviewed, dictated and finalized at [facility].
[2019-08-04 12:40] VITALS: BP 145/95; PULSE 42; RESP 20; TEMP 36.4; O2SAT 92
--- NOTE | 2019-08-04 12:57 | ED.LOWEXIN ---
HPI - Extremity Injury (Lower) General Chief Complaint: Extremity Injury, Lower Stated Complaint: FEET BURNING X2D Time Seen by Provider: 08/04/19 12:46 Source: patient Mode of arrival: ambulatory Limitations: no limitations History of Present Illness HPI Narrative: A 64 y/o male presents to the ED with c/o left calf burning. Pt states that 2 days ago he started to have left calf burning that has been constant since. He denies any injury and has never had these types of symptoms before. Pt used cream on his left leg with no relief. He reports left 2nd toe numbness, but denies back pain, N/V, fever, and left calf swelling. Pt has a PMHx of peripheral neuropathy. MD complaint: leg injury (left calf burning) Onset (ago): day(s) (2) Injury: Left: thigh (calf) Relieving factors: nothing Associated symptoms: numbness (left 2nd toe) Other symptoms: none Related Data Home Medications Medication Instructions Recorded Confirmed aspirin 81 mg PO DAILY 05/10/19 07/31/19 escitalopram oxalate [Lexapro] 20 mg PO DAILY 05/10/19 07/31/19 furosemide 40 mg PO DAILY 05/10/19 07/31/19 gabapentin 300 mg PO TID 05/10/19 07/31/19 isosorbide mononitrate 60 mg PO DAILY 05/10/19 07/31/19 lisinopril 5 mg PO DAILY 05/10/19 07/31/19 nitroglycerin 0.4 mg SUBLINGUAL Q5M PRN 05/10/19 07/31/19 rosuvastatin 20 mg PO DAILY 05/10/19 07/31/19 blood-glucose meter [Accu-Chek 08/04/19 Mervat Plus Meter] Allergies Allergy/AdvReac Type Severity Reaction Status Date / Time No Known Allergies Allergy Verified 07/30/19 10:49 Review of Systems Review of Systems: All systems reviewed & are unremarkable except as noted in HPI and below Constitutional: Constitutional: Denies fever(s) Gastrointestinal: Gastrointestinal: Denies nausea and Denies vomiting Musculoskeletal: Musculoskeletal: Denies back pain, Denies joint swelling (left calf) and Reports other (left calf burning) Neurologic: Reports numbness (left 2nd toe) PMF Past Medical History Medical History Angina at rest Atrial flutter Congestive heart failure Echocardiogram July 2018 showed ejection fraction of 30 to 35% with moderate to severe mitral regurgitation, aortic valve area of 1.3 centimeter squared with mean gradient 8 millimeters of mercury, mild tricuspid regurgitation, and RVSP of 50 to 55 millimeters of mercury. Coronary artery disease Depression Diabetes History of left common carotid artery stent placement March 2019, Bib Benedr History of right common carotid artery stent placement December 2018, Bib Villarreal Hyperlipidemia Hypertension Ischemic cardiomyopathy Myocardial infarction Neoplasm of prostate Peripheral neuropathy Peripheral vascular disease 2012: Bilateral common femoral artery rectum ease and patch angioplasty by Dr. Moreno 2014: Complex intervention of both femoral arteries and SFA is by Dr. Yancey Tobacco use Surgical History Surgical History H/O aortic valve replacement 2003, mechanical aortic valve replacement H/O mechanical aortic valve replacement H/O Spinal surgery H/O vascular surgery Bilateral common femoral endarterectomy with patch angioplasty in 2012. Status post complex intervention of, and superficial femoral artery History of cardiac cath 03/2011: SVG to PDA occluded, radial to OM was string sign, and MALDONADO to LAD was patent. 09/2018: Chronic total occlusion of the mid LAD and mid RCA as well as proximal circumflex with patent MALDONADO to LAD. History of endarterectomy Bilateral. S/P CABG x 2 2009. Status post cataract extraction Family History Family History Mother Diabetes mellitus Breast cancer Hypertension Sibling Diabetes mellitus Hypertension Father Hypertension Pneumonia Social History Social History Social History: Lives with girlfriend, Ba
[2019-08-04 14:43] VITALS: BP 154/93; PULSE 69; RESP 17; O2SAT 96
== END 2019-08-04 14:44 | disposition home or self-care (01) ==
PROVIDERS: Emergency Provider Emergency Medicine
DX: E11.42 Type 2 diabetes mellitus with diabetic polyneuropathy (principal); I48.92 Unspecified atrial flutter; Z79.82 Long term (current) use of aspirin; I25.10 Atherosclerotic heart disease of native coronary artery without angina pectoris; I50.9 Heart failure, unspecified; E78.5 Hyperlipidemia, unspecified; I11.0 Hypertensive heart disease with heart failure; I25.2 Old myocardial infarction; Z95.5 Presence of coronary angioplasty implant and graft; I25.5 Ischemic cardiomyopathy; E11.51 Type 2 diabetes mellitus with diabetic peripheral angiopathy without gangrene; Z79.01 Long term (current) use of anticoagulants; Z79.4 Long term (current) use of insulin; Z95.2 Presence of prosthetic heart valve; Z95.1 Presence of aortocoronary bypass graft; Z98.49 Cataract extraction status, unspecified eye; F17.210 Nicotine dependence, cigarettes, uncomplicated
CPT/HCPCS: 93971; 99284

== ENCOUNTER 2019-08-30 13:13 | Outpatient (RCR) | payer MEDICARE, SELFPAY ==
[2019-06-15 13:46] LABS: INR 4.7; Prothrombin Time 43.3 Seconds (11.1-14.7)
[2019-07-18 16:28] LABS: INR 2.6; Prothrombin Time 27.4 Seconds (11.1-14.7)
[2019-08-03 14:01] LABS: INR 4.2; Prothrombin Time 39.9 Seconds (11.1-14.7)
[2019-08-20 13:03] LABS: INR 4.3; Prothrombin Time 40.4 Seconds (11.1-14.7)
[2019-08-30 13:46] LABS: INR 2.8; Prothrombin Time 29.1 Seconds (11.1-14.7)
== END 2019-09-13 23:59 | disposition home or self-care (01) ==
LOC: ANHLAB 13:13
PROVIDERS: Visit Provider Internal Medicine Cardiovascular Disease
DX: Z51.81 Encounter for therapeutic drug level monitoring (principal); Z79.01 Long term (current) use of anticoagulants; Z95.4 Presence of other heart-valve replacement
CPT/HCPCS: 36415; 85610

== ENCOUNTER 2019-09-18 12:25 | Outpatient (CLI) | payer MEDICARE, SELFPAY ==
--- NOTE | ~2019-09-18 | XR_ITS ---
XR ankle LT min 3V DATE: 09/18/2019 12:59 INDICATION: Injury 2 years ago. Pain of left ankle and dorsum of foot TECHNIQUE: 4 views COMPARISON: None FINDINGS: No fracture or dislocation of the ankle or disruption of the ankle mortise. No periosteal r eaction or bone destruction. IMPRESSION: No significant abnormality Reviewed, dictated and finalized at [facility]. IMPRESSION: No significant abnormality
--- NOTE | ~2019-09-18 | XR_ITS ---
XR foot LT min 3V DATE: 09/18/2019 12:59 INDICATION: Left foot pain TECHNIQUE: 4 views COMPARISON: None FINDINGS: There is mild osteoarthritis at the first metatarsophalangeal joint. No fracture, dislocation, periosteal reaction or bone destruction. IMPRESSION: Mild osteoarthritis at first metatarsophalangeal joint Reviewed, dictated and finalized at [facility].
== END 2019-09-18 12:26 | disposition home or self-care (01) ==
DX: M79.672 Pain in left foot (principal); E11.59 Type 2 diabetes mellitus with other circulatory complications; Z79.4 Long term (current) use of insulin; M19.072 Primary osteoarthritis, left ankle and foot
CPT/HCPCS: 73610; 73630

== ENCOUNTER 2020-02-19 13:07 | Outpatient (RCR) | payer MEDICARE, SELFPAY ==
[2019-11-23 13:42] LABS: INR 1.2; Prothrombin Time 14.6 Seconds (11.1-14.7)
[2019-11-27 11:55] LABS: INR 1.8; Prothrombin Time 20.7 Seconds (11.1-14.7)
[2019-12-04 12:47] LABS: INR 2.7; Prothrombin Time 28.2 Seconds (11.1-14.7)
[2020-01-03 15:08] LABS: INR 1.3; Prothrombin Time 15.8 Seconds (11.1-14.7)
[2020-01-08 14:23] LABS: INR 2.1; Prothrombin Time 23.5 Seconds (11.1-14.7)
[2020-01-28 16:24] LABS: INR 1.4; Prothrombin Time 17.2 Seconds (11.1-14.7)
[2020-02-04 14:36] LABS: INR 1.7; Prothrombin Time 19.1 Seconds (11.1-14.7)
[2020-02-07 11:16] LABS: INR 1.9
[2020-02-11 11:55] LABS: INR 1.5; Prothrombin Time 17.7 Seconds (11.1-14.7)
[2020-02-15 10:56] LABS: INR 1.6; Prothrombin Time 18.4 Seconds (11.1-14.7)
[2020-02-19 13:40] LABS: INR 2.4; Prothrombin Time 25.3 Seconds (11.1-14.7)
== END 2020-02-21 23:59 | disposition home or self-care (01) ==
LOC: ANHLAB 13:07
PROVIDERS: Visit Provider Internal Medicine Cardiovascular Disease
DX: Z51.81 Encounter for therapeutic drug level monitoring (principal); Z95.4 Presence of other heart-valve replacement; Z79.01 Long term (current) use of anticoagulants
CPT/HCPCS: 36415; 85610

== ENCOUNTER 2020-05-13 13:40 | Outpatient (RCR) | payer MEDICARE, SELFPAY ==
[2020-02-26 13:36] LABS: INR 2.3; Prothrombin Time 24.6 Seconds (11.1-14.7)
[2020-03-19 12:47] LABS: INR 2.8; Prothrombin Time 30.3 Seconds (11.1-14.7)
[2020-05-13 14:10] LABS: INR 1.7
== END 2020-05-26 23:59 | disposition home or self-care (01) ==
LOC: ANHLAB 13:40
PROVIDERS: Visit Provider Internal Medicine Cardiovascular Disease
DX: Z51.81 Encounter for therapeutic drug level monitoring (principal); I48.91 Unspecified atrial fibrillation; Z95.4 Presence of other heart-valve replacement; Z79.01 Long term (current) use of anticoagulants
CPT/HCPCS: 36415; 85610

== ENCOUNTER 2020-06-30 12:21 | Emergency (ER) | payer MEDICARE, SELFPAY ==
--- NOTE | ~2020-06-30 | US_ITS ---
EXAMINATION: US art doppler w mame ROBLES DATE: 06/30/2020 14:25 INDICATION: Right lower limb pain and resting right foot pain. TECHNIQUE: Segmental pressures and plethysmographic and Doppler waveforms of the brachial and lower e xtremity arteries were obtained. COMPARISON: None. FINDINGS: Right and left brachial artery pressures of 112 mm Hg and 116 mm Hg, respectively, are concordant (no rmal difference <= 30 mmHg). The right ankle-brachial index (JOSE) unable to be determined. There is no discernible flow with color Doppler in the right dorsalis pedis artery and there is a slow antegrade aphasic flow in the right p osterior tibial artery. The right great toe-brachial index (TBI) is also unable to be determined with no discernible arterial waveform at the right great toe. Arterial waveforms are triphasic with brisk systolic upstroke in the right common femoral artery. A right superficial femoral artery bypass savanah t is thrombosed with no discernible internal flow on color Doppler. Also without discernible arterial waveforms are the right superficial femoral, popliteal, posterior tibial arteries. The left JOSE is 0.87 (normal >= 0.9-1). Arterial waveforms are biphasic with brisk systolic upstrokes throughout the left lower limb. IMPRESSION: 1. Complete thrombosis of the right superficial femoral artery bypass graft with no discernible flow on color Doppler at the right dorsalis pedis artery and with slow antegrade aphasic flow in the right posterior tibial artery. 2. Mildly decreased left JOSE. Reviewed, dictated and finalized at location B. ONOLOGY PHYSICIAN IMPRESSION: 1. Complete thrombosis of the right superficial femoral artery bypass graft wit h no discernible flow on color Doppler at the right dorsalis pedis artery and w ith slow antegrade aphasic flow in the right posterior tibial artery. 2. Mildly decreased left JOSE.
[2020-06-30 12:30] VITALS: BP 126/75; PULSE 102; RESP 16; TEMP 36.4; O2SAT 99
--- NOTE | 2020-06-30 13:01 | ECG_ITS ---
Measurements Intervals [place] Rate: 78 P: 233 NV: 185 QRS: 18 QRSD: 114 T: 233 QT: 320 QTc: 366 Interpretive Statements ATRIAL FLUTTER/TACHYCARDIA INTRAVENTRICULAR CONDUCTION DELAY INFERIOR INFARCT, AGE INDETERMINATE BASELINE ARTIFACT- I, III, V-V3, AVL, V6 ABNORMAL ECG Electronically Signed On 06-30-2020 15:12:01 BROTHEL KEEPER by Jake Bird D.O.
[2020-06-30 13:08] LABS: Basophils Absolute Auto 0.1 K/mm3 (0.0-0.1); Basophils Percent Auto 0.3 % (0.2-1.2); Eosinophils Percent Auto 0.1 % (0-4.4); Hematocrit 43.9 % (42.0-52.0); Hemoglobin 14.7 g/dL (14.0-18.0); Immature Granulocyte Absolute 0.08 K/mm3 (0.00-0.031); Immature Granulocyte Percent A 0.5 % (0-0.5); Lymphocytes Absolute Auto 1.15 K/mm3 (0.9-3.2); Lymphocytes Percent Auto 7.1 % (18.3-44.2); Mean Corpuscular HGB Conc 33.5 g/dl (32-36); Mean Corpuscular Hemoglobin 29.2 pg (26-34); Mean Corpuscular Volume 87.3 fl (80-100); Monocytes Absolute Auto 1.4 K/mm3 (0.1-0.6); Monocytes Percent Auto 8.3 % (2.6-8.5); Neutrophils Absolute Auto 13.6 K/mm3 (1.3-6.7); Neutrophils Percent Auto 83.7 % (45.5-73.1); Platelet Count Result 280 k/mm3 (150-375); Red Blood Count 5.03 M/mm3 (4.6-6.20); Red Cell Distribution Width 16.9 % (11.5-14.5); White Blood Count 16.2 K/mm3 (4.5-10.0)
[2020-06-30] MEDS: SODIUM CHLORIDE 0.9% IV 1,000 ML 999 ML IV CONT (13:13)
[2020-06-30] MEDS: MORPHINE SULFATE (*CRX) 4 MG/ML INJ IV PUSH (13:13)
[2020-06-30 13:26] LABS: INR 4.4; Prothrombin Time 42.2 Seconds (11.1-14.7)
--- NOTE | 2020-06-30 13:26 | ED.GENADULT ---
HPI - General Adult General Chief complaint: Extremity Injury, Lower Stated complaint: leg pain Time Seen by Provider: 06/30/20 12:37 Source: patient History of Present Illness HPI narrative: Patient is a 65 y/o male complaining of right lower leg and foot pain for 1 week. He describes his pain as burning and rates it as 10/10. He states that hanging his leg down helps with his pain slightly. He has not been able to walk for 1 week due to right leg pain. He has no chest pain or SOB. He states that he had previous bilateral LE bypass surgery at [place]. He also had stents in right leg. He attempted to call his vascular surgeon and has appointment this Tuesday. He is on Coumadin for anticoagulation. Related Data Home Medications Medication Instructions Recorded Confirmed aspirin 81 mg PO DAILY 05/10/19 07/31/19 escitalopram oxalate [Lexapro] 20 mg PO DAILY 05/10/19 07/31/19 furosemide 40 mg PO DAILY 05/10/19 07/31/19 gabapentin 300 mg PO TID 05/10/19 07/31/19 isosorbide mononitrate 60 mg PO DAILY 05/10/19 07/31/19 lisinopril 5 mg PO DAILY 05/10/19 07/31/19 nitroglycerin 0.4 mg SUBLINGUAL Q5M PRN 05/10/19 07/31/19 rosuvastatin 20 mg PO DAILY 05/10/19 07/31/19 blood-glucose meter [Accu-Chek 08/04/19 Mervat Plus Meter] Allergies Allergy/AdvReac Type Severity Reaction Status Date / Time No Known Allergies Allergy Verified 06/30/20 12:33 Review of Systems Constitutional: Constitutional: Denies chills, Denies fever(s), Denies headache(s) and Denies weakness Eyes: Eyes: Denies blurry vision ENT: Denies headache(s) and Denies neck pain Cardiovascular: Cardiovascular: Denies chest pain and Denies dyspnea Respiratory: Respiratory: Denies cough and Denies dyspnea Gastrointestinal: Gastrointestinal: Denies abdominal pain, Denies diarrhea, Denies nausea and Denies vomiting Genitourinary: Genitourinary: Denies hematuria and Denies dysuria Musculoskeletal: Musculoskeletal: Reports as per HPI, Denies back pain, Denies neck pain and Reports other (right leg pain) Neurologic: Denies headache(s), Reports numbness (chronic bilateral leg numbness due to neuropathy) and Denies weakness PMFSH Past Medical History Medical History Angina at rest Atrial flutter Congestive heart failure Echocardiogram July 2018 showed ejection fraction of 30 to 35% with moderate to severe mitral regurgitation, aortic valve area of 1.3 centimeter squared with mean gradient 8 millimeters of mercury, mild tricuspid regurgitation, and RVSP of 50 to 55 millimeters of mercury. Coronary artery disease Depression Diabetes History of left common carotid artery stent placement March 2019, Bib Bender History of right common carotid artery stent placement December 2018, Bib Villarreal Hyperlipidemia Hypertension Ischemic cardiomyopathy Myocardial infarction Neoplasm of prostate Peripheral neuropathy Peripheral vascular disease 2012: Bilateral common femoral artery rectum ease and patch angioplasty by Dr. Moreno 2013: Complex intervention of both femoral arteries and SFA is by Dr. Yancey Tobacco use Surgical History Surgical History H/O aortic valve replacement 2003, mechanical aortic valve replacement H/O mechanical aortic valve replacement H/O Spinal surgery H/O vascular surgery Bilateral common femoral endarterectomy with patch angioplasty in 2012. Status post complex intervention of, and superficial femoral artery History of cardiac cath 03/2011: SVG to PDA occluded, radial to OM was string sign, and MALDONADO to LAD was patent. 09/2018: Chronic total occlusion of the mid LAD and mid RCA as well as proximal circumflex with patent MALDONADO to LAD. History of endarterectomy Bilateral. S/P CABG x 2 2009. Status post cataract extraction Family History Family History Mother Diabetes mellitus Breast cancer Hyperte
[2020-06-30 13:28] LABS: Partial Thromboplastin Time 93.6 SECONDS (22.3-36.8)
[2020-06-30 13:36] LABS: Anion Gap 9 mmol/L (8-16); Blood Urea Nitrogen 30 mg/dL (9-20); Calcium 8.9 mg/dL (8.4-10.2); Carbon Dioxide 28 mmol/L (22-30); Chloride 100 mmol/L (98-107); Estimated CRCL calculation 79 ml/min; Estimated Glomerular Filt Rate > 60; Glucose 218 mg/dL (75-110); Potassium 3.8 mmol/L (3.4-5.0); Sodium 137 mmol/L (137-145)
[2020-06-30 13:56] LABS: Alanine Aminotransferase 17 U/L (4-50); Albumin Level 3.9 g/dL (3.5-5.1); Alkaline Phosphatase 97 U/L (38-126); Aspartate Amino Transferase 45 U/L (17-59); Bilirubin,Total 0.6 mg/dL (0.2-1.3)
[2020-06-30 14:45] VITALS: BP 136/84; PULSE 88; RESP 16; O2SAT 97
--- NOTE | 2020-06-30 15:58 | PC.NURSE ---
gina mejia, to take pt to [facility]
--- NOTE | 2020-06-30 16:02 | PC.NURSE ---
called [facility] to transfer patient to [facility]. tara pablo
[2020-06-30 16:38] VITALS: BP 150/98; PULSE 75; RESP 17; TEMP 36.4; O2SAT 100
--- NOTE | 2020-06-30 16:45 | PC.NURSE ---
[facility] has arrived
--- NOTE | 2020-06-30 16:50 | PC.NURSE ---
contacted gina to transfer patient to [facility]. emt arrived at [id number]
[2020-06-30] MEDS: MORPHINE SULFATE (*CRX) 2 MG/ML INJ 4 MG (16:57)
== END 2020-06-30 16:45 | disposition short-term general hospital (02) ==
LOC: ANHED 13:16
PROVIDERS: Emergency Provider Emergency Medicine; PCP Nurse Practitioner
DX: M62.261 Nontraumatic ischemic infarction of muscle, right lower leg (principal); I73.9 Peripheral vascular disease, unspecified; I48.92 Unspecified atrial flutter; I50.9 Heart failure, unspecified; I25.10 Atherosclerotic heart disease of native coronary artery without angina pectoris; E78.5 Hyperlipidemia, unspecified; I11.0 Hypertensive heart disease with heart failure; I25.2 Old myocardial infarction; G62.9 Polyneuropathy, unspecified; F32.9 Major depressive disorder, single episode, unspecified; Z95.5 Presence of coronary angioplasty implant and graft; Z95.1 Presence of aortocoronary bypass graft; Z98.49 Cataract extraction status, unspecified eye; F17.210 Nicotine dependence, cigarettes, uncomplicated; Z79.82 Long term (current) use of aspirin; I74.3 Embolism and thrombosis of arteries of the lower extremities; Z85.46 Personal history of malignant neoplasm of prostate
CPT/HCPCS: 36415; 80053; 85025; 85610; 85730; 93005; 93923; 96374; 96376; 99285; J2270; J7030

== ENCOUNTER 2020-07-11 15:15 | IRF | payer MEDICARE, SELFPAY ==
--- NOTE | ~2020-07-11 | XR_ITS ---
EXAMINATION: XR femur RT min 2V EXAM DATE: 07/15/2020 13:53 INDICATION: Fall, right hip, femur pain. TECHNIQUE: Frontal and crosstable lateral projections right femur. There are no prior studies for c omparison. FINDINGS: Status post recent mid femoral amputation with staple line across the stump. Left inguinal surgical clips, evidence of a prior femoral graft. There are no acute fractures identified. Mild to moderate right hip osteoarthritis. No dislocation. IMPRESSION: Right mid femoral surgical changes. Reviewed, dictated and finalized at location A.
[2020-07-11 14:55] VITALS: BP 108/59; PULSE 65; RESP 18; TEMP 36; O2SAT 97; BMI 23.9
--- NOTE | 2020-07-11 15:42 | WPDREHABHP ---
H&P: HPI History of Present Illness Date/Time: 07/11/20 15:42 HISTORY OF PRESENT ILLNESS: The patient's primary rehab impairment category is Amputation lower extremity The etiologic diagnosis is severe peripheral vascular disease I saw this patient [id number] on 07/11/2020 The patient is a 65-year-old male with past medical history of hypertension, hyperlipidemia, coronary artery disease status post previous CABG, CHF, mechanical aortic valve replacement on Coumadin, COPD, type 2 diabetes with peripheral neuropathy, bilateral carotid artery disease with bilateral carotid artery stenosis status post carotid endarterectomy, patient has a significant history of severe PAD with status post right fem pop bypass in 2019 a left femoral endarterectomy and profundus plasty with left femoral BK pop bypass graft in 2019. Presented with 1 week of right foot ankle pain and decreased motion. Prior to his admission patient began having right foot and ankle pain at rest. He progressed to the point where he was unable to ambulate. He describes these decreased sensation in the foot and decreased ability to move the foot. He was scheduled for an up coming vascular clinical appointment with Dr. Arroyo but pain became so of severe patient was initially seen at [facility] and then transferred to [facility] vascular team. In On arrival INR was 5.6 arterial Doppler showed complete occlusion of the right superficial femoral artery bypass graft with no flow in the distal dorsal pedis and antegrade flow in the distal PT CT WAS OBTAINED WHICH ALSO NOTED OCCLUDED RIGHT BYPASS WITH NO FLOW TO DP AND MINIMAL FLOW TO DP. ON ARRIVAL BOTH THE SENSORY AND MOTOR FUNCTIONS WERE DECREASED. the vascular team initially spoke to the Interventional Radiology about lysis but the supratherapeutic INR was deemed too risky. Patient was taken emergently to the operating room with the vascular team where they performed a femoral bypass embolectomy/thrombectomy with right lower extremity 4 compartment fasciotomies. postoperatively there were no signals past the fasciotomy sites. The patient underwent a right AKA on 07/02/[address] Walls. Postoperatively the patient experienced acute blood loss anemia, leukocytosis, respiratory insufficiency, atrial fib, hypertension, hypocalcemia, elevated CK and acute postoperative pain. The patient is currently hemodynamically stable with a hemoglobin of 9.4 leukocytosis is down trending with current wbc's at 10.4 down from 14.4. Patient's respiratory insufficiency is stable and he is performing incentive spirometry and receives DuoNebs as needed. He is currently on room air. Atrial fib and hypertension are being monitored and managed. The patient's elevated CK was in the setting of known muscular ischemia and continues to be monitored. Hypocalcemia was corrected with calcium gluconate. Postop pain is being controlled with oral analgesics. Anterior care coagulation for mechanical heart valve is currently being bridged with Lovenox and Coumadin. Patient will receive 10 mg of Coumadin tonight and then 6 mg daily will continue to follow INRs. COVID: The patient has not traveled outside the [place] or had contact with someone who is ill and has traveled outside the [place] in the past 21 days. The patient has not traveled to an area that [place] that is experiencing no transmission of the Coronavirus and has not had close personal contact with anyone that has. The patient does not have a fever. The patient is not experiencing lower respiratory illness symptoms. COVID testing is negative as of 07/11/2020. Therapy was initiated at the acute care facility and the patient transferred to us from [facility] on [] FALLS OR SURGERIES: The patient has had major surgeries in the 100 days prior to admission. They had no falls in the past year. They had no falls with injury in the past year. PAST MEDICAL HISTORY: [place]
--- NOTE | 2020-07-11 15:49 | ADMGEN ---
This patient, Onel He, was admitted to [facility] Room 221-01. Patient/family oriented to hospital policies and general routines including ID bracelet, bed and alarms, visiting hours, pain management, procedures, bathroom and other care routines, personal items, smoking policy, room service/diet, and visiting hours. Information on how to activate the Rapid Response Team has been discussed. Patient/Family are encouraged to report perceived risks to care and to ask questions if they do not understand what they are told or what they should do. Arrived to [facility] at 1455 via private auto, alert to place person and time
[2020-07-11 17:13] LABS: Glucose Point of Care 145 (65-105)
[2020-07-11 17:38] LABS: INR 1.1
[2020-07-11] MEDS: SENNA/DOCUSATE SODIUM TABLET 1 TAB PO (18:24)
[2020-07-11] MEDS: WARFARIN (*PBKC) 10 MG TABLET PO (18:24)
[2020-07-11] MEDS: GABAPENTIN 400 MG CAPSULE PO (18:24)
[2020-07-11] MEDS: oxyCODONE HCL (*CRX) 5 MG TAB IR PO (18:25)
[2020-07-11] MEDS: AMITRIPTYLINE HCL 25 MG TABLET PO (20:17)
[2020-07-11] MEDS: ENOXAPARIN 80 MG/0.8 ML SYRINGE SUB-Q (20:18)
[2020-07-11] MEDS: CYCLOBENZAPRINE HCL 5 MG TABLET PO (20:18)
[2020-07-11 21:03] VITALS: BP 106/57; PULSE 67; RESP 18; TEMP 36.6; O2SAT 96
[2020-07-11 21:27] LABS: Glucose Point of Care 196 (65-105)
[2020-07-12] MEDS: oxyCODONE HCL (*CRX) 5 MG TAB IR PO ×5 (04:26→23:34)
[2020-07-12 04:49] LABS: Basophils Absolute Auto 0.1 K/mm3 (0.0-0.1); Basophils Percent Auto 0.6 % (0.2-1.2); Eosinophils Absolute Auto 0.2 K/mm3 (0-0.3); Eosinophils Percent Auto 1.3 % (0-4.4); Hematocrit 36.3 % (42.0-52.0); Hemoglobin 11.5 g/dL (14.0-18.0); Immature Granulocyte Absolute 0.43 K/mm3 (0.00-0.031); Immature Granulocyte Percent A 3.9 % (0-0.5); Lymphocytes Absolute Auto 1.37 K/mm3 (0.9-3.2); Lymphocytes Percent Auto 12.3 % (18.3-44.2); Mean Corpuscular HGB Conc 31.7 g/dl (32-36); Mean Corpuscular Volume 91.4 fl (80-100); Mean Platelet Volume 9.4 fl (7.4-10.4); Monocytes Absolute Auto 0.9 K/mm3 (0.1-0.6); Monocytes Percent Auto 8.4 % (2.6-8.5); Neutrophils Absolute Auto 8.2 K/mm3 (1.3-6.7); Neutrophils Percent Auto 73.5 % (45.5-73.1); Platelet Count Result 478 k/mm3 (150-375); Red Blood Count 3.97 M/mm3 (4.6-6.20); Red Cell Distribution Width 16.8 % (11.5-14.5); White Blood Count 11.2 K/mm3 (4.5-10.0)
[2020-07-12 04:58] LABS: INR 1.3
[2020-07-12 05:02] LABS: Anion Gap 2 mmol/L (8-16); Blood Urea Nitrogen 32 mg/dL (9-20); Calcium 8.9 mg/dL (8.4-10.2); Carbon Dioxide 33 mmol/L (22-30); Chloride 100 mmol/L (98-107); Estimated CRCL calculation 59 ml/min; Estimated Glomerular Filt Rate > 60; Glucose 144 mg/dL (75-110); Potassium 5.1 mmol/L (3.4-5.0); Sodium 135 mmol/L (137-145)
[2020-07-12] MEDS: CYCLOBENZAPRINE HCL 5 MG TABLET PO (05:23)
[2020-07-12 05:28] VITALS: BP 105/65; PULSE 66; RESP 16; TEMP 36.7; O2SAT 95
[2020-07-12 06:47] LABS: Glucose Point of Care 161 (65-105)
--- NOTE | 2020-07-12 08:31 | WPDNEURORHBP ---
Subjective Date/time seen: 07/12/20 08:31 patient seen on morning rounds. Patient admits to stump pain that interfered with his sleep. Review of Systems Review of Systems: All systems reviewed & are unremarkable except as noted in HPI and below Exam Narrative: Exam Narrative: Patient is seen in bed. Speech is fluent. Heart rate and rhythm is regular with mechanical murmur. Lungs are clear to auscultation. Abdomen is soft. Bilateral upper extremity strength are 4/5. Left lower extremity strength is 4-5. Right stump is in a splint. Incision was not viewed during this exam. Objective Data Vital Signs Vital Signs: Vital Signs - 24 hr 07/11/20 14:55 07/11/20 21:03 07/12/20 05:28 Temperature 36.0 C L 36.6 C 36.7 C Pulse Rate 65 67 66 Respiratory Rate 18 18 16 Blood Pressure 108/59 L 106/57 L 105/65 Pulse Oximetry 97 96 95 Intake/Output Intake/Output: Intake & Output 07/09/20 07/10/20 07/11/20 07/12/20 23:59 23:59 23:59 23:59 Intake Total 240 Balance 240 Meds/Results Medications: Active Medications Generic Name Dose Route Start Last Admin Trade Name Freq PRN Reason Stop Dose Admin Acetaminophen 1,000 mg 07/11/20 16:07 Acetaminophen 500 Mg Tablet PO Q6H PRN Pain 1-3 Amitriptyline HCl 25 mg 07/11/20 21:00 07/11/20 20:17 Amitriptyline Hcl 25 Mg Tablet PO 25 mg HS ABBEY Administration Aspirin 81 mg 07/12/20 09:00 Aspirin 81 Mg Enteric Tablet PO 08/11/20 09:01 DAILY ABBEY Cyclobenzaprine HCl 5 mg 07/11/20 16:07 07/12/20 05:23 Cyclobenzaprine Hcl 5 Mg Tablet PO 5 mg TID PRN Administration Spasms Dextrose 12.5 gm 07/11/20 16:15 Dextrose 50% 25 Gm/50 Ml Syringe IV PUSH PRN PRN Hypoglycemia Protocol Enoxaparin Sodium 80 mg 07/11/20 21:00 07/11/20 20:18 Enoxaparin 80 Mg/0.8 Ml Syringe SUB-Q 80 mg Q12HR ABBEY Administration Escitalopram Oxalate 20 mg 07/12/20 09:00 Escitalopram Oxalate 10 Mg Tablet PO DAILY ABBEY Gabapentin 400 mg 07/11/20 17:00 07/11/20 18:24 Gabapentin 400 Mg Capsule PO 400 mg TID ABBEY Administration Glucagon 1 mg 07/11/20 16:15 Glucagon For Inj 1 Mg Vial IM PRN PRN Hypoglycemia Protocol Glucose 15 gm 07/11/20 16:15 Glucose Oral Gel 15 Gm Of Glucse In 37.5 Gm Tube PO PRN PRN Hypoglycemia Protocol Dextrose 1,000 mls @ 100 mls/hr 07/11/20 16:15 Dextrose 5% 1,000 Ml IVPB PRN PRN Hypoglycemia Protocol Insulin Aspart 2 - 5 units 07/11/20 17:00 07/11/20 18:06 Insulin Aspart (*Bkc) 100 Units/Ml SUB-Q Not Given TIDWM [facility] Protocol Magnesium Oxide 400 mg 07/12/20 09:00 Magnesium Oxide 400 Mg Tablet PO QAM [facility] Metoprolol Succinate 12.5 mg 07/12/20 09:00 Metoprolol Succinate Ext Rel 12.5 Mg Tabcr PO 08/11/20 09:01 DAILY [facility] Oxycodone HCl 5 mg 07/11/20 16:44 07/12/20 04:26 Oxycodone Hcl (*Crx) 5 Mg Tab Ir PO 5 mg Q4H PRN Administration Pain Rated 7-10 Polyethylene Glycol 17 gm 07/12/20 09:00 Polyethylene Glycol 3350 17 Gm Powd.Pack PO QAM [facility] Rosuvastatin Calcium 40 mg 07/12/20 09:00 Rosuvastatin 10 Mg Tablet PO DAILY [facility] Senna/Docusate Sodium 1 tab 07/11/20 17:00 07/11/20 18:24 Senna/Docusate Sodium Tablet PO 1 tab BID [facility] Administration Warfarin Sodium 6 mg 07/12/20 17:00 Warfarin (*Pbkc) 3 Mg Tablet PO DAILY@1700 [facility] Labs Labs: Laboratory Results - last 24 hr 07/11/20 07/11/20 07/11/20 17:02 17:16 20:28 WBC RBC Hgb Hct MCV MCH MCHC RDW Plt Count MPV Immature Gran % (Auto) Neut % (Auto) Lymph % (Auto) [place] % (Auto) Eos % (Auto) Baso % (Auto) Lymph # (Auto) [place] # (Auto) Eos # (Auto) Baso # (Auto) Abs Immat Gran (auto) Absolute Neuts (auto) Absolute Nucleated RBC Nucleated RBC % PT 15.0 H INR 1.1 Sodium
[2020-07-12] MEDS: ENOXAPARIN 80 MG/0.8 ML SYRINGE SUB-Q ×2 (08:37→20:17)
[2020-07-12] MEDS: ROSUVASTATIN 10 MG TABLET 40 MG PO (08:38)
[2020-07-12] MEDS: ESCITALOPRAM OXALATE 10 MG TABLET 20 MG PO (08:38)
[2020-07-12] MEDS: GABAPENTIN 400 MG CAPSULE PO ×2 (08:39→17:16)
[2020-07-12] MEDS: polyethylene glycoL 3350 17 GM POWD.PACK PO (08:39)
[2020-07-12] MEDS: SENNA/DOCUSATE SODIUM TABLET 1 TAB PO ×2 (08:39→17:15)
[2020-07-12] MEDS: ASPIRIN 81 MG ENTERIC TABLET PO (08:49)
[2020-07-12 08:50] VITALS: PULSE 66
[2020-07-12] MEDS: MAGNESIUM OXIDE 400 MG TABLET PO (08:50)
[2020-07-12] MEDS: METOPROLOL SUCCINATE EXT REL 12.5 MG TABCR PO (08:50)
[2020-07-12 12:15] LABS: Glucose Point of Care 137 (65-105)
[2020-07-12 14:00] VITALS: BP 104/59; PULSE 61; RESP 18; TEMP 35.7; O2SAT 100
[2020-07-12] MEDS: WARFARIN (*PBKC) 3 MG TABLET 6 MG PO (17:15)
[2020-07-12 17:19] LABS: Glucose Point of Care 116 (65-105)
[2020-07-12] MEDS: GABAPENTIN 300 MG CAPSULE 600 MG PO (20:16)
[2020-07-12] MEDS: AMITRIPTYLINE HCL 25 MG TABLET PO (20:16)
[2020-07-12 21:08] VITALS: BP 105/46; PULSE 97; RESP 18; TEMP 36.2; O2SAT 99
[2020-07-12 21:15] LABS: Glucose Point of Care 190 (65-105)
--- NOTE | 2020-07-13 03:54 | PC.NURSE ---
Daylight Savings Time For Daylight Savings Time Ending in the Fall - Clocks are moved back. For Daylight Savings Time Beginning in the Spring - Clocks are moved ahead. For [facility], the time of change occurs at 0200 hrs. Time is taken from the rewrite editor. This entry on the patient's chart recognizes the change in time reflected during documentation. Example: 2 entries for vital signs may be charted for 0200 hrs.
[2020-07-13 04:31] VITALS: BP 136/56; PULSE 86; RESP 18; TEMP 36.2; O2SAT 100
[2020-07-13 04:34] LABS: Basophils Absolute Auto 0.1 K/mm3 (0.0-0.1); Basophils Percent Auto 0.5 % (0.2-1.2); Eosinophils Absolute Auto 0.1 K/mm3 (0-0.3); Eosinophils Percent Auto 1.5 % (0-4.4); Hematocrit 39.4 % (42.0-52.0); Hemoglobin 12.4 g/dL (14.0-18.0); Immature Granulocyte Absolute 0.28 K/mm3 (0.00-0.031); Lymphocytes Absolute Auto 1.67 K/mm3 (0.9-3.2); Mean Corpuscular HGB Conc 31.5 g/dl (32-36); Mean Corpuscular Hemoglobin 28.7 pg (26-34); Mean Corpuscular Volume 91.2 fl (80-100); Mean Platelet Volume 9.1 fl (7.4-10.4); Monocytes Percent Auto 11.1 % (2.6-8.5); Neutrophils Absolute Auto 6.1 K/mm3 (1.3-6.7); Neutrophils Percent Auto 65.9 % (45.5-73.1); Platelet Count Result 514 k/mm3 (150-375); Red Blood Count 4.32 M/mm3 (4.6-6.20); Red Cell Distribution Width 16.7 % (11.5-14.5); White Blood Count 9.3 K/mm3 (4.5-10.0)
[2020-07-13 04:43] LABS: INR 1.6; Prothrombin Time 19.5 Seconds (11.1-14.7)
[2020-07-13 04:48] LABS: Anion Gap 1 mmol/L (8-16); Blood Urea Nitrogen 30 mg/dL (9-20); Carbon Dioxide 34 mmol/L (22-30); Chloride 100 mmol/L (98-107); Estimated CRCL calculation 54 ml/min; Estimated Glomerular Filt Rate > 60; Glucose 149 mg/dL (75-110); Sodium 135 mmol/L (137-145)
[2020-07-13] MEDS: oxyCODONE HCL (*CRX) 5 MG TAB IR PO ×4 (06:32→23:46)
[2020-07-13 06:38] LABS: Glucose Point of Care 150 (65-105)
[2020-07-13] MEDS: ESCITALOPRAM OXALATE 10 MG TABLET 20 MG PO (08:11)
[2020-07-13] MEDS: SENNA/DOCUSATE SODIUM TABLET 1 TAB PO ×2 (08:11→16:43)
[2020-07-13] MEDS: ASPIRIN 81 MG ENTERIC TABLET PO (08:11)
[2020-07-13] MEDS: GABAPENTIN 400 MG CAPSULE PO ×2 (08:12→16:43)
[2020-07-13] MEDS: ROSUVASTATIN 10 MG TABLET 40 MG PO (08:12)
[2020-07-13] MEDS: MAGNESIUM OXIDE 400 MG TABLET PO (08:12)
[2020-07-13] MEDS: ENOXAPARIN 80 MG/0.8 ML SYRINGE SUB-Q ×2 (08:14→20:44)
[2020-07-13] MEDS: polyethylene glycoL 3350 17 GM POWD.PACK PO (08:16)
[2020-07-13 09:13] VITALS: PULSE 86
[2020-07-13] MEDS: METOPROLOL SUCCINATE EXT REL 12.5 MG TABCR PO (09:13)
--- NOTE | 2020-07-13 10:07 | WPDNEURORHBP ---
Subjective Date/time seen: 07/13/20 10:07 patient is states that he slept relatively well last night. He admits that he tries not to move to cause pain. Patient feels that he may have pulled a muscle during therapy. Review of Systems Review of Systems: All systems reviewed & are unremarkable except as noted in HPI and below Musculoskeletal: Comments: Muscle tenderness is not noted to the upper quadriceps muscle Functional Status Ambulation Ability Ability to Ambulate 10 Feet: Minimum Assistance X 1 Ambulation Assistive Devices: Walker, Standard Transfers Ability Ability to Transfer In/Out of Chair: Moderate Assistance X 1 Exam Narrative: Exam Narrative: head is normocephalic left lazy eyes noted. Speech is fluent. Poor dentition is present. Heart rate and rhythm is regular. Lungs are clear to auscultation. Abdomen is soft nontender. Bilateral upper extremity strength are 4-5 left lower extremity strength is 4-5. Right amputee side has splint in place. Objective Data Vital Signs Vital Signs: Vital Signs - 24 hr 07/12/20 14:00 07/12/20 21:08 07/13/20 04:31 Temperature 35.7 C L 36.2 C L 36.2 C L Pulse Rate 61 97 86 Respiratory Rate 18 18 18 Blood Pressure 104/59 L 105/46 L 136/56 L Pulse Oximetry 100 99 100 07/13/20 09:13 Temperature Pulse Rate 86 Respiratory Rate Blood Pressure Pulse Oximetry Intake/Output Intake/Output: Intake & Output 07/10/20 07/11/20 07/12/20 07/14/20 23:59 23:59 23:59 00:59 Intake Total 240 1080 240 Balance 240 1080 240 Meds/Results Medications: Active Medications Generic Name Dose Route Start Last Admin Trade Name Freq PRN Reason Stop Dose Admin Acetaminophen 1,000 mg 07/11/20 16:07 Acetaminophen 500 Mg Tablet PO Q6H PRN Pain 1-3 Amitriptyline HCl 25 mg 07/11/20 21:00 07/12/20 20:16 Amitriptyline Hcl 25 Mg Tablet PO 25 mg HS ABBEY Administration Aspirin 81 mg 07/12/20 09:00 07/13/20 08:11 Aspirin 81 Mg Enteric Tablet PO 08/11/20 09:01 81 mg DAILY ABBEY Administration Cyclobenzaprine HCl 5 mg 07/11/20 16:07 07/12/20 05:23 Cyclobenzaprine Hcl 5 Mg Tablet PO 5 mg TID PRN Administration Spasms Dextrose 12.5 gm 07/11/20 16:15 Dextrose 50% 25 Gm/50 Ml Syringe IV PUSH PRN PRN Hypoglycemia Protocol Enoxaparin Sodium 80 mg 07/11/20 21:00 07/13/20 08:14 Enoxaparin 80 Mg/0.8 Ml Syringe SUB-Q 80 mg Q12HR ABBEY Administration Escitalopram Oxalate 20 mg 07/12/20 09:00 07/13/20 08:11 Escitalopram Oxalate 10 Mg Tablet PO 20 mg DAILY ABBEY Administration Gabapentin 400 mg 07/12/20 17:00 07/13/20 08:12 Gabapentin 400 Mg Capsule PO 400 mg BID ABBEY Administration Gabapentin 600 mg 07/12/20 21:00 07/12/20 20:16 Gabapentin 300 Mg Capsule PO 600 mg HS ABBEY Administration Glucagon 1 mg 07/11/20 16:15 Glucagon For Inj 1 Mg Vial IM PRN PRN Hypoglycemia Protocol Glucose 15 gm 07/11/20 16:15 Glucose Oral Gel 15 Gm Of Glucse In 37.5 Gm Tube PO PRN PRN Hypoglycemia Protocol Dextrose 1,000 mls @ 100 mls/hr 07/11/20 16:15 Dextrose 5% 1,000 Ml IVPB PRN PRN Hypoglycemia Protocol Insulin Aspart 2 - 5 units 07/11/20 17:00 07/13/20 07:40 Insulin Aspart (*Bkc) 100 Units/Ml SUB-Q Not Given TIDWM ABBEY Protocol Magnesium Oxide 400 mg 07/12/20 09:00 07/13/20 08:12 Magnesium Oxide 400 Mg Tablet PO 400 mg QAM ABBEY Administration Metoprolol Succinate 12.5 mg 07/12/20 09:00 07/13/20 09:13 Metoprolol Succinate Ext Rel 12.5 Mg Tabcr PO 08/11/20 09:01 12.5 mg DAILY ABBEY Administration Oxycodone HCl 5 mg 07/12/20 12:00 07/13/20 06:32 Oxycodone Hcl (*Crx) 5 Mg Tab Ir PO 07/14/20 06:01 5 mg Q6HR ABBEY Administration Oxycodone HCl 5 mg 07/14/20 10:00 Oxycodone Hcl (*Crx) 5 Mg Tab Ir PO Q4H PRN Pain Rated 7-10 Polyethylene Glycol 17 gm 07/12/20 09:00 07/13/
[2020-07-13 11:21] LABS: Glucose Point of Care 220 (65-105)
[2020-07-13] MEDS: INSULIN ASPART (*BKC) 100 UNITS/ML SUB-Q (11:35)
[2020-07-13 12:35] VITALS: BP 129/74; PULSE 66; RESP 20; TEMP 36.7; O2SAT 96
[2020-07-13 14:00] VITALS: BP 129/74; PULSE 66; RESP 20; TEMP 36.6; O2SAT 96
[2020-07-13] MEDS: ACETAMINOPHEN 500 MG TABLET 1000 MG PO (14:14)
[2020-07-13 16:25] LABS: Glucose Point of Care 181 (65-105)
[2020-07-13] MEDS: WARFARIN (*PBKC) 3 MG TABLET 6 MG PO (16:44)
[2020-07-13 19:51] VITALS: BP 112/58; PULSE 63; RESP 18; TEMP 36.4; O2SAT 100
[2020-07-13 20:00] VITALS: PULSE 63; RESP 18; O2SAT 100
[2020-07-13 20:40] LABS: Glucose Point of Care 173 (65-105)
[2020-07-13] MEDS: AMITRIPTYLINE HCL 25 MG TABLET PO (20:45)
[2020-07-13] MEDS: GABAPENTIN 300 MG CAPSULE 600 MG PO (20:46)
[2020-07-14 04:39] LABS: INR 1.6; Prothrombin Time 19.8 Seconds (11.1-14.7)
[2020-07-14] MEDS: oxyCODONE HCL (*CRX) 5 MG TAB IR PO ×3 (05:48→13:25)
[2020-07-14 06:00] VITALS: BP 118/60; PULSE 89; RESP 16; TEMP 36.3; O2SAT 95
[2020-07-14 06:24] LABS: Glucose Point of Care 119 (65-105)
[2020-07-14] MEDS: ENOXAPARIN 80 MG/0.8 ML SYRINGE SUB-Q ×2 (08:25→20:20)
[2020-07-14] MEDS: ROSUVASTATIN 10 MG TABLET 40 MG PO (08:25)
[2020-07-14 08:26] VITALS: PULSE 89
[2020-07-14] MEDS: METOPROLOL SUCCINATE EXT REL 12.5 MG TABCR PO (08:26)
[2020-07-14] MEDS: GABAPENTIN 400 MG CAPSULE PO (08:27)
[2020-07-14] MEDS: ESCITALOPRAM OXALATE 10 MG TABLET 20 MG PO (08:27)
[2020-07-14] MEDS: ASPIRIN 81 MG ENTERIC TABLET PO (08:27)
[2020-07-14] MEDS: SENNA/DOCUSATE SODIUM TABLET 1 TAB PO ×2 (08:27→17:47)
[2020-07-14] MEDS: polyethylene glycoL 3350 17 GM POWD.PACK PO (08:28)
[2020-07-14] MEDS: MAGNESIUM OXIDE 400 MG TABLET PO (08:29)
--- NOTE | 2020-07-14 08:57 | RPD ---
INDIVIDUALIZED PLAN OF CARE FOR Onel He Brief Synthesis of Pre-Admission Screen, Post-Admission Evaluation and Therapy Evaluations: The patient presents to rehab with severe peripheral vascular disease s/p right above the knee amputation. Comorbidities include acute respiratory failure, leukocytosis, acute blood loss anemia, hyperkalemia, hyponatremia, acute postoperative pain, atrial fibrillation/flutter, hypertension, hyperlipidemia, COPD, diabetes mellitus, elevated CK, pulmonary hypertension, carotid artery stenosis, congestive heart failure, cervical degenerative disc disease, depression, and peripheral vascular disease. The complexity of the patient's medical management, nursing, and therapy needs require an inpatient rehab hospital stay with a physician-led interdisciplinary team approach. The patient?s needs will be best met in an intensive program vs. at a lower level of care. The patient requires physician services for medical oversight, management of post-op complications in the setting of present comorbidities, management of diabetes mellitus diagnosis, and pain management. Post-op complications have included acute blood loss anemia, leukocytosis, hypocalcemia, atrial fibrillation, hypertension, acute postoperative pain, acute respiratory insufficiency, and diabetes mellitus. The patient requires nursing services for anticoagulation therapy, diabetes training, DVT prophylactics, infection protection, medication management and education, pressure relief, and wound care. The patient will be taught how to wrap the residual limb and how to monitor their skin for promotion of healing. Dietary will work with them on medical nutrition therapy for managing diabetes. Deficits include:ADLs, Balance, Endurance, Family Training/Education, Mobility, Pain Management, ROM, Safety, Strength, and Transfers [employer] Duty [employer] Farm Equipment/Case Management for: Discharge Planning and Patient/Family Counseling Physical Therapy: 5 days per week for 90 minutes. Treatments may include: Therapeutic Exercise, Gait Training, Neuromuscular Re-education, Transfer Training, Community Reintegration, Bed Mobility, Patient/Family Education, Wheelchair Mobility Group Therapy/Concurrent Therapy Rationales: -Improve attention span during functional activities in a distracted environment. -Enhance problem solving and/or adequate judgment skills during functional activities in a distracted environment. -Promote increased safety awareness in a distracted environment to reduce fall risk with functional tasks, transfers, and ambulation to allow a more safe, self-sufficient return to the home environment. -Improve dynamic balance skills to promote safety and independence with functional activities in a distracted environment for maximum gain. Occupational Therapy: 5 days per week for 90 minutes. Treatments may include: Therapeutic Exercise, Therapeutic Activity, Cognitive Training, Self-Care Transfer Training, Community Reintegration, Home Management, Patient/Family Education, Wheelchair Mobility Training, Energy Conservation Training Group Therapy/Concurrent Therapy Rationales: -Allow therapist to observe and teach generalization and carry-over of skills learned in individual therapy. -Enhance problem solving and sequencing skills during therapeutic activities in a distracted environment. -Promote increased safety awareness in a realistic setting to reduce fall risk with functional tasks due to visual and verbal distractions. -Increase functional level with ADLs, ADL transfers and use of adaptive equipment through therapeutic activities with others while promoting safety to allow a more safe, self-sufficient return home. Medical Prognosis: Good Anticipated Length of Stay: 10 days Rehab Goals: Eating Goal: 06-Independent Oral Hygiene Goal: 06-Independent Toileting Hygiene Goal: 06-Independent Shower/Bathe Self Goal: 06-Independent Upper Body Dressing Goal: 06-Independent Lower Body Dressing Goal
[2020-07-14] MEDS: CYCLOBENZAPRINE HCL 5 MG TABLET PO ×2 (08:59→15:24)
--- NOTE | 2020-07-14 12:08 | WPDNEURORHBP ---
Subjective Date/time seen: 07/14/20 12:08 Patient complains stump pain. Patient also fell over the weekend. No change in his vision is noted. Review of Systems Review of Systems: All systems reviewed & are unremarkable except as noted in HPI and below Functional Status Ambulation Ability Ability to Ambulate 10 Feet: Minimum Assistance X 1 Ambulation Assistive Devices: Walker, Standard Transfers Ability Ability to Transfer In/Out of Chair: Moderate Assistance X 1 Exam Narrative: Exam Narrative: Patient is resting comfortably in bed. Head is normocephalic. Left external ocular muscle is noted to the left eye neck is supple. Heart rate and rhythm is regular. Lungs are clear to auscultation. Upper extremity strength are 4/5. Left lower extremity strength is 4-5 incision shows good approximation no drainage is noted minimal erythema is located along the incision line and insertions of adam Objective Data Vital Signs Vital Signs: Vital Signs - 24 hr 07/13/20 12:35 07/13/20 14:00 07/13/20 19:51 Temperature 36.7 C 36.6 C 36.4 C Pulse Rate 66 66 63 Respiratory Rate 20 20 18 Blood Pressure 129/74 129/74 112/58 L Pulse Oximetry 96 96 100 07/13/20 20:00 07/14/20 06:00 07/14/20 08:26 Temperature 36.3 C L Pulse Rate 63 89 89 Respiratory Rate 18 16 Blood Pressure 118/60 Pulse Oximetry 100 95 Intake/Output Intake/Output: Intake & Output 07/11/20 07/12/20 07/13/20 07/14/20 22:59 22:59 23:59 23:59 Intake Total 240 Balance 240 Meds/Results Medications: Active Medications Generic Name Dose Route Start Last Admin Trade Name Freq PRN Reason Stop Dose Admin Acetaminophen 1,000 mg 07/11/20 16:07 07/13/20 14:14 Acetaminophen 500 Mg Tablet PO 1,000 mg Q6H PRN Administration Pain 1-3 Amitriptyline HCl 25 mg 07/11/20 21:00 07/13/20 20:45 Amitriptyline Hcl 25 Mg Tablet PO 25 mg HS ABBEY Administration Aspirin 81 mg 07/12/20 09:00 07/14/20 08:27 Aspirin 81 Mg Enteric Tablet PO 08/11/20 09:01 81 mg DAILY ABBEY Administration Cyclobenzaprine HCl 5 mg 07/11/20 16:07 07/14/20 08:59 Cyclobenzaprine Hcl 5 Mg Tablet PO 5 mg TID PRN Administration Spasms Dextrose 12.5 gm 07/11/20 16:15 Dextrose 50% 25 Gm/50 Ml Syringe IV PUSH PRN PRN Hypoglycemia Protocol Enoxaparin Sodium 80 mg 07/11/20 21:00 07/14/20 08:25 Enoxaparin 80 Mg/0.8 Ml Syringe SUB-Q 80 mg Q12HR ABBEY Administration Escitalopram Oxalate 20 mg 07/12/20 09:00 07/14/20 08:27 Escitalopram Oxalate 10 Mg Tablet PO 20 mg DAILY ABBEY Administration Gabapentin 800 mg 07/14/20 21:00 Gabapentin 400 Mg Capsule PO HS ABBEY Gabapentin 600 mg 07/14/20 17:00 Gabapentin 300 Mg Capsule PO BID ABBEY Glucagon 1 mg 07/11/20 16:15 Glucagon For Inj 1 Mg Vial IM PRN PRN Hypoglycemia Protocol Glucose 15 gm 07/11/20 16:15 Glucose Oral Gel 15 Gm Of Glucse In 37.5 Gm Tube PO PRN PRN Hypoglycemia Protocol Dextrose 1,000 mls @ 100 mls/hr 07/11/20 16:15 Dextrose 5% 1,000 Ml IVPB PRN PRN Hypoglycemia Protocol Insulin Aspart 2 - 5 units 07/11/20 17:00 07/14/20 08:27 Insulin Aspart (*Bkc) 100 Units/Ml SUB-Q Not Given TIDWM ABBEY Protocol Magnesium Oxide 400 mg 07/12/20 09:00 07/14/20 08:29 Magnesium Oxide 400 Mg Tablet PO 400 mg QAM ABBEY Administration Metoprolol Succinate 12.5 mg 07/12/20 09:00 07/14/20 08:26 Metoprolol Succinate Ext Rel 12.5 Mg Tabcr PO 08/11/20 09:01 12.5 mg DAILY ABBEY Administration Oxycodone HCl 5 mg 07/14/20 10:00 07/14/20 08:24 Oxycodone Hcl (*Crx) 5 Mg Tab Ir PO 5 mg Q4H PRN Administration Pain Rated 7-10 Polyethylene Glycol 17 gm 07/12/20 09:00 07/14/20 08:28 Polyethylene Glycol 3350 17 Gm Powd.Pack PO 17 gm QAM ABBEY Administration Rosuvastatin Calcium 40 mg 07/12/20 09:00 07/14/20 08:25 Grace
[2020-07-14 12:09] LABS: Glucose Point of Care 172 (65-105)
[2020-07-14 14:00] VITALS: BP 97/67; PULSE 66; RESP 18; TEMP 36.1; O2SAT 98
[2020-07-14 14:08] VITALS: BMI 23.9
[2020-07-14 17:09] LABS: Glucose Point of Care 137 (65-105)
[2020-07-14] MEDS: GABAPENTIN 300 MG CAPSULE 600 MG PO (17:47)
[2020-07-14] MEDS: WARFARIN (*PBKC) 3 MG TABLET 6 MG PO (17:47)
[2020-07-14 20:00] VITALS: PULSE 61; RESP 16; O2SAT 95
[2020-07-14] MEDS: AMITRIPTYLINE HCL 25 MG TABLET PO (20:19)
[2020-07-14] MEDS: GABAPENTIN 400 MG CAPSULE 800 MG PO (20:19)
[2020-07-14 21:03] LABS: Glucose Point of Care 189 (65-105)
[2020-07-14 21:48] VITALS: BP 126/81; PULSE 61; RESP 16; TEMP 36.8; O2SAT 95
[2020-07-15] MEDS: CYCLOBENZAPRINE HCL 5 MG TABLET PO ×3 (02:54→20:42)
[2020-07-15 05:19] LABS: INR 1.8; Prothrombin Time 21.8 Seconds (11.1-14.7)
[2020-07-15 06:00] VITALS: BP 111/63; PULSE 78; RESP 16; TEMP 36.8; O2SAT 97
[2020-07-15 06:25] LABS: Glucose Point of Care 150 (65-105)
[2020-07-15] MEDS: oxyCODONE HCL (*CRX) 5 MG TAB IR PO ×3 (06:54→20:41)
[2020-07-15] MEDS: SENNA/DOCUSATE SODIUM TABLET 1 TAB PO ×2 (09:46→17:11)
[2020-07-15] MEDS: ENOXAPARIN 80 MG/0.8 ML SYRINGE SUB-Q ×2 (09:46→20:40)
[2020-07-15] MEDS: ASPIRIN 81 MG ENTERIC TABLET PO (09:46)
[2020-07-15] MEDS: ROSUVASTATIN 10 MG TABLET 40 MG PO (09:47)
[2020-07-15 09:48] VITALS: PULSE 78
[2020-07-15] MEDS: ESCITALOPRAM OXALATE 10 MG TABLET 20 MG PO (09:48)
[2020-07-15] MEDS: METOPROLOL SUCCINATE EXT REL 12.5 MG TABCR PO (09:48)
[2020-07-15] MEDS: GABAPENTIN 300 MG CAPSULE 600 MG PO ×2 (09:48→17:11)
[2020-07-15] MEDS: polyethylene glycoL 3350 17 GM POWD.PACK PO (09:48)
[2020-07-15] MEDS: MAGNESIUM OXIDE 400 MG TABLET PO (09:48)
--- NOTE | 2020-07-15 10:32 | PCPTNOTE ---
Xi Dueñas PT completed an inpatient rehab wheelchair evaluation on Onel He on 07/15/2020. The patient is unable to safely and independently ambulate household distances due to their current impairments. Their diagnosis is Rt AKA and their impairments include decreased strength, decreased endurance, decreased range of motion, decreased balance, lower extremity weakness, and ataxia. Mr. He's weight bearing status is non-weight bearing to the R LE. The patient demonstrates significant functional mobility limitations that impair their ability to participate in mobility-related activities of daily living (MRADLs), including toileting, feeding, dressing, grooming, and bathing in the customary locations in the home. These limitations cannot be sufficiently resolved by the use of an appropriately fitted cane or walker. It is recommended that the patient utilize a wheelchair for functional mobility within the home in order to facilitate optimal safety, independence and participation in all MRADL's and adequately access their home environment on a regular basis. The patient's home provides adequate access between rooms, maneuvering space, and surfaces to accommodate the recommended wheelchair. The use of a wheelchair for functional mobility is strongly recommended and the patient is receptive to using the wheelchair. The use of this wheelchair will significantly improve the patient's ability to participate in MRADLS and the patient will use it on a regular basis in the home. This will facilitate optimal safety, independence, and participation. The patient has demonstrated sufficient physical and mental capabilities needed to safely propel a manual wheelchair that is provided in the home during a typical day. Recommended Wheelchair Frame: standard Recommended Wheelchair Size: 18x18 Recommended Wheelchair Cushion: standard Wheelchair Leg Recommendations: - Right residual limb support -Anti-tippers are recommended due to patient demonstrating increased risk for falls. They would benefit from anti-tippers with added safety and stabilization. Xi Dueñas DPT Evaluating Therapist Date: 07/15/20 I agree with and certify that the above recommendation is medically necessary. Referring Physician Date I agree with and certify that the above recommendation is medically necessary. Referring Physician Date
[2020-07-15 12:03] LABS: Glucose Point of Care 155 (65-105)
--- NOTE | 2020-07-15 13:35 | PCOTNOTE ---
Attempted OT treatment, but unable to complete as patient out of room for x-ray. Will attempt again later.
--- NOTE | 2020-07-15 13:39 | WPDNEURORHBP ---
Subjective Date/time seen: 07/15/20 13:39 PATIENT ADMITS TO ONGOING RIGHT LATERAL STUMP PAIN PATIENT ADMITS DIFFICULTY SLEEPING. Review of Systems Review of Systems: All systems reviewed & are unremarkable except as noted in HPI and below Functional Status Ambulation Ability Ability to Ambulate 10 Feet: Contact Guard Ambulation Assistive Devices: Walker, Wheeled Transfers Ability Ability to Transfer In/Out of Chair: Contact Guard Exam Narrative: Exam Narrative: Patient is alert and oriented. Left lazy eye is present speech is fluent. Heart rate and rhythm is regular. Lungs are clear to auscultation. Abdomen is soft nontender. Bruising is noted to the right flank area that is increasing in size due to anticoagulation. No bruising is noted to the stump. Patient requires minimal assistance with transfers standing balance deficits are noted. Patient is independent for wheelchair level. Her transfers are Min to contact guard. Gait is 20 ft with front wheel walker with minimal assistance Objective Data Vital Signs Vital Signs: Vital Signs - 24 hr 07/14/20 14:00 07/14/20 20:00 07/14/20 21:48 Temperature 36.1 C L 36.8 C Pulse Rate 66 61 61 Respiratory Rate 18 16 16 Blood Pressure 97/67 L 126/81 Pulse Oximetry 98 95 95 07/15/20 06:00 07/15/20 09:48 Temperature 36.8 C Pulse Rate 78 78 Respiratory Rate 16 Blood Pressure 111/63 Pulse Oximetry 97 Intake/Output Intake/Output: Intake & Output 07/12/20 07/13/20 07/14/20 07/15/20 22:59 23:59 23:59 23:59 Intake Total 720 480 Balance 720 480 Meds/Results Medications: Active Medications Generic Name Dose Route Start Last Admin Trade Name Freq PRN Reason Stop Dose Admin Acetaminophen 1,000 mg 07/11/20 16:07 07/13/20 14:14 Acetaminophen 500 Mg Tablet PO 1,000 mg Q6H PRN Administration Pain 1-3 Amitriptyline HCl 25 mg 07/11/20 21:00 07/14/20 20:19 Amitriptyline Hcl 25 Mg Tablet PO 25 mg HS ABBEY Administration Aspirin 81 mg 07/12/20 09:00 07/15/20 09:46 Aspirin 81 Mg Enteric Tablet PO 08/11/20 09:01 81 mg DAILY ABBEY Administration Cyclobenzaprine HCl 5 mg 07/11/20 16:07 07/15/20 12:12 Cyclobenzaprine Hcl 5 Mg Tablet PO 5 mg TID PRN Administration Spasms Dextrose 12.5 gm 07/11/20 16:15 Dextrose 50% 25 Gm/50 Ml Syringe IV PUSH PRN PRN Hypoglycemia Protocol Enoxaparin Sodium 80 mg 07/11/20 21:00 07/15/20 09:46 Enoxaparin 80 Mg/0.8 Ml Syringe SUB-Q 80 mg Q12HR ABBEY Administration Escitalopram Oxalate 20 mg 07/12/20 09:00 07/15/20 09:48 Escitalopram Oxalate 10 Mg Tablet PO 20 mg DAILY ABBEY Administration Gabapentin 800 mg 07/14/20 21:00 07/14/20 20:19 Gabapentin 400 Mg Capsule PO 800 mg HS ABBEY Administration Gabapentin 600 mg 07/14/20 17:00 07/15/20 09:48 Gabapentin 300 Mg Capsule PO 600 mg BID ABBEY Administration Glucagon 1 mg 07/11/20 16:15 Glucagon For Inj 1 Mg Vial IM PRN PRN Hypoglycemia Protocol Glucose 15 gm 07/11/20 16:15 Glucose Oral Gel 15 Gm Of Glucse In 37.5 Gm Tube PO PRN PRN Hypoglycemia Protocol Dextrose 1,000 mls @ 100 mls/hr 07/11/20 16:15 Dextrose 5% 1,000 Ml IVPB PRN PRN Hypoglycemia Protocol Insulin Aspart 2 - 5 units 07/11/20 17:00 07/15/20 12:09 Insulin Aspart (*Bkc) 100 Units/Ml SUB-Q Not Given TIDWM ABBEY Protocol Magnesium Oxide 400 mg 07/12/20 09:00 07/15/20 09:48 Magnesium Oxide 400 Mg Tablet PO 400 mg QAM ABBEY Administration Metoprolol Succinate 12.5 mg 07/12/20 09:00 07/15/20 09:48 Metoprolol Succinate Ext Rel 12.5 Mg Tabcr PO 08/11/20 09:01 12.5 mg DAILY ABBEY Administration Oxycodone HCl 5 mg 07/14/20 10:00 07/15/20 12:12 Oxycodone Hcl (*Crx) 5 Mg Tab Ir PO 5 mg Q4H PRN Administration Pain Rated 7-10 Polyethylene Glycol 17 gm 07/12/20 09:00 07/15/20 09:48 Polyethylene Glycol
[2020-07-15 14:00] VITALS: BP 124/68; PULSE 76; RESP 18; TEMP 36.6; O2SAT 99
[2020-07-15 16:54] LABS: Glucose Point of Care 148 (65-105)
[2020-07-15] MEDS: WARFARIN (*PBKC) 4 MG TABLET PO (17:11)
[2020-07-15 20:00] VITALS: PULSE 76; RESP 16; O2SAT 98
[2020-07-15] MEDS: AMITRIPTYLINE HCL 25 MG TABLET PO (20:40)
[2020-07-15] MEDS: GABAPENTIN 400 MG CAPSULE 800 MG PO (20:41)
[2020-07-15 21:16] LABS: Glucose Point of Care 179 (65-105)
[2020-07-15 22:00] VITALS: BP 116/72; PULSE 76; RESP 16; TEMP 36.9; O2SAT 98
[2020-07-16] MEDS: oxyCODONE HCL (*CRX) 5 MG TAB IR PO ×3 (03:48→22:50)
[2020-07-16 05:23] LABS: INR 1.8; Prothrombin Time 21.2 Seconds (11.1-14.7)
[2020-07-16 05:38] VITALS: BP 103/61; PULSE 66; RESP 16; TEMP 35.7; O2SAT 93
[2020-07-16 06:03] LABS: Glucose Point of Care 169 (65-105)
[2020-07-16 08:42] VITALS: PULSE 66
[2020-07-16] MEDS: METOPROLOL SUCCINATE EXT REL 12.5 MG TABCR PO (08:42)
[2020-07-16] MEDS: ENOXAPARIN 80 MG/0.8 ML SYRINGE SUB-Q ×2 (08:42→21:09)
[2020-07-16] MEDS: CYCLOBENZAPRINE HCL 5 MG TABLET PO ×2 (08:42→22:52)
[2020-07-16] MEDS: ACETAMINOPHEN 500 MG TABLET 1000 MG PO (08:43)
[2020-07-16] MEDS: polyethylene glycoL 3350 17 GM POWD.PACK PO ×2 (08:43→17:58)
[2020-07-16] MEDS: ROSUVASTATIN 10 MG TABLET 40 MG PO (08:43)
[2020-07-16] MEDS: SENNA/DOCUSATE SODIUM TABLET 1 TAB PO ×2 (08:43→17:58)
[2020-07-16] MEDS: MAGNESIUM OXIDE 400 MG TABLET PO (08:43)
[2020-07-16] MEDS: ESCITALOPRAM OXALATE 10 MG TABLET 20 MG PO (08:43)
[2020-07-16] MEDS: GABAPENTIN 300 MG CAPSULE 600 MG PO ×2 (08:43→17:58)
[2020-07-16] MEDS: ASPIRIN 81 MG ENTERIC TABLET PO (08:43)
--- NOTE | 2020-07-16 10:00 | WPDNEURORHBP ---
Subjective Date/time seen: 07/16/20 10:00 65-year-old male past medical history of carotid artery stenosis, congestive heart failure, chronic obstructive pulmonary disease, cervical degenerative disc disease, depression, hypertension,T2DM, PVD, who presented [facility] on 06/30/2020 with right leg pain. 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 Patient is now transferred [facility] for acute rehabilitation. Patient is being bridged from [facility] to Coumadin secondary to his mechanical aortic valve replacement in 2003. Patient continues to have muscle spasm and pain to the right stump. Functional Status Ambulation Ability Ability to Ambulate 10 Feet: Contact Guard Ambulation Assistive Devices: Walker, Wheeled Transfers Ability Ability to Transfer In/Out of Chair: Contact Guard Exam Narrative: Exam Narrative: Patient is alert and oriented. Left lazy eye is present speech is fluent. Heart rate and rhythm is regular. Lungs are clear to auscultation. Abdomen is soft nontender. Bruising is noted to the right flank area that is increasing in size due to anticoagulation. No bruising is noted to the stump. Patient requires minimal assistance with transfers standing balance deficits are noted. Patient is independent for wheelchair level. Her transfers are Min to contact guard. Gait is 20 ft with front wheel walker with minimal assistance Objective Data Vital Signs Vital Signs: Vital Signs - 24 hr 07/15/20 14:00 07/15/20 20:00 07/15/20 22:00 Temperature 36.6 C 36.9 C Pulse Rate 76 76 76 Respiratory Rate 18 16 16 Blood Pressure 124/68 116/72 Pulse Oximetry 99 98 98 07/16/20 05:38 07/16/20 08:42 Temperature 35.7 C L Pulse Rate 66 66 Respiratory Rate 16 Blood Pressure 103/61 Pulse Oximetry 93 Intake/Output Intake/Output: Intake & Output 07/13/20 07/14/20 07/15/20 07/16/20 23:59 23:59 23:59 23:59 Intake Total 720 720 240 Balance 720 720 240 Meds/Results Medications: Active Medications Generic Name Dose Route Start Last Admin Trade Name Freq PRN Reason Stop Dose Admin Acetaminophen 1,000 mg 07/11/20 16:07 07/16/20 08:43 Acetaminophen 500 Mg Tablet PO 1,000 mg Q6H PRN Administration Pain 1-3 Amitriptyline HCl 25 mg 07/11/20 21:00 07/15/20 20:40 Amitriptyline Hcl 25 Mg Tablet PO 25 mg HS ABBEY Administration Aspirin 81 mg 07/12/20 09:00 07/16/20 08:43 Aspirin 81 Mg Enteric Tablet PO 08/11/20 09:01 81 mg DAILY ABBEY Administration Cyclobenzaprine HCl 5 mg 07/11/20 16:07 07/16/20 08:42 Cyclobenzaprine Hcl 5 Mg Tablet PO 5 mg TID PRN Administration Spasms Dextrose 12.5 gm 07/11/20 16:15 Dextrose 50% 25 Gm/50 Ml Syringe IV PUSH PRN PRN Hypoglycemia Protocol Enoxaparin Sodium 80 mg 07/11/20 21:00 07/16/20 08:42 Enoxaparin 80 Mg/0.8 Ml Syringe SUB-Q 80 mg Q12HR ABBEY Administration Escitalopram Oxalate 20 mg 07/12/20 09:00 07/16/20 08:43 Escitalopram Oxalate 10 Mg Tablet PO 20 mg DAILY ABBEY Administration Gabapentin 800 mg 07/14/20 21:00 07/15/20 20:41 Gabapentin 400 Mg Capsule PO 800 mg HS ABBEY Administration Gabapentin 600 mg 07/14/20 17:00 07/16/20 08:43 Gabapentin 300 Mg Capsule PO 600 mg BID ABBEY Administration Glucagon 1 mg 07/11/20 16:15 Glucagon For Inj 1 Mg Vial IM PRN PRN Hypoglycemia Protocol Glucose 15 gm 07/11/20 16:15 Glucose Oral Gel 15 Gm Of Glucse In 37.5 Gm Tube PO PRN PRN Hypoglycemia Protocol Dextrose 1,000 mls @ 100 mls/hr 07/11/20 16:15 Dextrose 5% 1,000 Ml IVPB PRN PRN Hypoglycemia Protocol Insulin Aspart 2 - 5 units 07/11/20 17:00 07/16/20 07:40 Insulin Aspart (*Bkc) 100 Units/Ml SUB-Q Not Given TIDWM ABBEY Protocol Magnesium Oxide 400 mg 07/12/20 09:00 07/16/20 08:43 Magnesium Oxide 400 Mg Ta
[2020-07-16 12:20] LABS: Glucose Point of Care 172 (65-105)
[2020-07-16] MEDS: BISACODYL 5 MG TABLET EC PO (12:34)
[2020-07-16 14:00] VITALS: BP 118/77; PULSE 93; RESP 20; TEMP 36.1; O2SAT 98
[2020-07-16 16:55] LABS: Glucose Point of Care 143 (65-105)
[2020-07-16] MEDS: WARFARIN (*PBKC) 5 MG TABLET PO (17:59)
[2020-07-16 20:26] VITALS: BP 99/63; PULSE 76; RESP 18; TEMP 36.4; O2SAT 96
[2020-07-16] MEDS: AMITRIPTYLINE HCL 25 MG TABLET PO (21:09)
[2020-07-16] MEDS: GABAPENTIN 400 MG CAPSULE 800 MG PO (21:09)
[2020-07-16 21:52] LABS: Glucose Point of Care 176 (65-105)
[2020-07-17 05:19] VITALS: BP 97/56; PULSE 76; RESP 18; TEMP 36.4; O2SAT 99
[2020-07-17 06:15] LABS: Glucose Point of Care 149 (65-105)
[2020-07-17 06:28] LABS: INR 1.8; Prothrombin Time 21.2 Seconds (11.1-14.7)
[2020-07-17] MEDS: oxyCODONE HCL (*CRX) 5 MG TAB IR PO ×3 (08:28→22:00)
[2020-07-17] MEDS: ENOXAPARIN 80 MG/0.8 ML SYRINGE SUB-Q ×2 (08:29→21:57)
[2020-07-17] MEDS: CYCLOBENZAPRINE HCL 5 MG TABLET PO ×2 (08:29→17:47)
[2020-07-17] MEDS: polyethylene glycoL 3350 17 GM POWD.PACK PO ×2 (08:29→17:43)
[2020-07-17] MEDS: ASPIRIN 81 MG ENTERIC TABLET PO (08:30)
[2020-07-17] MEDS: ESCITALOPRAM OXALATE 10 MG TABLET 20 MG PO (08:30)
[2020-07-17] MEDS: MAGNESIUM OXIDE 400 MG TABLET PO (08:30)
[2020-07-17] MEDS: GABAPENTIN 300 MG CAPSULE 600 MG PO ×2 (08:30→17:42)
[2020-07-17] MEDS: ROSUVASTATIN 10 MG TABLET 40 MG PO (08:30)
[2020-07-17 08:31] VITALS: PULSE 76
[2020-07-17] MEDS: METOPROLOL SUCCINATE EXT REL 12.5 MG TABCR PO (08:31)
[2020-07-17] MEDS: SENNA/DOCUSATE SODIUM TABLET 1 TAB PO ×2 (08:31→17:43)
--- NOTE | 2020-07-17 11:39 | WPDNEURORHBP ---
Subjective Date/time seen: 07/17/20 11:39 Interval history: Patient is a 65-year-old gentleman with past medical history of carotid artery stenosis, congestive heart failure, COPD, cervical degenerative disease, depression, hypertension, hyperlipidemia, pulmonary hypertension, type 2 diabetes, peripheral vascular disease, mechanical aortic valve replacement. Patient was seen at [facility] on 06/30/2020 with worsening right leg pain patient eventually underwent a right AKA on 07/02/2020 at [facility]. Patient is now being admitted for acute rehab patient admits to ongoing stump pain. Pain appears to be decreasing. His significant other is here for caregiver training. She ambulates with a limp and requires balancing using the wall and the hand rails. Review of Systems Review of Systems: All systems reviewed & are unremarkable except as noted in HPI and below Functional Status Ambulation Ability Ability to Ambulate 10 Feet: Minimum Assistance X 1 Ambulation Assistive Devices: Walker, Wheeled Transfers Ability Ability to Transfer In/Out of Chair: Contact Guard Exam Narrative: Exam Narrative: Head is normocephalic. Extra muscles are intact with left lazy eye noted. Speech is fluent. Heart rate and rhythm is regular with systolic ejection murmur of 3/6. Lungs are clear to auscultation. Abdomen is soft nontender. Bilateral upper extremity strength are 4/5. Incision shows good approximation minimal erythema is noted along the incision line. No signs of infection are noted. Objective Data Vital Signs Vital Signs: Vital Signs - 24 hr 07/16/20 14:00 07/16/20 20:26 07/17/20 05:19 Temperature 36.1 C L 36.4 C L 36.4 C Pulse Rate 93 76 76 Respiratory Rate 20 18 18 Blood Pressure 118/77 99/63 L 97/56 L Pulse Oximetry 98 96 99 07/17/20 08:31 Temperature Pulse Rate 76 Respiratory Rate Blood Pressure Pulse Oximetry Intake/Output Intake/Output: Intake & Output 07/14/20 07/15/20 07/16/20 07/17/20 23:59 23:59 23:59 23:59 Intake Total 720 720 960 240 Balance 720 720 960 240 Meds/Results Medications: Active Medications Generic Name Dose Route Start Last Admin Trade Name Freq PRN Reason Stop Dose Admin Acetaminophen 1,000 mg 07/11/20 16:07 07/16/20 08:43 Acetaminophen 500 Mg Tablet PO 1,000 mg Q6H PRN Administration Pain 1-3 Amitriptyline HCl 25 mg 07/11/20 21:00 07/16/20 21:09 Amitriptyline Hcl 25 Mg Tablet PO 25 mg HS ABBEY Administration Aspirin 81 mg 07/12/20 09:00 07/17/20 08:30 Aspirin 81 Mg Enteric Tablet PO 08/11/20 09:01 81 mg DAILY ABBEY Administration Bisacodyl 5 mg 07/16/20 11:15 07/16/20 12:34 Bisacodyl 5 Mg Tablet Ec PO 5 mg QAM PRN Administration Constipation Cyclobenzaprine HCl 5 mg 07/11/20 16:07 07/17/20 08:29 Cyclobenzaprine Hcl 5 Mg Tablet PO 5 mg TID PRN Administration Spasms Dextrose 12.5 gm 07/11/20 16:15 Dextrose 50% 25 Gm/50 Ml Syringe IV PUSH PRN PRN Hypoglycemia Protocol Enoxaparin Sodium 80 mg 07/11/20 21:00 07/17/20 08:29 Enoxaparin 80 Mg/0.8 Ml Syringe SUB-Q 80 mg Q12HR ABBEY Administration Escitalopram Oxalate 20 mg 07/12/20 09:00 07/17/20 08:30 Escitalopram Oxalate 10 Mg Tablet PO 20 mg DAILY ABBEY Administration Gabapentin 800 mg 07/14/20 21:00 07/16/20 21:09 Gabapentin 400 Mg Capsule PO 800 mg HS ABBEY Administration Gabapentin 600 mg 07/14/20 17:00 07/17/20 08:30 Gabapentin 300 Mg Capsule PO 600 mg BID ABBEY Administration Glucagon 1 mg 07/11/20 16:15 Glucagon For Inj 1 Mg Vial IM PRN PRN Hypoglycemia Protocol Glucose 15 gm 07/11/20 16:15 Glucose Oral Gel 15 Gm Of Glucse In 37.5 Gm Tube PO PRN PRN Hypoglycemia Protocol Dextrose 1,000 mls @ 100 mls/hr 07/11/20 16:15 Dextrose 5% 1,000 Ml IVPB PRN PRN Hypoglycemia Protocol Insulin Aspart 2 - 5 units
[2020-07-17 11:56] LABS: Glucose Point of Care 167 (65-105)
[2020-07-17 14:00] VITALS: BP 132/71; PULSE 77; RESP 18; TEMP 36.9; O2SAT 93
[2020-07-17 17:08] LABS: Glucose Point of Care 175 (65-105)
[2020-07-17] MEDS: WARFARIN (*PBKC) 3 MG TABLET 6 MG PO (17:43)
[2020-07-17 20:20] VITALS: BP 136/76; PULSE 76; RESP 18; TEMP 36.8; O2SAT 99
[2020-07-17 21:36] LABS: Glucose Point of Care 177 (65-105)
[2020-07-17] MEDS: AMITRIPTYLINE HCL 25 MG TABLET PO (21:57)
[2020-07-17] MEDS: GABAPENTIN 400 MG CAPSULE 800 MG PO (21:57)
[2020-07-18 05:19] VITALS: BP 133/68; PULSE 66; RESP 18; TEMP 36.6; O2SAT 100
[2020-07-18 05:23] LABS: Prothrombin Time 23.1 Seconds (11.1-14.7)
[2020-07-18 06:56] LABS: Glucose Point of Care 144 (65-105)
[2020-07-18] MEDS: oxyCODONE HCL (*CRX) 5 MG TAB IR PO ×2 (07:28→15:08)
[2020-07-18] MEDS: CYCLOBENZAPRINE HCL 5 MG TABLET PO ×3 (07:29→17:12)
[2020-07-18] MEDS: ENOXAPARIN 80 MG/0.8 ML SYRINGE SUB-Q (07:29)
[2020-07-18] MEDS: MAGNESIUM OXIDE 400 MG TABLET PO (07:30)
[2020-07-18] MEDS: ESCITALOPRAM OXALATE 10 MG TABLET 20 MG PO (07:30)
[2020-07-18] MEDS: SENNA/DOCUSATE SODIUM TABLET 1 TAB PO ×2 (07:30→17:12)
[2020-07-18] MEDS: ASPIRIN 81 MG ENTERIC TABLET PO (07:30)
[2020-07-18 07:31] VITALS: PULSE 66
[2020-07-18] MEDS: METOPROLOL SUCCINATE EXT REL 12.5 MG TABCR PO (07:31)
[2020-07-18] MEDS: polyethylene glycoL 3350 17 GM POWD.PACK PO ×2 (07:31→17:12)
[2020-07-18] MEDS: GABAPENTIN 300 MG CAPSULE 600 MG PO ×2 (07:31→17:12)
[2020-07-18] MEDS: ROSUVASTATIN 10 MG TABLET 40 MG PO (07:31)
[2020-07-18] MEDS: ACETAMINOPHEN 500 MG TABLET 1000 MG PO (11:01)
--- NOTE | 2020-07-18 11:41 | WPDNEURORHBP ---
Subjective Date/time seen: 07/18/20 11:41 Interval history: Patient is a 65-year-old gentleman with past medical history of carotid artery stenosis, congestive heart failure, COPD, cervical degenerative disease, depression, hypertension, hyperlipidemia, pulmonary hypertension, type 2 diabetes, peripheral vascular disease, mechanical aortic valve replacement. Patient was seen at [facility] on 06/30/2020 with worsening right leg pain patient eventually underwent a right AKA on 07/02/2020 at [facility]. Patient is now being admitted for acute rehab patient admits to ongoing stump pain. Pain appears to be decreasing. Patient is experiencing muscle spasms and Flexeril will be adjusted to ABBEY Review of Systems Review of Systems: All systems reviewed & are unremarkable except as noted in HPI and below Functional Status Ambulation Ability Ability to Ambulate 10 Feet: Contact Guard Ambulation Assistive Devices: Walker, Wheeled Transfers Ability Ability to Transfer In/Out of Chair: Contact Guard Exam Narrative: Exam Narrative: Head is normocephalic. Extra muscles are intact with left lazy eye noted. Speech is fluent. Heart rate and rhythm is regular with systolic ejection murmur of 3/6. Lungs are clear to auscultation. Abdomen is soft nontender. Bilateral upper extremity strength are 4/5. patient's transfers are contact guard. ADLs from a seated position are modified independent. Objective Data Vital Signs Vital Signs: Vital Signs - 24 hr 07/17/20 14:00 07/17/20 20:20 07/18/20 05:19 Temperature 36.9 C 36.8 C 36.6 C Pulse Rate 77 76 66 Respiratory Rate 18 18 18 Blood Pressure 132/71 136/76 133/68 Pulse Oximetry 93 99 100 07/18/20 07:31 Temperature Pulse Rate 66 Respiratory Rate Blood Pressure Pulse Oximetry Intake/Output Intake/Output: Intake & Output 07/15/20 07/16/20 07/17/20 07/18/20 23:59 23:59 23:59 23:59 Intake Total 720 960 720 360 Balance 720 960 720 360 Meds/Results Medications: Active Medications Generic Name Dose Route Start Last Admin Trade Name Freq PRN Reason Stop Dose Admin Acetaminophen 1,000 mg 07/11/20 16:07 07/18/20 11:01 Acetaminophen 500 Mg Tablet PO 1,000 mg Q6H PRN Administration Pain 1-3 Amitriptyline HCl 25 mg 07/11/20 21:00 07/17/20 21:57 Amitriptyline Hcl 25 Mg Tablet PO 25 mg HS ABBEY Administration Aspirin 81 mg 07/12/20 09:00 07/18/20 07:30 Aspirin 81 Mg Enteric Tablet PO 08/11/20 09:01 81 mg DAILY ABBEY Administration Bisacodyl 5 mg 07/16/20 11:15 07/16/20 12:34 Bisacodyl 5 Mg Tablet Ec PO 5 mg QAM PRN Administration Constipation Cyclobenzaprine HCl 5 mg 07/18/20 13:00 Cyclobenzaprine Hcl 5 Mg Tablet PO TID ABBEY Dextrose 12.5 gm 07/11/20 16:15 Dextrose 50% 25 Gm/50 Ml Syringe IV PUSH PRN PRN Hypoglycemia Protocol Enoxaparin Sodium 80 mg 07/18/20 21:00 Enoxaparin 80 Mg/0.8 Ml Syringe SUB-Q Q12HR [facility] Escitalopram Oxalate 20 mg 07/12/20 09:00 07/18/20 07:30 Escitalopram Oxalate 10 Mg Tablet PO 20 mg DAILY ABBEY Administration Gabapentin 800 mg 07/14/20 21:00 07/17/20 21:57 Gabapentin 400 Mg Capsule PO 800 mg HS ABBEY Administration Gabapentin 600 mg 07/14/20 17:00 07/18/20 07:31 Gabapentin 300 Mg Capsule PO 600 mg BID ABBEY Administration Glucagon 1 mg 07/11/20 16:15 Glucagon For Inj 1 Mg Vial IM PRN PRN Hypoglycemia Protocol Glucose 15 gm 07/11/20 16:15 Glucose Oral Gel 15 Gm Of Glucse In 37.5 Gm Tube PO PRN PRN Hypoglycemia Protocol Dextrose 1,000 mls @ 100 mls/hr 07/11/20 16:15 Dextrose 5% 1,000 Ml IVPB PRN PRN Hypoglycemia Protocol Insulin Aspart 2 - 5 units 07/11/20 17:00 07/18/20 07:30 Insulin Aspart (*Bkc) 100 Units/Ml SUB-Q Not Given TIDWM ABBEY Protocol Magnesium Oxide 400 mg 07/12/20 09:00 07/18/20 07:30 Alexander
[2020-07-18 12:01] LABS: Glucose Point of Care 148 (65-105)
[2020-07-18 14:00] VITALS: BP 134/61; PULSE 72; RESP 20; TEMP 36.8; O2SAT 97
[2020-07-18 16:59] LABS: Glucose Point of Care 178 (65-105)
[2020-07-18] MEDS: WARFARIN (*PBKC) 3 MG TABLET 6 MG PO (17:13)
[2020-07-18 20:00] VITALS: PULSE 72; RESP 20; O2SAT 97
[2020-07-18 21:03] LABS: Glucose Point of Care 172 (65-105)
[2020-07-18] MEDS: AMITRIPTYLINE HCL 25 MG TABLET PO (21:21)
[2020-07-18] MEDS: GABAPENTIN 400 MG CAPSULE 800 MG PO (21:21)
[2020-07-18 22:00] VITALS: BP 94/54; PULSE 61; RESP 14; TEMP 36.4; O2SAT 96
[2020-07-19] MEDS: oxyCODONE HCL (*CRX) 5 MG TAB IR PO ×2 (04:52→13:25)
[2020-07-19 04:53] VITALS: BP 109/51; PULSE 60; RESP 16; TEMP 36.3; O2SAT 97
[2020-07-19 05:10] LABS: Basophils Absolute Auto 0.1 K/mm3 (0.0-0.1); Basophils Percent Auto 0.7 % (0.2-1.2); Eosinophils Absolute Auto 0.1 K/mm3 (0-0.3); Hematocrit 26.5 % (42.0-52.0); Hemoglobin 8.2 g/dL (14.0-18.0); Immature Granulocyte Absolute 0.04 K/mm3 (0.00-0.031); Immature Granulocyte Percent A 0.4 % (0-0.5); Lymphocytes Absolute Auto 0.86 K/mm3 (0.9-3.2); Lymphocytes Percent Auto 8.7 % (18.3-44.2); Mean Corpuscular HGB Conc 30.9 g/dl (32-36); Mean Corpuscular Volume 90.4 fl (80-100); Mean Platelet Volume 9.7 fl (7.4-10.4); Monocytes Absolute Auto 1.1 K/mm3 (0.1-0.6); Monocytes Percent Auto 10.8 % (2.6-8.5); Neutrophils Absolute Auto 7.7 K/mm3 (1.3-6.7); Neutrophils Percent Auto 78.4 % (45.5-73.1); Platelet Count Result 408 k/mm3 (150-375); Red Blood Count 2.93 M/mm3 (4.6-6.20); Red Cell Distribution Width 15.9 % (11.5-14.5); White Blood Count 9.9 K/mm3 (4.5-10.0)
[2020-07-19 05:21] LABS: INR 1.9; Prothrombin Time 22.4 Seconds (11.1-14.7)
[2020-07-19 05:24] LABS: Anion Gap 1 mmol/L (8-16); Blood Urea Nitrogen 28 mg/dL (9-20); Carbon Dioxide 34 mmol/L (22-30); Chloride 100 mmol/L (98-107); Estimated CRCL calculation 59 ml/min; Estimated Glomerular Filt Rate > 60; Glucose 145 mg/dL (75-110); Potassium 4.8 mmol/L (3.4-5.0); Sodium 135 mmol/L (137-145)
[2020-07-19 06:46] LABS: Glucose Point of Care 155 (65-105)
[2020-07-19] MEDS: ESCITALOPRAM OXALATE 10 MG TABLET 20 MG PO (08:21)
[2020-07-19] MEDS: SENNA/DOCUSATE SODIUM TABLET 1 TAB PO ×2 (08:21→17:17)
[2020-07-19] MEDS: CYCLOBENZAPRINE HCL 5 MG TABLET PO ×3 (08:21→17:18)
[2020-07-19] MEDS: GABAPENTIN 300 MG CAPSULE 600 MG PO ×2 (08:21→17:17)
[2020-07-19] MEDS: ASPIRIN 81 MG ENTERIC TABLET PO (08:21)
[2020-07-19 08:22] VITALS: PULSE 60
[2020-07-19] MEDS: METOPROLOL SUCCINATE EXT REL 12.5 MG TABCR PO (08:22)
[2020-07-19] MEDS: ROSUVASTATIN 10 MG TABLET 40 MG PO (08:22)
[2020-07-19] MEDS: MAGNESIUM OXIDE 400 MG TABLET PO (08:22)
[2020-07-19] MEDS: polyethylene glycoL 3350 17 GM POWD.PACK PO ×2 (08:22→17:18)
[2020-07-19] MEDS: ACETAMINOPHEN 500 MG TABLET 1000 MG PO (08:32)
--- NOTE | 2020-07-19 09:35 | WPDNEURORHBP ---
Subjective Date/time seen: 07/19/20 09:35 Interval history: Patient is a 65-year-old gentleman with past medical history of carotid artery stenosis, congestive heart failure, COPD, cervical degenerative disease, depression, hypertension, hyperlipidemia, pulmonary hypertension, type 2 diabetes, peripheral vascular disease, mechanical aortic valve replacement. Patient was seen at [facility] on 06/30/2020 with worsening right leg pain patient eventually underwent a right AKA on 07/02/2020 at [facility]. Patient is now being admitted for acute rehab Pains is less. Patient is experiencing muscle spasms and Flexeril will be adjusted to ABBEY Endurance is improving Review of Systems Review of Systems: All systems reviewed & are unremarkable except as noted in HPI and below Functional Status Ambulation Ability Ability to Ambulate 10 Feet: Minimum Assistance X 1 Ambulation Assistive Devices: Walker, Wheeled Transfers Ability Ability to Transfer In/Out of Chair: Contact Guard Exam Narrative: Exam Narrative: Head is normocephalic. Extra muscles are intact with left lazy eye noted. Speech is fluent. Heart rate and rhythm is regular with systolic ejection murmur of 3/6. Lungs are clear to auscultation. Abdomen is soft nontender. Bilateral upper extremity strength are 4/5. patient's transfers are contact guard. ADLs from a seated position are modified independent. Stand Pivot tx are SBA. Endurance is better. Patient able to tolerate more therapy INR 1.9 Will increase Coumadin to 8 mg today and &mg daily. Bruising to flank is decreasing and fading Bruise is noted to lateral stump. Incision is clean and dry. Objective Data Vital Signs Vital Signs: Vital Signs - 24 hr 07/18/20 14:00 07/18/20 20:00 07/18/20 22:00 Temperature 36.8 C 36.4 C L Pulse Rate 72 72 61 Respiratory Rate 20 20 14 Blood Pressure 134/61 94/54 L Pulse Oximetry 97 97 96 07/19/20 04:53 07/19/20 08:22 Temperature 36.3 C L Pulse Rate 60 60 Respiratory Rate 16 Blood Pressure 109/51 L Pulse Oximetry 97 Intake/Output Intake/Output: Intake & Output 07/16/20 07/17/20 07/18/20 07/19/20 23:59 23:59 23:59 23:59 Intake Total 960 720 840 240 Balance 960 720 840 240 Meds/Results Medications: Active Medications Generic Name Dose Route Start Last Admin Trade Name Freq PRN Reason Stop Dose Admin Acetaminophen 1,000 mg 07/11/20 16:07 07/19/20 08:32 Acetaminophen 500 Mg Tablet PO 1,000 mg Q6H PRN Administration Pain 1-3 Amitriptyline HCl 25 mg 07/11/20 21:00 07/18/20 21:21 Amitriptyline Hcl 25 Mg Tablet PO 25 mg HS ABBEY Administration Aspirin 81 mg 07/12/20 09:00 07/19/20 08:21 Aspirin 81 Mg Enteric Tablet PO 08/11/20 09:01 81 mg DAILY ABBEY Administration Bisacodyl 5 mg 07/16/20 11:15 07/16/20 12:34 Bisacodyl 5 Mg Tablet Ec PO 5 mg QAM PRN Administration Constipation Cyclobenzaprine HCl 5 mg 07/18/20 13:00 07/19/20 08:21 Cyclobenzaprine Hcl 5 Mg Tablet PO 5 mg TID ABBEY Administration Dextrose 12.5 gm 07/11/20 16:15 Dextrose 50% 25 Gm/50 Ml Syringe IV PUSH PRN PRN Hypoglycemia Protocol Enoxaparin Sodium 80 mg 07/18/20 21:00 Enoxaparin 80 Mg/0.8 Ml Syringe SUB-Q Q12HR ABBEY Escitalopram Oxalate 20 mg 07/12/20 09:00 07/19/20 08:21 Escitalopram Oxalate 10 Mg Tablet PO 20 mg DAILY ABBEY Administration Gabapentin 800 mg 07/14/20 21:00 07/18/20 21:21 Gabapentin 400 Mg Capsule PO 800 mg HS ABBEY Administration Gabapentin 600 mg 07/14/20 17:00 07/19/20 08:21 Gabapentin 300 Mg Capsule PO 600 mg BID ABBEY Administration Glucagon 1 mg 07/11/20 16:15 Glucagon For Inj 1 Mg Vial IM PRN PRN Hypoglycemia Protocol Glucose 15 gm 07/11/20 16:15 Glucose Oral Gel 15 Gm Of Glucse In 37.5 Gm Tube PO PRN PRN Hypoglycemia Protocol Dextrose 1,000 mls @ 100 mls/h
[2020-07-19] MEDS: ENOXAPARIN 80 MG/0.8 ML SYRINGE SUB-Q ×2 (10:05→20:31)
[2020-07-19 11:51] LABS: Glucose Point of Care 131 (65-105)
--- NOTE | 2020-07-19 13:33 | PC.NURSE ---
confirmed with Dr. Gatica HgB of 8.2. orders rec'd for repeat CBC in AM. and to check stool for occult blood if patient has a BM.
[2020-07-19 14:00] VITALS: BP 106/86; PULSE 76; RESP 18; TEMP 36.4; O2SAT 100
[2020-07-19 16:51] LABS: Glucose Point of Care 155 (65-105)
[2020-07-19] MEDS: WARFARIN (*PBKC) 5 MG TABLET PO (17:17)
[2020-07-19] MEDS: WARFARIN (*PBKC) 2 MG TABLET PO (17:17)
[2020-07-19 19:52] VITALS: O2SAT 100
[2020-07-19] MEDS: AMITRIPTYLINE HCL 25 MG TABLET PO (20:31)
[2020-07-19] MEDS: GABAPENTIN 400 MG CAPSULE 800 MG PO (20:31)
[2020-07-19 21:18] VITALS: BP 103/58; PULSE 62; RESP 18; TEMP 36.1; O2SAT 97
[2020-07-19 21:55] LABS: Glucose Point of Care 160 (65-105)
[2020-07-20] MEDS: ACETAMINOPHEN 500 MG TABLET 1000 MG PO (04:43)
[2020-07-20 04:49] LABS: Basophils Absolute Auto 0.1 K/mm3 (0.0-0.1); Basophils Percent Auto 0.7 % (0.2-1.2); Eosinophils Absolute Auto 0.2 K/mm3 (0-0.3); Eosinophils Percent Auto 1.8 % (0-4.4); Immature Granulocyte Absolute 0.03 K/mm3 (0.00-0.031); Immature Granulocyte Percent A 0.4 % (0-0.5); Lymphocytes Absolute Auto 1.14 K/mm3 (0.9-3.2); Mean Corpuscular Hemoglobin 28.8 pg (26-34); Mean Corpuscular Volume 92.7 fl (80-100); Mean Platelet Volume 9.6 fl (7.4-10.4); Monocytes Absolute Auto 0.9 K/mm3 (0.1-0.6); Monocytes Percent Auto 10.6 % (2.6-8.5); Neutrophils Absolute Auto 5.9 K/mm3 (1.3-6.7); Neutrophils Percent Auto 72.5 % (45.5-73.1); Platelet Count Result 410 k/mm3 (150-375); Red Blood Count 3.13 M/mm3 (4.6-6.20); Red Cell Distribution Width 16.2 % (11.5-14.5); White Blood Count 8.1 K/mm3 (4.5-10.0)
[2020-07-20 05:00] LABS: INR 2.3; Prothrombin Time 25.6 Seconds (11.1-14.7)
[2020-07-20 05:02] LABS: Anion Gap 0 mmol/L (8-16); Blood Urea Nitrogen 26 mg/dL (9-20); Calcium 8.3 mg/dL (8.4-10.2); Carbon Dioxide 34 mmol/L (22-30); Chloride 101 mmol/L (98-107); Estimated CRCL calculation 59 ml/min; Estimated Glomerular Filt Rate > 60; Glucose 143 mg/dL (75-110); Potassium 4.8 mmol/L (3.4-5.0); Sodium 135 mmol/L (137-145)
[2020-07-20 05:36] VITALS: BP 104/71; PULSE 62; RESP 18; TEMP 36.6; O2SAT 100
[2020-07-20 06:41] LABS: Glucose Point of Care 131 (65-105)
[2020-07-20] MEDS: ESCITALOPRAM OXALATE 10 MG TABLET 20 MG PO (08:00)
[2020-07-20] MEDS: GABAPENTIN 300 MG CAPSULE 600 MG PO ×2 (08:00→16:54)
[2020-07-20] MEDS: MAGNESIUM OXIDE 400 MG TABLET PO (08:00)
[2020-07-20] MEDS: ASPIRIN 81 MG ENTERIC TABLET PO (08:00)
[2020-07-20] MEDS: SENNA/DOCUSATE SODIUM TABLET 1 TAB PO ×2 (08:00→16:55)
[2020-07-20] MEDS: ROSUVASTATIN 10 MG TABLET 40 MG PO (08:00)
[2020-07-20] MEDS: CYCLOBENZAPRINE HCL 5 MG TABLET PO ×2 (08:00→16:54)
[2020-07-20 08:01] VITALS: PULSE 62
[2020-07-20] MEDS: oxyCODONE HCL (*CRX) 5 MG TAB IR PO (08:01)
[2020-07-20] MEDS: METOPROLOL SUCCINATE EXT REL 12.5 MG TABCR PO (08:01)
[2020-07-20] MEDS: polyethylene glycoL 3350 17 GM POWD.PACK PO (08:03)
--- NOTE | 2020-07-20 08:17 | WPDNEURORHBP ---
Subjective Date/time seen: 07/20/20 08:17 Interval history: Patient is a 65-year-old gentleman with past medical history of carotid artery stenosis, congestive heart failure, COPD, cervical degenerative disease, depression, hypertension, hyperlipidemia, pulmonary hypertension, type 2 diabetes, peripheral vascular disease, mechanical aortic valve replacement. Patient was seen at [facility] on 06/30/2020 with worsening right leg pain patient eventually underwent a right AKA on 07/02/[address] [facility]. Patient is now being admitted for acute rehab Pains is less. Patient is experiencing muscle spasms and Flexeril will be adjusted to ABBEY Endurance is improving Coumadin levels are being adjusted. Review of Systems Review of Systems: All systems reviewed & are unremarkable except as noted in HPI and below Functional Status Ambulation Ability Ability to Ambulate 10 Feet: Contact Guard Ambulation Assistive Devices: Walker, Wheeled Transfers Ability Ability to Transfer In/Out of Chair: Contact Guard Exam Narrative: Exam Narrative: Head is normocephalic. Extra muscles are intact with left lazy eye noted. Speech is fluent. Heart rate and rhythm is regular with systolic ejection murmur of 3/6. Lungs are clear to auscultation. Abdomen is soft nontender. Bilateral upper extremity strength are 4/5. patient's transfers are contact guard. ADLs from a seated position are modified independent. Stand Pivot tx are SBA. Endurance is better. Patient able to tolerate more therapy INR 2.3 Coumadin is at 7 mg daily Bruising to flank is decreasing and fading Bruise is noted to lateral stump. Incision is clean and dry. Drop in HGB noted of 8.2 Today it is 9.0 Objective Data Vital Signs Vital Signs: Vital Signs - 24 hr 07/19/20 08:22 07/19/20 14:00 07/19/20 19:52 Temperature 36.4 C Pulse Rate 60 76 Respiratory Rate 18 Blood Pressure 106/86 Pulse Oximetry 100 100 07/19/20 21:18 07/20/20 05:36 07/20/20 08:01 Temperature 36.1 C L 36.6 C Pulse Rate 62 62 62 Respiratory Rate 18 18 Blood Pressure 103/58 L 104/71 Pulse Oximetry 97 100 Intake/Output Intake/Output: Intake & Output 07/17/20 07/18/20 07/19/20 07/20/20 23:59 23:59 23:59 23:59 Intake Total 720 840 720 Balance 720 840 720 Meds/Results Medications: Active Medications Generic Name Dose Route Start Last Admin Trade Name Rosita PRN Reason Stop Dose Admin Acetaminophen 1,000 mg 07/11/20 16:07 07/20/20 04:43 Acetaminophen 500 Mg Tablet PO 1,000 mg Q6H PRN Administration Pain 1-3 Amitriptyline HCl 25 mg 07/11/20 21:00 07/19/20 20:31 Amitriptyline Hcl 25 Mg Tablet PO 25 mg HS ABBEY Administration Aspirin 81 mg 07/12/20 09:00 07/20/20 08:00 Aspirin 81 Mg Enteric Tablet PO 08/11/20 09:01 81 mg DAILY ABBEY Administration Bisacodyl 5 mg 07/16/20 11:15 07/16/20 12:34 Bisacodyl 5 Mg Tablet Ec PO 5 mg QAM PRN Administration Constipation Cyclobenzaprine HCl 5 mg 07/18/20 13:00 07/20/20 08:00 Cyclobenzaprine Hcl 5 Mg Tablet PO 5 mg TID ABBEY Administration Dextrose 12.5 gm 07/11/20 16:15 Dextrose 50% 25 Gm/50 Ml Syringe IV PUSH PRN PRN Hypoglycemia Protocol Enoxaparin Sodium 80 mg 07/18/20 21:00 07/20/20 08:03 Enoxaparin 80 Mg/0.8 Ml Syringe SUB-Q Not Given Q12HR ABBEY Escitalopram Oxalate 20 mg 07/12/20 09:00 07/20/20 08:00 Escitalopram Oxalate 10 Mg Tablet PO 20 mg DAILY ABBEY Administration Gabapentin 800 mg 07/14/20 21:00 07/19/20 20:31 Gabapentin 400 Mg Capsule PO 800 mg HS ABBEY Administration Gabapentin 600 mg 07/14/20 17:00 07/20/20 08:00 Gabapentin 300 Mg Capsule PO 600 mg BID ABBEY Administration Glucagon 1 mg 07/11/20 16:15 Glucagon For Inj 1 Mg Vial IM PRN PRN Hypoglycemia Protocol Glucose 15 gm 07/11/20 16:15 Glucose Oral Gel 15 Gm Of Glucse In 37.5 Gm Tube P
[2020-07-20 12:00] LABS: Glucose Point of Care 176 (65-105)
[2020-07-20 14:00] VITALS: BP 96/67; PULSE 92; RESP 18; TEMP 36.3; O2SAT 97
[2020-07-20] MEDS: WARFARIN (*PBKC) 5 MG TABLET PO (16:55)
[2020-07-20] MEDS: WARFARIN (*PBKC) 2 MG TABLET PO (16:55)
[2020-07-20 17:08] LABS: Glucose Point of Care 121 (65-105)
[2020-07-20] MEDS: AMITRIPTYLINE HCL 25 MG TABLET PO (20:11)
[2020-07-20] MEDS: GABAPENTIN 400 MG CAPSULE 800 MG PO (20:11)
[2020-07-20 20:15] LABS: Glucose Point of Care 188 (65-105)
[2020-07-20 22:00] VITALS: BP 97/52; PULSE 67; RESP 16; TEMP 36.5; O2SAT 98
[2020-07-21 04:58] LABS: INR 2.2
[2020-07-21 06:00] VITALS: BP 103/53; PULSE 63; RESP 18; TEMP 37; O2SAT 93
[2020-07-21 06:17] LABS: Glucose Point of Care 132 (65-105)
[2020-07-21] MEDS: ASPIRIN 81 MG ENTERIC TABLET PO (08:34)
[2020-07-21] MEDS: ACETAMINOPHEN 500 MG TABLET 1000 MG PO (08:34)
[2020-07-21] MEDS: ESCITALOPRAM OXALATE 10 MG TABLET 20 MG PO (08:35)
[2020-07-21] MEDS: GABAPENTIN 300 MG CAPSULE 600 MG PO ×2 (08:35→17:39)
[2020-07-21] MEDS: CYCLOBENZAPRINE HCL 5 MG TABLET PO ×3 (08:35→17:39)
[2020-07-21] MEDS: SENNA/DOCUSATE SODIUM TABLET 1 TAB PO ×2 (08:35→17:39)
[2020-07-21 08:36] VITALS: PULSE 63
[2020-07-21] MEDS: ROSUVASTATIN 10 MG TABLET 40 MG PO (08:36)
[2020-07-21] MEDS: MAGNESIUM OXIDE 400 MG TABLET PO (08:36)
[2020-07-21] MEDS: METOPROLOL SUCCINATE EXT REL 12.5 MG TABCR PO (08:36)
--- NOTE | 2020-07-21 09:36 | WPDNEURORHBP ---
Subjective Date/time seen: 07/21/20 09:36 Interval history: Patient is a 65-year-old gentleman with past medical history of carotid artery stenosis, congestive heart failure, COPD, cervical degenerative disease, depression, hypertension, hyperlipidemia, pulmonary hypertension, type 2 diabetes, peripheral vascular disease, mechanical aortic valve replacement. Patient was seen at [facility] on 06/30/2020 with worsening right leg pain patient eventually underwent a right AKA on 07/02/2020 at [facility]. Patient is now being admitted for acute rehab Patient looking forward to going home tomorrow. Patient voices confidence in transitioning smoothly to home. Patient voices no complaints. Review of Systems Review of Systems: All systems reviewed & are unremarkable except as noted in HPI and below Functional Status Ambulation Ability Ability to Ambulate 10 Feet: Contact Guard Ability to Ambulate 50 Feet With 2 Turns: Contact Guard Ambulation Assistive Devices: Walker, Wheeled Transfers Ability Ability to Transfer In/Out of Chair: Contact Guard Exam Narrative: Exam Narrative: Head is normocephalic. Extra muscles are intact with left lazy eye noted. Speech is fluent. Heart rate and rhythm is regular with systolic ejection murmur of 3/6. Lungs are clear to auscultation. Abdomen is soft nontender. Bilateral upper extremity strength are 4/5. Patient's transfers are at supervision. ADLs from a seated position are modified independent. Stand Pivot tx are SBA/supervision. Endurance is better. Patient able to tolerate more therapy INR 2.2 Coumadin is at 7 mg daily Bruising to flank is decreasing and fading Bruise is noted to lateral stump. Incision is clean and dry. Objective Data Vital Signs Vital Signs: Vital Signs - 24 hr 07/20/20 14:00 07/20/20 22:00 07/21/20 06:00 Temperature 36.3 C L 36.5 C 37.0 C Pulse Rate 92 67 63 Respiratory Rate 18 16 18 Blood Pressure 96/67 L 97/52 L 103/53 L Pulse Oximetry 97 98 93 07/21/20 08:36 Temperature Pulse Rate 63 Respiratory Rate Blood Pressure Pulse Oximetry Intake/Output Intake/Output: Intake & Output 07/18/20 07/19/20 07/20/20 07/21/20 23:59 23:59 23:59 23:59 Intake Total 840 720 720 Balance 840 720 720 Meds/Results Medications: Active Medications Generic Name Dose Route Start Last Admin Trade Name Freq PRN Reason Stop Dose Admin Acetaminophen 1,000 mg 07/11/20 16:07 07/21/20 08:34 Acetaminophen 500 Mg Tablet PO 1,000 mg Q6H PRN Administration Pain 1-3 Amitriptyline HCl 25 mg 07/11/20 21:00 07/20/20 20:11 Amitriptyline Hcl 25 Mg Tablet PO 25 mg HS ABBEY Administration Aspirin 81 mg 07/12/20 09:00 07/21/20 08:34 Aspirin 81 Mg Enteric Tablet PO 08/11/20 09:01 81 mg DAILY ABBEY Administration Bisacodyl 5 mg 07/16/20 11:15 07/16/20 12:34 Bisacodyl 5 Mg Tablet Ec PO 5 mg QAM PRN Administration Constipation Cyclobenzaprine HCl 5 mg 07/18/20 13:00 07/21/20 08:35 Cyclobenzaprine Hcl 5 Mg Tablet PO 5 mg TID ABBEY Administration Dextrose 12.5 gm 07/11/20 16:15 Dextrose 50% 25 Gm/50 Ml Syringe IV PUSH PRN PRN Hypoglycemia Protocol Enoxaparin Sodium 80 mg 07/18/20 21:00 07/20/20 08:03 Enoxaparin 80 Mg/0.8 Ml Syringe SUB-Q Not Given Q12HR ABBEY Escitalopram Oxalate 20 mg 07/12/20 09:00 07/21/20 08:35 Escitalopram Oxalate 10 Mg Tablet PO 20 mg DAILY ABBEY Administration Gabapentin 800 mg 07/14/20 21:00 07/20/20 20:11 Gabapentin 400 Mg Capsule PO 800 mg HS ABBEY Administration Gabapentin 600 mg 07/14/20 17:00 07/21/20 08:35 Gabapentin 300 Mg Capsule PO 600 mg BID ABBEY Administration Glucagon 1 mg 07/11/20 16:15 Glucagon For Inj 1 Mg Vial IM PRN PRN Hypoglycemia Protocol Glucose 15 gm 07/11/20 16:15 Glucose Oral Gel 15 Gm Of Glucse In 37.5 Gm Tube PO PRN PRN Hypoglycemia
[2020-07-21 11:48] LABS: Glucose Point of Care 125 (65-105)
--- NOTE | 2020-07-21 12:53 | PCDIET ---
Nutrition Follow-Up Complete: No nutrition diagnosis at this time. Nutrition Diagnosis: Patient to consume 75% of meals or greater. Goal met. Patient consuming 100% of most meals on diabetic, heart healthy diet and reports good appetite. Last recorded weight is 73.5 kg. Recommend obtaining new weight. Bowel Motility: Last BM on 07/19/20. Labs Reviewed: Hgb (9.0), Hct (29.0), Glu (143), BUN (26), Na (135), Ca (8.3) Meds Noted: Elavil, Novolog, Mag-Ox, Toprol, Crestor, Senna, Coumadin Additional Notes: No pressure sores documented. Right AKA. Nutrition Monitoring and Evaluation: Follow up in 7 days.
[2020-07-21] MEDS: oxyCODONE HCL (*CRX) 5 MG TAB IR PO (13:54)
[2020-07-21 14:00] VITALS: BP 122/54; PULSE 69; RESP 20; TEMP 36.6; O2SAT 97
[2020-07-21 17:16] LABS: Glucose Point of Care 153 (65-105)
[2020-07-21] MEDS: WARFARIN (*PBKC) 5 MG TABLET PO (17:40)
[2020-07-21] MEDS: WARFARIN (*PBKC) 2 MG TABLET PO (17:40)
[2020-07-21 20:00] VITALS: PULSE 63; RESP 16; O2SAT 98
[2020-07-21] MEDS: GABAPENTIN 400 MG CAPSULE 800 MG PO (21:04)
[2020-07-21] MEDS: AMITRIPTYLINE HCL 25 MG TABLET PO (21:04)
[2020-07-21 21:09] LABS: Glucose Point of Care 145 (65-105)
[2020-07-21 22:00] VITALS: BP 97/55; PULSE 63; RESP 16; TEMP 36.2; O2SAT 98
[2020-07-22 05:06] LABS: INR 2.4; Prothrombin Time 27.1 Seconds (11.1-14.7)
[2020-07-22 06:00] VITALS: BP 117/71; PULSE 60; RESP 16; TEMP 36.7; O2SAT 96
[2020-07-22 06:00] LABS: Glucose Point of Care 126 (65-105)
[2020-07-22] MEDS: ASPIRIN 81 MG ENTERIC TABLET PO (07:24)
[2020-07-22] MEDS: CYCLOBENZAPRINE HCL 5 MG TABLET PO (07:24)
[2020-07-22] MEDS: ESCITALOPRAM OXALATE 10 MG TABLET 20 MG PO (07:24)
[2020-07-22] MEDS: SENNA/DOCUSATE SODIUM TABLET 1 TAB PO (07:24)
[2020-07-22 07:25] VITALS: PULSE 60
[2020-07-22] MEDS: GABAPENTIN 300 MG CAPSULE 600 MG PO (07:25)
[2020-07-22] MEDS: METOPROLOL SUCCINATE EXT REL 12.5 MG TABCR PO (07:25)
[2020-07-22] MEDS: MAGNESIUM OXIDE 400 MG TABLET PO (07:25)
[2020-07-22] MEDS: ROSUVASTATIN 10 MG TABLET 40 MG PO (07:25)
[2020-07-22] MEDS: oxyCODONE HCL (*CRX) 5 MG TAB IR PO (09:12)
--- NOTE | 2020-07-22 11:06 | PM.DS ---
DS: Admitting Diagnosis Admitting Diagnosis Admitting Diagnosis: R AKA DS: Discharge Diagnosis Discharge Diagnosis (1) Amputation of right lower extremity above knee upon examination: Code(s): S78.111A - Complete traumatic amputation at level between right hip and knee, initial encounter Status: Acute Assessment and Plan: continue ongoing physical therapy and occupational therapy. Continue education on desensitization techniques. Patient will receive [facility] PTOT (2) H/O mechanical aortic valve replacement: Code(s): Z95.2 - Presence of prosthetic heart valve Status: Chronic Assessment and Plan: Coumadin is 7mg daily. [employer] Dr. Olvera monitors coumadin dosing. (3) Cholelithiasis with choledocholithiasis: Code(s): K80.70 - Calculus of gallbladder and bile duct without cholecystitis without obstruction Status: Acute Assessment and Plan: monitor (4) DVT prophylaxis: Code(s): Z29.9 - Encounter for prophylactic measures, unspecified Status: Acute Assessment and Plan: patient is on Coumadin and Lovenox. INR is now 2. So Lovenox can be discontinued (5) Hypertension: Qualifiers: Hypertension type: unspecified Qualified Code(s): I10 - Essential (primary) hypertension Code(s): I10 - Essential (primary) hypertension Status: Chronic Assessment and Plan: Patient is taking Toprol (6) Diabetes: Qualifiers: Diabetes mellitus complication status: without complication Diabetes mellitus assistant terminal manager insulin use: without assistant terminal manager use Diabetes mellitus type: type 2 Qualified Code(s): E11.9 - Type 2 diabetes mellitus without complications Code(s): E11.9 - Type 2 diabetes mellitus without complications Status: Chronic (7) CHF (congestive heart failure): Qualifiers: Heart failure chronicity: chronic Heart failure type: systolic Qualified Code(s): I50.22 - Chronic systolic (congestive) heart failure Code(s): I50.9 - Heart failure, unspecified Status: Chronic Assessment and Plan: stable (8) COPD (chronic obstructive pulmonary disease): Qualifiers: COPD type: unspecified COPD Qualified Code(s): J44.9 - Chronic obstructive pulmonary disease, unspecified Code(s): J44.9 - Chronic obstructive pulmonary disease, unspecified Status: Chronic Assessment and Plan: stable (9) Atypical chest pain: Code(s): R07.89 - Other chest pain Status: Chronic (10) Abdominal abscess: Status: Resolved (11) Acute on chronic congestive heart failure: Code(s): I50.9 - Heart failure, unspecified Status: Acute (12) Tobacco use: Code(s): Z72.0 - Tobacco use Status: Chronic (13) Chest pain: Code(s): R07.9 - Chest pain, unspecified Status: Chronic (14) Atrial flutter: Qualifiers: Atrial flutter type: unspecified Qualified Code(s): I48.92 - Unspecified atrial flutter Code(s): I48.92 - Unspecified atrial flutter Status: Chronic (15) Ischemic cardiomyopathy: Code(s): I25.5 - Ischemic cardiomyopathy Status: Chronic (16) CAD (coronary artery disease): Qualifiers: Associated angina: without angina Coronary Disease-Associated Artery/Lesion type: [place] artery [place] vs. transplanted heart: [place] heart Qualified Code(s): I25.10 - Atherosclerotic heart disease of [place] coronary artery without angina pectoris Code(s): I25.10 - Atherosclerotic heart disease of [place] coronary artery without angina pectoris Status: Chronic (17) Acute on chronic systolic heart failure due to valvular disease: Code(s): I50.23 - Acute on chronic systolic (congestive) heart failure; I38 - Endocarditis, valve unspecified Status: Acute (18) Peripheral vascular disease: Code(s): I73.9 - Peripheral vascular disease, unspecified Status: Acut
[2020-07-22 12:03] LABS: Glucose Point of Care 120 (65-105)
== END 2020-07-22 12:40 | disposition home health service (06) | DRG 560 ==
PROVIDERS: Admitting Provider Physical Medicine & Rehabilitation; PCP Nurse Practitioner; Visit Provider Physical Medicine & Rehabilitation
DX: Z47.81 Encounter for orthopedic aftercare following surgical amputation (principal); I50.22 Chronic systolic (congestive) heart failure; D62 Acute posthemorrhagic anemia; Z89.611 Acquired absence of right leg above knee; S30.1XXD Contusion of abdominal wall, subsequent encounter; W19.XXXD Unspecified fall, subsequent encounter; I11.0 Hypertensive heart disease with heart failure; E11.51 Type 2 diabetes mellitus with diabetic peripheral angiopathy without gangrene; E11.42 Type 2 diabetes mellitus with diabetic polyneuropathy; E78.5 Hyperlipidemia, unspecified; G54.6 Phantom limb syndrome with pain; I25.10 Atherosclerotic heart disease of native coronary artery without angina pectoris; J44.9 Chronic obstructive pulmonary disease, unspecified; I48.91 Unspecified atrial fibrillation; I25.2 Old myocardial infarction; Z87.891 Personal history of nicotine dependence; Z95.2 Presence of prosthetic heart valve; Z79.01 Long term (current) use of anticoagulants; Z95.1 Presence of aortocoronary bypass graft; Z79.4 Long term (current) use of insulin
CPT/HCPCS: 36415; 73552; 80048; 82948; 85025; 85610; 92523; 97110; 97116; 97162; 97165; 97530; 97535; 97542; A9270; J1650; J1815

== ENCOUNTER 2020-10-21 16:28 | Outpatient (RCR) | payer MEDICARE, SELFPAY ==
[2020-08-04 12:56] LABS: INR 3.6; Prothrombin Time 36.5 Seconds (11.1-14.7)
[2020-08-12 14:54] LABS: INR 3.6; Prothrombin Time 36.2 Seconds (11.1-14.7)
[2020-09-18 17:24] LABS: INR 3.5; Prothrombin Time 35.5 Seconds (11.1-14.7)
[2020-10-07 15:43] LABS: Prothrombin Time 58.7 Seconds (11.1-14.7)
[2020-10-07 15:53] LABS: INR 6.8
[2020-10-10 14:35] LABS: INR 4.5; Prothrombin Time 42.8 Seconds (11.1-14.7)
[2020-10-14 16:36] LABS: INR 1.2; Prothrombin Time 16.2 Seconds (11.1-14.7)
[2020-10-21 17:00] LABS: INR 2.4; Prothrombin Time 26.4 Seconds (11.1-14.7)
== END 2020-11-02 23:59 | disposition home or self-care (01) ==
LOC: ANHLAB 16:28
PROVIDERS: Visit Provider Internal Medicine Cardiovascular Disease
DX: I48.91 Unspecified atrial fibrillation (principal); Z95.4 Presence of other heart-valve replacement
CPT/HCPCS: 36415; 85610

== ENCOUNTER 2020-12-23 13:17 | Outpatient (RCR) | payer MEDICARE, SELFPAY ==
[2020-12-23 13:59] LABS: INR 3.2
== END 2021-03-23 23:59 | disposition home or self-care (01) ==
LOC: ANHLAB 13:17
PROVIDERS: Visit Provider Internal Medicine Cardiovascular Disease
DX: Z51.81 Encounter for therapeutic drug level monitoring (principal); I48.91 Unspecified atrial fibrillation; Z95.4 Presence of other heart-valve replacement
CPT/HCPCS: 36415; 85610

== ENCOUNTER 2021-04-30 11:26 | Outpatient (RCR) | payer MEDICARE, SELFPAY ==
[2021-03-25 12:46] LABS: INR 4.1; Prothrombin Time 38.6 Seconds (11.1-14.7)
[2021-04-30 12:14] LABS: INR 2.5
== END 2021-06-23 23:59 | disposition home or self-care (01) ==
LOC: ANHLAB 11:26
PROVIDERS: Visit Provider Internal Medicine Cardiovascular Disease
DX: I48.91 Unspecified atrial fibrillation (principal); Z95.2 Presence of prosthetic heart valve
CPT/HCPCS: 36415; 85610

== ENCOUNTER 2021-08-11 14:27 | Outpatient (RCR) | payer MEDICARE, SELFPAY ==
[2021-07-08 14:49] LABS: INR 2.4; Prothrombin Time 25.3 Seconds (11.1-14.7)
[2021-08-11 15:10] LABS: INR 1.4; Prothrombin Time 16.5 Seconds (11.1-14.7)
== END 2021-10-06 23:59 | disposition home or self-care (01) ==
LOC: ANHLAB 14:27
PROVIDERS: Visit Provider Internal Medicine Cardiovascular Disease
DX: Z51.81 Encounter for therapeutic drug level monitoring (principal); I48.91 Unspecified atrial fibrillation; Z95.2 Presence of prosthetic heart valve
CPT/HCPCS: 36415; 85610

== ENCOUNTER 2021-08-24 10:25 | Emergency (ER) | payer MEDICARE, SELFPAY ==
--- NOTE | ~2021-08-24 | US_ITS ---
EXAMINATION: US arterial duplex LE DATE: 08/24/2021 11:37 INDICATION: Peripheral arterial disease. TECHNIQUE: Multiple grayscale and Doppler ultrasound images of the left lower limb arteries were obta ined. COMPARISON: Arterial Doppler 06/30/2020. FINDINGS: Peak systolic velocity is 77 cm/s in left common femoral artery and 72 cm/s left profunda f emoral artery. There is no flow in left superficial femoral artery. There is total occlusion of left popliteal artery. There is an occluded popliteal to posterior tibial artery bypass graft. There is to rosa occlusion of left peroneal artery and posterior tibial artery and dorsalis pedis. IMPRESSION: 1. Total occlusion of left superficial femoral artery, popliteal artery, posterior tibial artery, per knox artery, and dorsalis pedis. Totally occluded bypass graft from left popliteal artery to posteri or tibial artery. I discussed this case with Dr. Burden. Reviewed, dictated and finalized at [facility]. IMPRESSION: 1. Total occlusion of left superficial femoral artery, popliteal artery, stem roller ior tibial artery, peroneal artery, and dorsalis pedis. Totally occluded bypass graft from left popliteal artery to posterior tibial artery. I discussed this case with Dr. Burden.
--- NOTE | ~2021-08-24 | US_ITS ---
US venous doppler [facility] DATE: 08/24/2021 11:36 INDICATION: Cold numb left foot TECHNIQUE: Real-time and color flow imaging and Doppler analysis of the veins of the left lower extre mity COMPARISON: August 04, 2019 venous duplex examination of the left leg FINDINGS: The left greater saphenous vein is patent. There is spontaneous and phasic flow and normal augmentation and color flow signal and normal compression of the deep veins of the left lower extremi ty. IMPRESSION: No evidence of deep venous thrombosis of left lower extremity Reviewed, dictated and finalized at [facility]. Reviewed, dictated and finalized at [facility].
[2021-08-24 10:32] VITALS: BP 166/102; PULSE 92; RESP 16; TEMP 36.4
--- NOTE | 2021-08-24 11:06 | PC.NURSE ---
pt. to ultra sound
--- NOTE | 2021-08-24 11:23 | ECG_ITS ---
Measurements Intervals [place] Rate: 85 P: -25 OK: 156 QRS: 17 QRSD: 117 T: 80 QT: 397 QTc: 473 Interpretive Statements SINUS RHYTHM INFERIOR MYOCARDIAL INFARCTION , PROBABLY OLD [40+ ms Q WAVE AND/OR ST/T ABNORMALITY IN II/aVF] COMPARED TO ECG 06/30/2020 14:52:06 SINUS RHYTHM REPLACES ATRIAL FLUTTER Electronically Signed On 08-24-2021 16:28:40 CDT by Onel Morales M.D.
--- NOTE | 2021-08-24 11:24 | ED.EXTPRO ---
HPI - Extremity Problem General Chief complaint: Extremity Problem,Nontraumatic Stated complaint: blood clot? Time Seen by Provider: 08/24/21 11:23 Source: patient Mode of arrival: ambulatory Limitations: no limitations History of Present Illness HPI Narrative: The patient is a 65-year-old male with a complex past medical history including: Hypertension, hyperlipidemia, coronary artery disease status with history of CABG, CHF, mechanical aortic valve replacement on Coumadin, COPD, type 2 diabetes with peripheral neuropathy, severe PAD, bilateral coronary artery disease, presenting to the emergency department for evaluation of left lower extremity pain, numbness, bruising. Patient noted to have a cool, mottled left lower extremity on exam when presented to triage. Patient states he has been compliant with his anticoagulation. Patient has been experiencing bruising, skin changes, cold left lower extremity over the past 48 hours. He reports an aching pain behind his left knee. Pulses were not able to be palpated, pulses were not able to be dopplered, thus patient taken for emergent JOSE, ultrasound. I reviewed the patient's chart with recent admission and transfer to [facility] for ischemic right lower extremity and patient did obtain amputation. Per chart review from medical rehabilitation status post right fem pop bypass in 2019 a left femoral endarterectomy and profundus plasty with left femoral BK pop bypass graft in 2019. Pt has been compliant with his medications. Related Data Home Medications Medication Instructions Recorded Confirmed escitalopram oxalate [Lexapro] 20 mg PO DAILY 05/10/19 07/11/20 Nitrostat 0.4 mg SUBLINGUAL Q5M PRN 07/11/20 07/11/20 Toprol XL 12.5 mg PO DAILY 07/11/20 07/11/20 acetaminophen 1,000 mg PO Q6H PRN 07/11/20 07/11/20 amitriptyline 25 mg PO HS 07/11/20 07/11/20 polyethylene glycol 3350 [Miralax] 17 g PO DAILY 07/11/20 07/11/20 rosuvastatin [Crestor] 40 mg PO DAILY 07/11/20 07/11/20 sennosides-docusate sodium [Senna 1 tab-cap PO BID 07/11/20 07/11/20 with Docusate Sodium] magnesium oxide 400 mg PO DAILY 07/12/20 07/12/20 Allergies Allergy/AdvReac Type Severity Reaction Status Date / Time adhesive tape Allergy Blister Verified 07/11/20 15:51 rofecoxib Allergy Swelling Verified 07/11/20 15:51 Review of Systems Review of Systems: ROS unobtainable: Yes unobtainable due to medical condition [facility] Past Medical History Medical History Angina at rest Atrial flutter Congestive heart failure Echocardiogram July 2018 showed ejection fraction of 30 to 35% with moderate to severe mitral regurgitation, aortic valve area of 1.3 centimeter squared with mean gradient 8 millimeters of mercury, mild tricuspid regurgitation, and RVSP of 50 to 55 millimeters of mercury. Coronary artery disease Depression Diabetes History of left common carotid artery stent placement March 2019, Bib Bender History of right common carotid artery stent placement December 2018, Bib Villarreal Hyperlipidemia Hypertension Ischemic cardiomyopathy Myocardial infarction Neoplasm of prostate Peripheral neuropathy Peripheral vascular disease 2013: Bilateral common femoral artery rectum ease and patch angioplasty by Dr. Moreno 2014: Complex intervention of both femoral arteries and SFA is by Dr. Yancey Tobacco use Surgical History Surgical History H/O aortic valve replacement 2003, mechanical aortic valve replacement H/O mechanical aortic valve replacement H/O Spinal surgery H/O vascular surgery Bilateral common femoral endarterectomy with patch angioplasty in 2012. Status post complex intervention of, and superficial femoral artery History of cardiac cath 03/2011: SVG to PDA occluded, radial to OM was string sign, and MALDONADO to LAD was patent. 09/2018: Chronic total occlusion of the mid LAD and mid RCA as well as pro
[2021-08-24] MEDS: SODIUM CHLORIDE 0.9% IV 1,000 ML 999 ML IV CONT (12:09)
[2021-08-24] MEDS: HEPARIN SODIUM 5,000 UNITS/ML VIAL 6000 UNITS IV PUSH (12:09)
[2021-08-24 12:10] LABS: Basophils Absolute Auto 0.1 K/mm3 (0.0-0.1); Basophils Percent Auto 0.5 % (0.2-1.2); Eosinophils Percent Auto 0.1 % (0-4.4); Hematocrit 56.2 % (42.0-52.0); Immature Granulocyte Absolute 0.08 K/mm3 (0.00-0.031); Immature Granulocyte Percent A 0.5 % (0-0.5); Lymphocytes Absolute Auto 1.11 K/mm3 (0.9-3.2); Lymphocytes Percent Auto 6.7 % (18.3-44.2); Mean Corpuscular Hemoglobin 30.7 pg (26-34); Mean Corpuscular Volume 95.7 fl (80-100); Mean Platelet Volume 10.7 fl (7.4-10.4); Monocytes Absolute Auto 1.1 K/mm3 (0.1-0.6); Monocytes Percent Auto 6.7 % (2.6-8.5); Neutrophils Absolute Auto 14.2 K/mm3 (1.3-6.7); Neutrophils Percent Auto 85.5 % (45.5-73.1); Platelet Count Result 297 k/mm3 (150-375); Red Blood Count 5.87 M/mm3 (4.6-6.20); Red Cell Distribution Width 14.4 % (11.5-14.5); White Blood Count 16.6 K/mm3 (4.5-10.0)
[2021-08-24] MEDS: HEPARIN SOD/D5W 100 UNITS/ML 25,000 UNITS/250 ML BAG 14 UNITS IV CONT (12:20)
[2021-08-24 12:23] LABS: Alanine Aminotransferase 18 U/L (4-50); Albumin Level 4.5 g/dL (3.5-5.1); Alkaline Phosphatase 93 U/L (38-126); Anion Gap 10 mmol/L (8-16); Aspartate Amino Transferase 57 U/L (17-59); Bilirubin,Total 0.7 mg/dL (0.2-1.3); Blood Urea Nitrogen 27 mg/dL (9-20); Calcium 9.1 mg/dL (8.4-10.2); Carbon Dioxide 26 mmol/L (22-30); Chloride 98 mmol/L (98-107); Estimated CRCL calculation 58 ml/min; Estimated Glomerular Filt Rate > 60; Glucose 218 mg/dL (65-110); Lactic Acid Reflex 1.8 mmol/L (0.7-2.1); Potassium 4.7 mmol/L (3.4-5.0); Sodium 134 mmol/L (137-145)
[2021-08-24 12:26] LABS: INR 2.3; Prothrombin Time 24.8 Seconds (11.1-14.7)
[2021-08-24 12:27] LABS: Partial Thromboplastin Time 45.9 SECONDS (22.3-36.8)
[2021-08-24 12:29] LABS: SARS-CoV-2 RNA PCR Negative
--- NOTE | 2021-08-24 12:39 | PC.NURSE ---
per dr sharlene doll and gautam [facility] accepted transfer to [facility] ETA 17min trip # [id number]
[2021-08-24 13:05] VITALS: BP 154/102; PULSE 92; RESP 17; O2SAT 96
== END 2021-08-24 13:05 | disposition short-term general hospital (02) ==
PROVIDERS: Emergency Provider Emergency Medicine
DX: I70.322 Atherosclerosis of unspecified type of bypass graft(s) of the extremities with rest pain, left leg (principal); I70.222 Atherosclerosis of native arteries of extremities with rest pain, left leg; Z20.822 Contact with and (suspected) exposure to COVID-19; E78.5 Hyperlipidemia, unspecified; I50.9 Heart failure, unspecified; I11.0 Hypertensive heart disease with heart failure; J44.9 Chronic obstructive pulmonary disease, unspecified; E11.42 Type 2 diabetes mellitus with diabetic polyneuropathy; E11.51 Type 2 diabetes mellitus with diabetic peripheral angiopathy without gangrene; Z95.1 Presence of aortocoronary bypass graft; Z95.2 Presence of prosthetic heart valve; Z95.5 Presence of coronary angioplasty implant and graft; I25.2 Old myocardial infarction; I25.5 Ischemic cardiomyopathy; Z85.46 Personal history of malignant neoplasm of prostate; Z98.49 Cataract extraction status, unspecified eye; F17.210 Nicotine dependence, cigarettes, uncomplicated; Z79.82 Long term (current) use of aspirin; Z79.01 Long term (current) use of anticoagulants
CPT/HCPCS: 36415; 80053; 83605; 85025; 85610; 85730; 86850; 86900; 86901; 87040; 93005; 93926; 93971; 96365; 99285; C9803; J1644; J7030; U0003; U0005

== ENCOUNTER 2021-09-18 15:28 | Outpatient (CLI) | payer MEDICARE, SELFPAY ==
[2021-09-18 16:26] LABS: Hematocrit 37.1 % (42.0-52.0); Hemoglobin 11.4 g/dL (14.0-18.0); Mean Corpuscular HGB Conc 30.7 g/dl (32-36); Mean Corpuscular Hemoglobin 29.6 pg (26-34); Mean Corpuscular Volume 96.4 fl (80-100); Mean Platelet Volume 9.9 fl (7.4-10.4); Platelet Count Result 484 k/mm3 (150-375); Red Blood Count 3.85 M/mm3 (4.6-6.20); White Blood Count 10.8 K/mm3 (4.5-10.0)
[2021-09-18 16:37] LABS: INR 2.6; Prothrombin Time 27.2 Seconds (11.1-14.7)
[2021-09-18 16:38] LABS: Alanine Aminotransferase 12 U/L (6-50); Albumin Level 3.8 g/dL (3.5-5.1); Alkaline Phosphatase 89 U/L (38-126); Anion Gap 3 mmol/L (8-16); Aspartate Amino Transferase 24 U/L (17-59); Bilirubin,Total 0.2 mg/dL (0.2-1.3); Blood Urea Nitrogen 19 mg/dL (9-20); Calcium 8.4 mg/dL (8.4-10.2); Carbon Dioxide 36 mmol/L (22-30); Chloride 99 mmol/L (98-107); Cholesterol 209 mg/dL (0-200); Estimated Glomerular Filt Rate > 60; Glucose 158 mg/dL (65-110); HDL Direct 33 mg/dL; Potassium 3.8 mmol/L (3.4-5.0); Sodium 138 mmol/L (137-145); Triglycerides 130 mg/dL (<150)
[2021-09-18 16:49] LABS: LDL Cholesterol Direct 123 mg/dL
[2021-09-18 17:08] LABS: Prostate Specific Antigen 0.4 ng/mL (< OR = 4.0); Thyroid Stimulating Hormone 0.543 uIU/mL (0.465-4.680)
[2021-09-18 17:40] LABS: Creatinine Urine 24.3 mg/dL
[2021-09-18 17:45] LABS: MALB Creatinine Ratio 45.3 mg/g (0-30)
[2021-09-18 17:58] LABS: Hepatitis C Virus Antibody Negative (Negative)
[2021-09-18 19:32] LABS: Hemoglobin A1C 7.3 % (<5.7)
== END 2021-09-18 15:29 | disposition home or self-care (01) ==
LOC: ANHLAB 15:40
DX: I48.91 Unspecified atrial fibrillation (principal); I50.9 Heart failure, unspecified; E11.69 Type 2 diabetes mellitus with other specified complication; E78.5 Hyperlipidemia, unspecified; E11.59 Type 2 diabetes mellitus with other circulatory complications; Z79.4 Long term (current) use of insulin; Z12.5 Encounter for screening for malignant neoplasm of prostate; Z11.59 Encounter for screening for other viral diseases
CPT/HCPCS: 36415; 80053; 80061; 82043; 83036; 84153; 84443; 85027; 85610; 86803; G0103

== ENCOUNTER 2022-03-08 16:46 | Outpatient (RCR) | payer MEDICARE, SELFPAY ==
[2021-12-08 13:20] LABS: INR 1.5; Prothrombin Time 17.6 Seconds (11.1-14.7)
[2021-12-17 14:41] LABS: INR 2.3; Prothrombin Time 24.6 Seconds (11.1-14.7)
[2022-02-02 12:56] LABS: INR 2.1; Prothrombin Time 23.2 Seconds (11.1-14.7)
[2022-03-08 17:58] LABS: INR 1.7; Prothrombin Time 19.2 Seconds (11.1-14.7)
== END 2022-03-08 23:59 | disposition home or self-care (01) ==
LOC: ANHLAB 16:46
PROVIDERS: Visit Provider Internal Medicine Cardiovascular Disease
DX: Z51.81 Encounter for therapeutic drug level monitoring (principal); I48.91 Unspecified atrial fibrillation; Z95.2 Presence of prosthetic heart valve; Z79.899 Other long term (current) drug therapy
CPT/HCPCS: 36415; 85610

== ENCOUNTER 2022-03-22 10:42 | Outpatient (CLI) | payer MEDICARE, SELFPAY ==
[2022-03-22 11:48] LABS: INR 1.9; Prothrombin Time 21.3 Seconds (11.1-14.7)
== END 2022-03-22 10:43 | disposition home or self-care (01) ==
PROVIDERS: Visit Provider Internal Medicine Cardiovascular Disease
DX: I48.91 Unspecified atrial fibrillation (principal); Z95.2 Presence of prosthetic heart valve
CPT/HCPCS: 36415; 85610

== ENCOUNTER 2022-07-07 12:15 | Outpatient (RCR) | payer MEDICARE, SELFPAY ==
[2022-04-12 17:08] LABS: INR 2.7; Prothrombin Time 27.4 Seconds (11.1-14.7)
[2022-07-07 13:24] LABS: INR 2.9; Prothrombin Time 29.4 Seconds (11.1-14.7)
== END 2022-07-11 23:59 | disposition home or self-care (01) ==
LOC: ANHLAB 12:15
PROVIDERS: Visit Provider Internal Medicine Cardiovascular Disease
DX: Z51.81 Encounter for therapeutic drug level monitoring (principal); I48.91 Unspecified atrial fibrillation; Z95.2 Presence of prosthetic heart valve; Z79.01 Long term (current) use of anticoagulants
CPT/HCPCS: 36415; 85610

== ENCOUNTER 2022-07-29 00:34 | Day surgery (SDC) | payer MEDICARE, SELFPAY ==
[2022-07-28 12:32] VITALS: BMI 35.1
[2022-07-29] VITALS (11 sets, daily range): BP systolic 117–148; BP diastolic 71–88; PULSE 68–84; RESP 13–20; TEMP 36.3–36.8; O2SAT 93–98; BMI 36.6
--- NOTE | ~2022-07-29 | XR_ITS ---
Portable chest x-ray Comparison: 07/04/2019 Clinical History: Pacemaker placement Findings: Lungs are clear, without focal consolidation or pleural effusion. No pneumothorax. Cardio mediastinal silhouette is stable, status post pacemaker placement. Stable postoperative changes in th e left neck noted. Impression: Status post pacemaker placement. Clear lungs. No pneumothorax. Reviewed, dictated and finalized at location . Impression: Status post pacemaker placement. Clear lungs. No pneumothorax.
--- NOTE | ~2022-07-29 | XR_ITS ---
XR chest 2V DATE: 07/30/2022 08:15 INDICATION: Pacemaker insertion TECHNIQUE: AP and lateral views COMPARISON: 07/29/2022 portable upright AP chest at 1403 hours FINDINGS: Left transvenous pacemaker device with leads overlying right ventricle. Status post sternotomy and cardiac valve replacement. Normal heart size. No hilar or mediastinal enla rgement. No pulmonary infiltrate or consolidation, pleural effusion or pulmonary vascular congestion or pneumo thorax. IMPRESSION: Left-sided transvenous pacemaker device Status post sternotomy and cardiac valve replacement No active pulmonary disease Reviewed, dictated and finalized at location B.
[2022-07-29 10:34] LABS: Basophils Absolute Auto 0.1 K/mm3 (0.0-0.1); Basophils Percent Auto 0.5 % (0.2-1.2); Eosinophils Absolute Auto 0.1 K/mm3 (0-0.3); Eosinophils Percent Auto 0.5 % (0-4.4); Hematocrit 51.4 % (42.0-52.0); Hemoglobin 16.6 g/dL (14.0-18.0); Immature Granulocyte Absolute 0.06 K/mm3 (0.00-0.031); Immature Granulocyte Percent A 0.4 % (0-0.5); Lymphocytes Absolute Auto 1.53 K/mm3 (0.9-3.2); Lymphocytes Percent Auto 11.3 % (18.3-44.2); Mean Corpuscular HGB Conc 32.3 g/dl (32-36); Mean Corpuscular Hemoglobin 30.6 pg (26-34); Mean Corpuscular Volume 94.8 fl (80-100); Mean Platelet Volume 9.8 fl (7.4-10.4); Monocytes Absolute Auto 1.1 K/mm3 (0.1-0.6); Neutrophils Absolute Auto 10.7 K/mm3 (1.3-6.7); Neutrophils Percent Auto 79.3 % (45.5-73.1); Platelet Count Result 223 k/mm3 (150-375); Red Blood Count 5.42 M/mm3 (4.6-6.20); White Blood Count 13.5 K/mm3 (4.5-10.0)
[2022-07-29 10:42] LABS: Anion Gap 7 mmol/L (8-16); Blood Urea Nitrogen 15 mg/dL (9-20); Calcium 8.5 mg/dL (8.4-10.2); Carbon Dioxide 31 mmol/L (22-30); Chloride 98 mmol/L (98-107); Estimated Glomerular Filt Rate > 60; Glucose 183 mg/dL (65-110); Potassium 4.1 mmol/L (3.4-5.0); Sodium 136 mmol/L (137-145)
[2022-07-29 10:48] LABS: INR 1.2; Prothrombin Time 14.9 Seconds (11.1-14.7)
--- NOTE | 2022-07-29 11:19 | PM.IMHP ---
H&P: HPI History of Present Illness Date/Time: 07/29/22 11:19 Chief Complaint: Ischemic cardiomyopathy, EF 30%, at risk for sudden cardiac . Narrative: Mr. Onel He is a 67-year-old male with a long history of CAD, and ischemic cardiomyopathy. He had a [facility] mechanical aortic valve replacement in , CABG in 2009. He has had CHF, atrial flutter, PAD status post bilateral AKAs, carotid stenosis status post TCAR, hypertension, dyslipidemia, diabetes, smoking. He has been on medical therapy for years and his ejection fraction is still low, with his recent echo showing an EF of 30%. He is here for implantation of a single lead ICD for prevention of sudden cardiac . He is feeling well today, NPO. Last dose of warfarin was Tuesday. Review of Systems Constitutional: Constitutional: Reports fatigue, Denies fever(s) and Reports lethargy Comments: Tired a lot Eyes: Eyes: Reports no additional eye complaints ENT: Comments: Has a loose tooth upper jaw, no other teeth in the upper jaw. Cardiovascular: Cardiovascular: Denies chest pain, Denies pedal edema, Denies lightheadedness and Reports dyspnea Respiratory: Respiratory: Denies chest congestion, Reports dyspnea and Reports dyspnea on exertion Gastrointestinal: Gastrointestinal: Denies abdominal pain and Denies hematochezia Musculoskeletal: Musculoskeletal: Reports no additional musculoskeletal complaints Comments: Gets around in a wheelchair Integumentary/Breasts: Skin/Breast: Reports system reviewed and no additional complaints, except as docu Neurologic: Reports system reviewed and no additional complaints, except as documented, Denies behavioral changes and Denies confusion Psychiatric: Psychiatric: Denies behavioral changes and Denies confusion [facility] Past Medical History Medical History Angina at rest Atrial flutter Congestive heart failure Echocardiogram July 2018 showed ejection fraction of 30 to 35% with moderate to severe mitral regurgitation, aortic valve area of 1.3 centimeter squared with mean gradient 8 millimeters of mercury, mild tricuspid regurgitation, and RVSP of 50 to 55 millimeters of mercury. Coronary artery disease Depression Diabetes History of left common carotid artery stent placement March 2019, Bib Bender History of right common carotid artery stent placement December 2018, Bib Villarreal Hyperlipidemia Hypertension Ischemic cardiomyopathy Myocardial infarction Neoplasm of prostate Peripheral neuropathy Peripheral vascular disease 2013: Bilateral common femoral artery rectum ease and patch angioplasty by Dr. Moreno 2014: Complex intervention of both femoral arteries and SFA is by Dr. Yancey Tobacco use Surgical History Surgical History H/O aortic valve replacement 2003, mechanical aortic valve replacement H/O mechanical aortic valve replacement H/O Spinal surgery H/O vascular surgery Bilateral common femoral endarterectomy with patch angioplasty in 2012. Status post complex intervention of, and superficial femoral artery History of cardiac cath 03/2011: SVG to PDA occluded, radial to OM was string sign, and MALDONADO to LAD was patent. 09/2018: Chronic total occlusion of the mid LAD and mid RCA as well as proximal circumflex with patent MALDONADO to LAD. History of endarterectomy Bilateral. S/P CABG x 2 2009. Status post cataract extraction Family History Family History Mother Diabetes mellitus Breast cancer Hypertension Sibling Diabetes mellitus Hypertension Father Hypertension Pneumonia Social History Social History Social History: Lives with girlfriend, Nathaly, in [place]. They have a pit bull named Dayna and a pot belly pig named Thien. 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 Smokes half a pa
--- NOTE | 2022-07-29 11:31 | WPDMODSED ---
Moderate Sedation Note-Pt Data Patient Data Diagnosis: Ischemic cardiomyopathy, at risk of sudden cardiac , EF 30% Present Complaint: Ischemic cardiomyopathy, at risk of sudden cardiac , EF 30% Procedure to be performed/Plan: Conscious sedation Venogram Implantation of a single lead ICD Allergies Allergy/AdvReac Type Severity Reaction Status Date / Time adhesive tape Allergy Blister Verified 07/29/22 10:35 rofecoxib Allergy Swelling Verified 07/29/22 10:35 Home Medications Medication Instructions Recorded Confirmed Type rosuvastatin 40 mg tablet (Crestor) 40 mg PO HS 07/11/20 07/28/22 History empagliflozin 10 mg tablet 10 mg PO HS 01/25/22 07/28/22 History (Jardiance) furosemide 40 mg tablet (Lasix) 40 mg PO DAILY 01/25/22 07/28/22 History metoprolol succinate 25 mg capsule 12.5 mg PO HS 01/25/22 07/28/22 History sprinkle, ext. release 24 hr nitroglycerin 0.4 mg sublingual 0.4 mg sublingual Q5-15M PRN Chest 01/25/22 07/28/22 History tablet Pain sacubitril 49 mg-valsartan 51 mg 1 tablet PO BID 01/25/22 07/28/22 History tablet (Entresto) warfarin 2 mg tablet 2 mg PO WEEKLY 01/25/22 07/28/22 History cyclobenzaprine 5 mg tablet 5 mg PO BID 07/28/22 07/28/22 History escitalopram oxalate 20 mg tablet 20 mg PO HS 07/28/22 07/28/22 History ezetimibe 10 mg tablet 10 mg PO HS 07/28/22 07/28/22 History gabapentin 300 mg capsule 300 mg PO BID 07/28/22 07/28/22 History warfarin 5 mg tablet 5 mg PO HS 07/28/22 07/28/22 History Sedation/Anesthesia: No previous sedation/anesthesia problems (including family history). [facility] Past Medical History Medical History Angina at rest Atrial flutter Congestive heart failure Echocardiogram July 2018 showed ejection fraction of 30 to 35% with moderate to severe mitral regurgitation, aortic valve area of 1.3 centimeter squared with mean gradient 8 millimeters of mercury, mild tricuspid regurgitation, and RVSP of 50 to 55 millimeters of mercury. Coronary artery disease Depression Diabetes History of left common carotid artery stent placement March 2019, Bib Bender History of right common carotid artery stent placement December 2018, Bib Villarreal Hyperlipidemia Hypertension Ischemic cardiomyopathy Myocardial infarction Neoplasm of prostate Peripheral neuropathy Peripheral vascular disease 2012: Bilateral common femoral artery rectum ease and patch angioplasty by Dr. Moreno 2014: Complex intervention of both femoral arteries and SFA is by Dr. Yancey Tobacco use Surgical History Surgical History H/O aortic valve replacement 2003, mechanical aortic valve replacement H/O mechanical aortic valve replacement H/O Spinal surgery H/O vascular surgery Bilateral common femoral endarterectomy with patch angioplasty in 2012. Status post complex intervention of, and superficial femoral artery History of cardiac cath 03/2011: SVG to PDA occluded, radial to OM was string sign, and MALDONADO to LAD was patent. 09/2018: Chronic total occlusion of the mid LAD and mid RCA as well as proximal circumflex with patent MALDONADO to LAD. History of endarterectomy Bilateral. S/P CABG x 2 2009. Status post cataract extraction Family History Family History Mother Diabetes mellitus Breast cancer Hypertension Sibling Diabetes mellitus Hypertension Father Hypertension Pneumonia Social History Social History Social History: Lives with girlfriend, Nathaly, in [place]. They have a pit bull named Dayna and a pot belly pig named Thien. 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 Smokes half a pack per day, but smoked as much as 2 packs of cigarettes a day. Occasionally smokes marijuana. Denies alcohol abuse. he designates his girlfriend, Dari, as his surrogate decision maker and wi
--- NOTE | 2022-07-29 13:40 | ECG_ITS ---
Measurements Intervals [place] Rate: 75 P: 39 OR: 211 QRS: 38 QRSD: 106 T: 197 QT: 368 QTc: 412 Interpretive Statements SINUS RHYTHM ATRIAL AND VENTRICULAR PREMATURE COMPLEXES BORDERLINE ST-T WAVE ABNORMALITY- DIFFUSE LEADS BASELINE ARTIFACT- I, II, III, AVR, AVL, AVF, V1, V3 BORDERLINE ECG COMPARED TO ECG 08/24/2021 12:28:30 NO SIGNIFICANT CHANGES Electronically Signed On 07-29-2022 14:01:30 CDT by Jake Bird D.O.
--- NOTE | 2022-07-29 13:43 | PM.OP ---
Procedure Note - Brief Procedure Note - Brief Date of procedure: 07/29/22 Pre-op diagnosis: ischemic cardiomyopathy At risk for sudden cardiac Post-op diagnosis: Same Procedure performed: conscious sedation Venogram Implantation of a single lead transvenous ICD Description of procedure: uneventful ICD placement Surgeon: Magaly Rendon MD Complications: None Condition: Stable Disposition: Observation
--- NOTE | 2022-07-29 13:44 | W.PM.PROC2 ---
Procedure Note - Detailed Date of Procedure 07/29/22 Pre-op Diagnosis ischemic cardiomyopathy, at risk for sudden cardiac . History of mechanical aortic valve replacement. Post-op Diagnosis Same Procedure Performed Conscious sedation Venogram Implantation of a transvenous single lead [employer]ronik ICD Surgeon Magaly Rendon MD Anesthesia Local ( with conscious sedation) Indications Mr. Onel He is a 67-year-old male with a long history of CAD, and ischemic cardiomyopathy.? He had a [facility] mechanical aortic valve replacement in , CABG in 2009.? He has had CHF, atrial flutter, PAD status post bilateral AKAs, carotid stenosis status post TCAR, hypertension, dyslipidemia, diabetes, smoking.? He has been on medical therapy for years and his ejection fraction is still low, with his recent echo showing an EF of 30%.? He is here for implantation of a single lead ICD for prevention of sudden cardiac . Description of Procedure SITE: Left prepectoral area MEDICATIONS GIVEN IN CAUSTIC CRESYLATE SHIFT SUPERINTENDENT: Ancef 1 gram IV piggyback CONSCIOUS SEDATION: Assessment: The patient has no history of anesthesia problems. The patient's oropharynx is clear. The patient was deemed to be a good candidate for conscious sedation. The patient had continuous hemodynamic monitoring during the procedure. Start time: 11:52 a.m. Completion time: 1:34 p.m. Total conscious sedation time: 102 minutes Medications: Versed 3 mg, fentanyl 25 mcg IV push Trained observer: Annita Gilmore RN Outcome: The patient tolerated the procedure well with no complications. PROCEDURE: After informed consent , the patient was brought to the laboratory secretary and the left prepectoral area was prepped and draped in usual fashion . The patient received preop antibiotic with Ancefand conscious sedation . A venogram was performed showing the course of the left subclavian vein,which was narrow but patent. The left prepectoral area was anesthetized with lidocaine . Next a skin incision was made and carried down to the prepectoral fascia. Hemostasis was obtained using electrocautery . The pacer pocket was formed. The left subclavian vein was easily accessed with the micropuncture technique, and a J-tipped guide wire was passed into the inferior vena cava under fluoroscopic guidance. The needle was withdrawn. An 8 Sinhala safety sheath was passed over the lateral wire, the wire withdrawn, and the right ventricular lead was passed into the inferior vena cava under fluoroscopic guidance . The lead was then prolapsed through the tricuspid valve and advanced into the right ventricular apex. Placement was attempted several times as the patient's right ventricle appeared small and the apex appeared narrow as it was difficult to reach the apical position. When suitable sensing and pacing thresholds were obtained, it was screwed into place. No extra cardiac stimulation was obtained using 10 volts. The sheath was withdrawn. The lead was secured to the prepectoral fascia using 2-0 silk over their respective sleeves. The pocket was cleansed with antibiotic containing solution . The pulse generator was introduced into the operative field, and both atrial and ventricular leads were secured into the generator . A gentle tug showed the leads were securely fastened. The device was introduced into the pocket. A stay stitch was applied using 2 0 silk suture. The subcutaneous tissues were closed in a double layer fashion with interrupted sutures, using 2-0 Vicryl suture , and the skin was closed in a continuous fashion using 4-0 Vicryl suture in a continuous fashion. The area was cleansed, and an Aquacel dressing was applied . The patient tolerated the procedure well with no complications. PACEMAKER INFORMATION: Pulse generator: Biotronik Acticor 7 VR-T DX, model [id number], serial [id number] Right atrial /ventricular lead: Biotronik Plexa Pro MRI X DX 65/15, serial [id number] ALEX
--- NOTE | 2022-07-29 15:04 | SUR.PHASEII ---
Phase II completed @1500. See PCS for further care and documentation
[2022-07-29] MEDS: GABAPENTIN 300 MG CAPSULE PO (17:28)
[2022-07-29] MEDS: CYCLOBENZAPRINE HCL 5 MG TABLET PO (17:28)
[2022-07-29] MEDS: ceFAZolin 1 GM/NS 50 ML 1 GM/50 ML BAG IVPB (18:39)
[2022-07-29] MEDS: EZETIMIBE 10 MG TABLET PO (21:45)
[2022-07-29] MEDS: ESCITALOPRAM OXALATE 10 MG TABLET 20 MG PO (21:45)
[2022-07-29] MEDS: SACUBITRIL/VALSARTAN 49-51 MG TABLET 1 TABLET PO (21:45)
[2022-07-29] MEDS: ROSUVASTATIN 10 MG TABLET 40 MG PO (21:45)
[2022-07-29] MEDS: EMPAGLIFLOZIN 10 MG TABLET PO (21:46)
[2022-07-29] MEDS: METOPROLOL SUCCINATE EXT REL 12.5 MG TABCR PO (21:46)
[2022-07-30] VITALS: BP 118/79; PULSE 72; PULSE 76; RESP 14; TEMP 36.3; O2SAT 91
[2022-07-30] MEDS: ceFAZolin 1 GM/NS 50 ML 1 GM/50 ML BAG IVPB (03:43)
[2022-07-30 04:00] VITALS: BP 134/80; PULSE 84; PULSE 88; RESP 14; TEMP 36.2; O2SAT 91
[2022-07-30 08:00] VITALS: BP 145/88; PULSE 79; PULSE 82; RESP 18; TEMP 36.4; O2SAT 96
[2022-07-30] MEDS: GABAPENTIN 300 MG CAPSULE PO (08:03)
[2022-07-30] MEDS: FUROSEMIDE 40 MG TABLET PO (08:03)
[2022-07-30] MEDS: SACUBITRIL/VALSARTAN 49-51 MG TABLET 1 TABLET PO (08:03)
[2022-07-30] MEDS: CYCLOBENZAPRINE HCL 5 MG TABLET PO (08:03)
--- NOTE | 2022-07-30 08:29 | PM.DS ---
DS: Admitting Diagnosis Discharge Date 07/30/2022 Admitting Diagnosis Cardiomyopathy DS: Discharge Diagnosis Discharge Diagnosis (1) At risk for sudden cardiac : Code(s): Z91.89 - Other specified personal risk factors, not elsewhere classified Status: Acute Assessment and Plan: Patient with a long history of cardiomyopathy, heart failure, and persistently low ejection fraction. Recent echo showed EF 30%. He is here for implantation of a single lead ICD for primary prevention of sudden cardiac . He is now s/p ICD. (2) Ischemic cardiomyopathy: Code(s): I25.5 - Ischemic cardiomyopathy Status: Chronic Assessment and Plan: EF 30%. No evidence of CHF on exam. Continue current medication regimen (3) H/O mechanical aortic valve replacement: Code(s): Z95.2 - Presence of prosthetic heart valve Status: Chronic Assessment and Plan: [facility] aortic valve replacement, chronically anticoagulated. Last dose of warfarin was Tuesday. INR today is 1.2. DS: Summary Hospital Course Hospital Course: Admitted overnight for observation after elective ICD placement procedure. No nancy-procedural complications. OK for discharge today. Time Spent with Patient Time attestation: Total time spent providing and/or coordinating discharge services: Exam Const: General: cooperative, healthy appearing and comfortable; No confusion Orientation/consciousness: oriented to person, patient oriented x3 and No confusion HENMT: Mouth: Yes moist mucous membranes Other: Dental caries. One tooth present in the upper jaw which patient says is loose, missing some teeth in the lower jaw. Eyes: General: appearance abnormal, both eyes (Dysconjugate gaze) Neck: Neck: supple and no JVD Thyroid: thyroid normal Resp: Effort & Inspection: normal respiratory effort Auscultation: wheezes (Scattered mild wheezes) Cardio: Rate: regular rate Rhythm: regular rhythm Heart sounds: no murmurs GI: Inspection: normal to inspection Skin: General skin exam: normal color and no rashes or lesions noted Other: Multiple tattoos Neuro: General: oriented to person, patient oriented x3 and No confusion Extrem: Other: Bilateral AKAs Psych: Appearance: grossly normal Mental Status: mental status grossly normal DS: Data Data Completed and Pending Labs on day of discharge: Labs from last 24 hours 07/29/22 07/29/22 07/29/22 10:23 10:23 10:23 WBC 13.5 H RBC 5.42 Hgb 16.6 Hct 51.4 MCV 94.8 MCH 30.6 MCHC 32.3 RDW 15.0 H Plt Count 223 MPV 9.8 Immature Gran % (Auto) 0.4 Neut % (Auto) 79.3 H Lymph % (Auto) 11.3 L [place] % (Auto) 8.0 Eos % (Auto) 0.5 Baso % (Auto) 0.5 Lymph # (Auto) 1.53 [place] # (Auto) 1.1 H Eos # (Auto) 0.1 Baso # (Auto) 0.1 Abs Immat Gran (auto) 0.06 H Absolute Neuts (auto) 10.7 H Absolute Nucleated RBC 0.0 Nucleated RBC % 0.0 PT 14.9 H D INR 1.2 Sodium 136 L Potassium 4.1 Chloride 98 Carbon Dioxide 31 H Anion Gap 7 L BUN 15 Creatinine 0.70 Estim Creat Clear Calc Not Reportable Estimated GFR > 60 Glucose 183 H Calcium 8.5 Discharge Plan Discharge Patient Disposition: Home, Self-Care Discharge Instructions: [facility] [address] [place] [address] DISCHARGE INSTRUCTIONS - POST PACEMAKER Activity 1. No driving until you are seen in the o
[2022-07-30] MEDS: HYDROcodone/acetaminophen (*CRX) 5-325 MG TABLET 2 TAB PO (10:27)
[2022-07-30 12:00] VITALS: BP 122/82; PULSE 81; RESP 16; TEMP 36.1; O2SAT 97
== END 2022-07-30 13:40 | disposition home or self-care (01) ==
LOC: ANHCATHLAB 15:02 → ANHCPC 15:54 → ANH3MEDSUR 07-30 10:23
PROVIDERS: Visit Provider Internal Medicine Cardiovascular Disease
PROC: 0JH608Z Insertion of Defibrillator Generator into Chest Subcutaneous Tissue and Fascia, Open Approach (ICD-10-PCS; CPT 33249; principal; 2022-07-29 11:30)
DX: I25.5 Ischemic cardiomyopathy (principal); I25.10 Atherosclerotic heart disease of native coronary artery without angina pectoris; I11.0 Hypertensive heart disease with heart failure; I50.22 Chronic systolic (congestive) heart failure; E11.51 Type 2 diabetes mellitus with diabetic peripheral angiopathy without gangrene; E78.5 Hyperlipidemia, unspecified; I25.2 Old myocardial infarction; E11.42 Type 2 diabetes mellitus with diabetic polyneuropathy; Z95.2 Presence of prosthetic heart valve; Z95.1 Presence of aortocoronary bypass graft; Z89.612 Acquired absence of left leg above knee; Z89.611 Acquired absence of right leg above knee; Z91.89 Other specified personal risk factors, not elsewhere classified; Z79.84 Long term (current) use of oral hypoglycemic drugs; Z79.01 Long term (current) use of anticoagulants; F17.210 Nicotine dependence, cigarettes, uncomplicated; F12.90 Cannabis use, unspecified, uncomplicated
CPT/HCPCS: 33216; 33249; 36415; 71045; 71046; 80048; 85025; 85610; 93005; A9270; C1722; C1777; J0690; J2250; J3010; J7040

== ENCOUNTER 2022-08-30 12:04 | Outpatient (RCR) | payer MEDICARE, SELFPAY ==
[2022-08-11 14:00] LABS: INR 3.4; Prothrombin Time 32.9 Seconds (11.1-14.7)
[2022-08-30 12:45] LABS: INR 1.9; Prothrombin Time 23.6 Seconds (11.1-14.7)
== END 2022-10-20 23:59 | disposition home or self-care (01) ==
LOC: ANHLAB 12:04
PROVIDERS: Visit Provider Internal Medicine Cardiovascular Disease
DX: Z51.81 Encounter for therapeutic drug level monitoring (principal); I48.91 Unspecified atrial fibrillation; Z95.2 Presence of prosthetic heart valve; Z79.01 Long term (current) use of anticoagulants
CPT/HCPCS: 36415; 85610

== ENCOUNTER 2023-01-26 13:26 | Outpatient (RCR) | payer MEDICARE, SELFPAY ==
[2022-11-09 13:53] LABS: Prothrombin Time 59.4 Seconds (11.1-14.7)
[2022-11-15 16:37] LABS: Prothrombin Time 23.9 Seconds (11.1-14.7)
[2022-12-16 14:06] LABS: INR 2.2; Prothrombin Time 26.2 Seconds (11.1-14.7)
[2023-01-26 15:09] LABS: INR 1.4; Prothrombin Time 18.4 Seconds (11.1-14.7)
== END 2023-02-07 23:59 | disposition home or self-care (01) ==
LOC: ANHLAB 13:26
PROVIDERS: Visit Provider Internal Medicine Cardiovascular Disease
DX: Z51.81 Encounter for therapeutic drug level monitoring (principal); I48.91 Unspecified atrial fibrillation; Z95.2 Presence of prosthetic heart valve; Z79.01 Long term (current) use of anticoagulants
CPT/HCPCS: 36415; 85610

== ENCOUNTER 2023-04-18 11:24 | Outpatient (RCR) | payer MEDICARE, SELFPAY ==
[2023-02-09 12:53] LABS: INR 2.4; Prothrombin Time 27.8 Seconds (11.1-14.7)
[2023-04-07 13:41] LABS: INR 1.3; Prothrombin Time 16.6 Seconds (11.1-14.7)
[2023-04-18 11:58] LABS: INR 2.2; Prothrombin Time 25.9 Seconds (11.1-14.7)
== END 2023-05-10 23:59 | disposition home or self-care (01) ==
LOC: ANHLAB 11:24
PROVIDERS: Visit Provider Internal Medicine Cardiovascular Disease
DX: Z51.81 Encounter for therapeutic drug level monitoring (principal); I48.91 Unspecified atrial fibrillation; Z95.2 Presence of prosthetic heart valve; Z79.01 Long term (current) use of anticoagulants
CPT/HCPCS: 36415; 85610

== ENCOUNTER 2023-06-13 13:30 | Outpatient (RCR) | payer MEDICARE, SELFPAY ==
[2023-06-13 14:22] LABS: INR 2.3; Prothrombin Time 27.1 Seconds (11.1-14.7)
== END 2023-09-11 23:59 | disposition home or self-care (01) ==
LOC: ANHLAB 13:30
PROVIDERS: Visit Provider Internal Medicine Cardiovascular Disease
DX: Z51.81 Encounter for therapeutic drug level monitoring (principal); I48.91 Unspecified atrial fibrillation; Z95.2 Presence of prosthetic heart valve; Z79.01 Long term (current) use of anticoagulants
CPT/HCPCS: 36415; 85610

== ENCOUNTER 2023-11-24 13:00 | Outpatient (RCR) | payer MEDICARE, SELFPAY ==
[2023-11-24 13:57] LABS: INR 1.9; Prothrombin Time 22.3 Seconds (11.1-14.7)
== END 2024-02-22 23:59 | disposition home or self-care (01) ==
LOC: ANHLAB 13:00
PROVIDERS: Visit Provider Internal Medicine Cardiovascular Disease
DX: I48.91 Unspecified atrial fibrillation (principal); Z95.2 Presence of prosthetic heart valve
CPT/HCPCS: 36415; 85610